=== PATIENT | male | born 1945 | race Caucasian/White ===

== ENCOUNTER 2016-05-24 13:32 | Emergency (ER) | payer OTHER ==
[~2016-05-24] VITALS: Ht 177.8 cm; Wt 114.0 kg
[~2016-05-24 13:32] MED LIST: AMIT50TA3 PO; CHOL100010 PO; DOCU-94 PO; INSU70IN2 SC; LSN20 PO; MULT-506 PO; PANT40TA PO; POTA-331 PO; PREG1CAP28 PO
[2016-05-24 13:38] VITALS: TEMP 36.7; Ht 177.8 cm; Wt 114.0 kg
[2016-05-24] MEDS ORDERED: ALBUT/IPRATROP 3MG/0.5MG NEB 3 ML VIAL INH STA (13:42)
[2016-05-24 13:45] VITALS: O2SAT 99
[2016-05-24 14:30] LABS: BASO % 0.1 %; BASO ABS # 0.01 K/uL (0-0.2); COMPLETE YES; EOS % 1.2 %; HEMATOCRIT 35.9 % (42-52); IG% 0.7 %; LYMPH % 39.1 %; LYMPH ABS # 2.96 K/uL (1.2-3.4); MEAN CELL VOLUME 83.7 fL (80-100); MEAN CORPUSCULAR HEMOGLOBIN 28.7 pg (25-34); MEAN CORPUSCULAR HGB CONC 34.3 g/dl (32-36); MEAN PLATELET VOLUME 11.2 fL (7.4-10.4); MONO % 7.8 %; NEUT % 51.1 %; PLATELET COUNT 224 K/uL (130-400); RED BLOOD COUNT 4.29 M/uL (4.7-6.1); WHITE BLOOD COUNT 7.58 K/uL (4.8-10.8)
[2016-05-24] MEDS ORDERED: AMLO-110 PO (14:34)
[2016-05-24] MEDS ORDERED: LISI40TA PO (14:35)
[2016-05-24 14:46] LABS: INR 1.1 (0.9-1.1); PARTIAL THROMBOPLASTIN RATIO 0.9; PROTHROMBIN TIME (PATIENT) 12.3 SECONDS (9.0-12.0)
[2016-05-24 15:03] LABS: BLOOD UREA NITROGEN 16 mg/dl (7-18); BUN/CREATININE RATIO 14.4 (10-20); CALCIUM 9.5 mg/dl (8.5-10.1); CARBON DIOXIDE 29 mmol/L (21-32); CHLORIDE 101 mmol/L (98-107); GLUCOSE 144 mg/dl (70-99); SODIUM 140 mmol/L (136-145)
[2016-05-24 15:27] LABS: ALKALINE PHOSPHATASE 102 U/L (45-117); ALT/SGPT 49 U/L (12-78)
--- NOTE | 2016-05-24 15:30 | DIAGNOSTIC IMAGING REPORT ---
CHEST 2 VIEWS ROUTINE CLINICAL HISTORY: Respiratory distress. Shortness of breath. COMPARISON STUDY: Chest radiograph December 30, 2015. FINDINGS: Lung volumes are normal. There is no consolidation. Pulmonary vascularity is normal. Cardiac size is normal. Mediastinal contours are normal. The appearance of the chest is unchanged. IMPRESSION: No acute cardiopulmonary findings. Electronically signed by: Xavi Melissa M.D. 05/24/2016 3:29 PM
--- NOTE | 2016-05-24 15:34 | EMERGENCY ROOM VISIT NOTE ---
History Report prepared by Simon: Rohini Connolly Under the Supervision of: Dr. Chris Shahid D.O. First contact with patient: 13:37 Chief Complaint: SHORTNESS OF BREATH Stated Complaint: SHORTNESS OF BREATH History of Present Illness The patient is a 71 year old male who presents to the Emergency Room with complaints of increasing shortness of breath that began one week ago. The patient states that he was recently placed on a new blood pressure medication and since has noticed increasing shortness of breath. He states that he consulted his PCP and states that he was instructed to take an additionally dose of Lasix because he had swelling to his lower extremities. The patient denies his shortness of breath being worsened with exertion. He denies any recent cough, cold, or congestion. The patient denies being on supplemental oxygen at home chronically. He states that he was a previous smoker, but denies smoking for the past thirty years. The patient denies any pain to his lower extremities. Source of History: patient Onset: one week ago Position: other (global) Quality: other (shortness of breath) Timing: other (increasing) Associated Symptoms: No cough Review of Systems See HPI for pertinent positives & negatives. A total of 10 systems reviewed and were otherwise negative. Past Medical & Surgical Medical Problems: (1) Cellulitis of left thigh (2) Cellulitis of left thigh (3) Congestive heart failure (4) Coronary artery disease (5) Diabetic neuropathy (6) Diabetic peripheral neuropathy associated with type 2 diabetes mellitus (7) DM (diabetes mellitus) (8) Dysesthesia (9) Foot deformity (10) Hyperlipidemia (11) Hypertension (12) Loss of sensation (13) Unstable angina (14) Unstable angina (15) Vomiting blood Surgical Problems: (1) S/P angioplasties (2) S/P angioplasty with stent Family History FH: coronary artery disease Social History Smoking Status: Former Smoker Alcohol Use: none Drug Use: none Marital Status: in relationship Housing Status: lives with family Occupation Status: employed Current/Historical Medications Scheduled Amlodipine (Norvasc), 5 MG PO DAILY Aspirin (Aspirin Ec), 81 MG PO QAM Atorvastatin (Lipitor), 80 MG PO HS Budesonide/Formoterol Fumarate (Symbicort 160/4.5 Inhaler ), 2 PUFFS INH BID Carvedilol (Coreg), 25 MG PO BID Cholecalciferol (Vitamin D), 1,000 INTER.UNIT PO DAILY Cinnamon (Cinnamon), 500 MG PO DAILY Cyanocobalamin (Vitamin B-12), 1 TAB SL DAILY Furosemide (Lasix), 40 MG PO QAM Insulin Human Isophan/Regular (Novolin 70/30), 25 UNITS SC Morning Lisinopril (Prinivil), 40 MG PO DAILY Metformin Hcl (Glucophage), 1,000 MG PO BID Multivitamin (Multivitamin), 1 TAB PO QAM Nitroglycerin (Nitrostat), 0.4 MG UT PRN Pantoprazole (Protonix), 40 MG PO BID Potassium Chloride Microencaps (Klor-Con M10), 10 MEQ PO QPM Scheduled PRN Oxycodone/Acetaminophen 5MG/325MG (Percocet 5MG/325MG), 1 TAB PO BID PRN for Pain Ranitidine Hcl (Zantac), 300 MG PO HS PRN for PRN Allergies Coded Allergies: Clindamycin (Verified Allergy, Mild, RASH, 05/24/16) Physical Exam Vital Signs Date Time Temp Pulse Resp B/P Pulse Ox O2 Delivery O2 Flow Rate FiO2 05/24/16 15:24 61 22 117/61 98 Room Air 05/24/16 13:45 99 Room Air 05/24/16 13:41 99 Room Air 05/24/16 13:41 73 05/24/16 13:41 99 Room Air 05/24/16 13:38 36.7 83 16 162/84 98 Room Air Physical Exam CONSTITUTIONAL/VITAL SIGNS: Reviewed / noted above. GENERAL: Non-toxic in appearance. INTEGUMENTARY: Warm, dry, and [place]. HEAD: Normocephalic. EYES: without scleral icterus or trauma. ENT/OROPHARYNX: clear and moist. LYMPHADENOPATHY/NECK: Is supple without lymphadenopathy or meningismus. RESPIRATORY: Lungs clear and equal. CARDIOVASCULAR: Regular rate and rhythm. GI/ABDOMEN: Soft and nontender. No organomegaly or pulsatile mass. No rebound or guarding. Normal bowel sounds. EXTREMITIES: Warm and well perfused. BACK: No CVA tenderness. NEUROLOGICAL: Intact without focal deficits. PSYCHIATRIC: normal affect. MUSCULOSKELETAL: Normally developed with good muscle tone. Medical Decision & Procedures ER Provider Diagnostic Interpretation: X ray results and stated below per my interpretation and radiology interpretation. CHEST 2 VIEWS ROUTINE CLINICAL HISTORY: Respiratory distress. Shortness of breath. COMPARISON STUDY: Chest radiograph December 30, 2015. FINDINGS: Lung volumes are normal. There is no consolidation. Pulmonary vascularity is normal. Cardiac size is normal. Mediastinal contours are normal. The appearance of the chest is unchanged. IMPRESSION: No acute cardiopulmonary findings. Electronically signed by: Xavi Melissa M.D. 05/24/2016 3:29 PM Laboratory Results 05/24/16 14:00 Red Blood Count 4.29, Mean Corpuscular Volume 83.7, Mean Corpuscular Hemoglobin 28.7, Mean Corpuscular Hemoglobin Concent 34.3, Mean Platelet Volume 11.2, Neutrophils (%) (Auto) 51.1, Lymphocytes (%) (Auto) 39.1, Monocytes (%) (Auto) 7.8, Eosinophils (%) (Auto) 1.2, Basophils (%) (Auto) 0.1, Neutrophils # (Auto) 3.88, Lymphocytes # (Auto) 2.96, Monocytes # (Auto) 0.59, Eosinophils # (Auto) 0.09, Basophils # (Auto) 0.01 05/24/16 14:00 Test 05/24/16 14:00 White Blood Count 7.58 K/uL (4.8-10.8) Red Blood Count 4.29 M/uL (4.7-6.1) Hemoglobin 12.3 g/dL (14.0-18.0) Hematocrit 35.9 % (42-52) Mean Corpuscular Volume 83.7 fL (80-100) Mean Corpuscular Hemoglobin 28.7 pg (25-34) Mean Corpuscular Hemoglobin Concent 34.3 g/dl (32-36) Platelet Count 224 K/uL (130-400) Mean Platelet Volume 11.2 fL (7.4-10.4) Neutrophils (%) (Auto) 51.1 % Lymphocytes (%) (Auto) 39.1 % Monocytes (%) (Auto) 7.8 % Eosinophils (%) (Auto) 1.2 % Basophils (%) (Auto) 0.1 % Neutrophils # (Auto) 3.88 K/uL (1.4-6.5) Lymphocytes # (Auto) 2.96 K/uL (1.2-3.4) Monocytes # (Auto) 0.59 K/uL (0.11-0.59) Eosinophils # (Auto) 0.09 K/uL (0-0.5) Basophils # (Auto) 0.01 K/uL (0-0.2) RDW Standard Deviation 41.4 fL (36.4-46.3) RDW Coefficient of Variation 13.7 % (11.5-14.5) Immature Granulocyte % (Auto) 0.7 % Immature Granulocyte # (Auto) 0.05 K/uL (0.00-0.02) Prothrombin Time 12.3 SECONDS (9.0-12.0) Prothromb Time International Ratio 1.1 (0.9-1.1) Activated Partial Thromboplast Time 24.5 SECONDS (21.0-31.0) Partial Thromboplastin Ratio 0.9 D-Dimer 390 ug/L FEU (0-500) Anion Gap 10.0 mmol/L (3-11) Est Creatinine Clear Calc Drug Dose 76.8 ml/min Estimated GFR () 77.3 Estimated GFR (Non- 66.7 BUN/Creatinine Ratio 14.4 (10-20) Calcium Level 9.5 mg/dl (8.5-10.1) Total Bilirubin 1.3 mg/dl (0.2-1) Aspartate Amino Transf (AST/SGOT) U/L (15-37) Alanine Aminotransferase (ALT/SGPT) 49 U/L (12-78) Alkaline Phosphatase 102 U/L (45-117) Total Creatine Kinase U/L (39-308) Creatine Kinase MB 1.4 ng/ml (0.5-3.6) Creatine Kinase MB Ratio (0-3.0) Troponin I < 0.015 ng/ml (0-0.045) Pro-B-Type Natriuretic Peptide 35 pg/ml (0-900) Total Protein 8.2 gm/dl (6.4-8.2) Albumin 4.1 gm/dl (3.4-5.0) Globulin 4.1 gm/dl (2.5-4.0) Albumin/Globulin Ratio 1.0 (0.9-2) Laboratory results as stated above per my review. Medications Administered Medications (Trade) Dose Ordered Sig/Jodi Route Start Time Stop Time Status Last Admin Dose Admin Albuterol/ Ipratropium (Duoneb) 3 ml NOW STAT INH 05/24/16 13:42 05/24/16 13:43 DC 05/24/16 14:08 3 ML ECG Indication: SOB/dyspnea Rate (beats per minute): 65 Rhythm: normal sinus Findings: no acute ischemic change, no ectopy ED Course 1337: Previous medical records were reviewed. The patient was evaluated in room C10. A complete history and physical examination was performed. 1342: Ordered DuoNeb 3 ml INH. 1534: I reevaluated the patient and he is resting comfortably. I discussed the exam findings with him and I discussed the treatment plan. He verbalized complete understanding and agreement. He is ready to go home. Medical Decision the differential was considered includes acute myocardial infarction, acute coronary syndrome, myocarditis, pericarditis, pericardial effusions /tamponad, esophageal perforation, pulmonary embolism, pneumonia, pneumothorax, cardiomyopathy, congestive heart, anemia , COPD/asthma exacerbation. This is a 71-year-old male who presents to the ED with a chief complaint shortness of breath. The patient states that he is felt short of breath for 1- 2 weeks. He states that he saw his PCP for the symptoms. The PCP was concerned that his symptoms could be related to congestive heart failure. He was told to take additional Lasix. The patient's symptoms do not improve with this. He states that his symptoms are with or without exertion. He denies having any chest pains. No fevers. No other complaints. His vital signs are normal. His physical exam was normal. His lungs are clear. He is no distress. His oxygen saturations are 98% on room air. Laboratory studies included normal CBC and PRP. Chemistry panel was unremarkable. D-dimer is negative. Troponin was negative. BNP is normal. EKG showed a normal sinus rhythm without ischemic change. The patient was told the results the test. The exact cause the patient's dyspnea is unclear. He does not appear to be dyspneic. His lungs are clear. His oxygen saturations are normal. His vital signs are normal. His blood work and x-ray were unremarkable. The patient is felt to be stable for discharge and outpatient follow-up. Impression Primary Impression: Dyspnea Scribe Attestation The scribe's documentation has been prepared under my direction and personally reviewed by me in its entirety. I confirm that the note above accurately reflects all work, treatment, procedures, and medical decision making performed by me. Departure Information Dispostion Home / Self-Care Referrals RV. Quiroga MD (PCP) Forms HOME CARE DOCUMENTATION FORM, IMPORTANT VISIT INFORMATION Patient Instructions A Signature Page, My [facility] Additional Instructions Your testing today did not reveal a cause for your difficulty breathing. Follow -up with your doctor this week for recheck. Return for significant worsening or new symptoms.
[2016-05-24 16:53] VITALS: BP 148/67; PULSE 61; O2SAT 97
[2016-07-02] MEDS ORDERED: FURO40TA3 PO (08:31)
[2016-07-02] MEDS ORDERED: ASPI81TA28 PO (08:31)
[2016-07-02] MEDS ORDERED: NITR0.4S UT (08:31)
[2016-07-02] MEDS ORDERED: RANI300T PO (08:31)
[2016-07-02] MEDS ORDERED: METF1000 PO (08:31)
[2016-07-02] MEDS ORDERED: CINN500T PO (08:56)
[2016-07-02] MEDS ORDERED: OXYC-57 PO (10:05)
[2016-07-02] MEDS ORDERED: CARV25TA PO (13:48)
[2016-07-02] MEDS ORDERED: PANT40TA2 PO (15:32)
== END 2016-05-24 17:05 | disposition home or self-care (01) ==
LOC: EDBD 13:32 → C.EDC 13:34
DX: R06.00 Dyspnea, unspecified (principal); E11.9 Type 2 diabetes mellitus without complications; E78.5 Hyperlipidemia, unspecified; I10 Essential (primary) hypertension; Z79.82 Long term (current) use of aspirin; Z79.899 Other long term (current) drug therapy

== ENCOUNTER → 2016-05-26 | Outpatient (CLI) | payer OTHER ==
[~2016-05-26] MED LIST changes: -AMIT50TA3 PO; +AMLO-110 PO; +ANT25 PO; +ASPI81TA28 PO; +ATOR-26 PO; +CARV25TA PO; +CHOL1CAP57 PO; +CINN500T PO; +CYAN100048 SL; +FURO40TA3 PO; +ISOS30TA35 PO; +LISI40TA PO; +METF1000 PO; +MULT-106 PO; +NITR0.4S UT; +OPTIRAY 320 IV PRN; +OXYC-57 PO; +POTA10TA32 PO; -PREG1CAP28 PO; +PRT/40 PO; +RANI300T PO; +SYMIN160 INH
--- NOTE | 2016-05-26 14:01 | DIAGNOSTIC IMAGING REPORT ---
CT ANGIOGRAM OF THE CHEST CLINICAL HISTORY: Dyspnea. COMPARISON STUDY: Chest x-ray dated 05/24/2016. Chest CT scans dated 09/06/2015 and 11/12/2010. TECHNIQUE: Following the IV administration of 119 cc of Optiray 320, CT angiogram of the chest was performed from the upper abdomen to the thoracic inlet utilizing the pulmonary embolus protocol. Images are reviewed in the axial, sagittal, and coronal planes. 3-D MIPS images are created and assessed. IV contrast was administered without complication. CT DOSE: 678.53 mGycm FINDINGS: Thyroid: Imaged portions of the thyroid gland are normal in size and attenuation. Thoracic aorta: There is atherosclerotic calcification of the thoracic aorta, which is normal in caliber and demonstrates standard 4-vessel variant arch anatomy. No aneurysm or dissection is seen. Pulmonary vasculature: The pulmonary trunk is normal in caliber. There are no filling defects identified in main, lobar, or segmental pulmonary branches to suggest pulmonary embolus. Heart: The heart is mildly enlarged an without pericardial effusion. The coronary arteries are densely calcified. Lungs and pleural spaces: There is mild emphysema. No airspace consolidation or pleural effusion is seen. A 7 mm nodule in the lingula is seen on image #175. This was likely present in 2011 but was suboptimally assessed due to motion artifact. A 5 mm right lower lobe nodule is seen image #223 is unchanged from 2011. The trachea and central airways are clear. Mediastinum: There is no mediastinal lymphadenopathy. [place]: Clear. Axillae: There is no axillary lymphadenopathy. Upper abdomen: Calcified gallstones are identified. The liver is cirrhotic in morphology, noting nodularity of the surface contour and hypertrophy of the left lobe. There is evidence of hepatic steatosis with fatty sparing adjacent to gallbladder fossa. The spleen is enlarged measuring 16 cm in length. A small hiatal hernia is noted. Skeletal structures: The skeletal structures are osteopenic. Degenerative change and DISH are noted throughout the thoracic spine. No lytic or blastic bony lesions are seen. Arthritic change is seen in the shoulders. IMPRESSION: 1. There is no evidence of pulmonary embolus in the main, lobar, or segmental pulmonary arteries. 2. Cardiomegaly and mild emphysema. 3. There is no airspace consolidation or pleural effusion. 4. Cholelithiasis. 5. Cirrhotic liver morphology and splenomegaly indicating portal hypertension. There is also evidence of hepatic steatosis. 6. There are pulmonary nodules identified in the right lower lobe and lingula. These are likely unchanged from 2011 and of low suspicion. See above. Electronically signed by: Shon Hawthorne M.D. 05/26/2016 1:59 PM Dictated Date/Time: 05/26/2016 1:50 PM
== END | disposition home or self-care (01) ==
LOC: C.CTS 13:23
PROVIDERS: ATTEND Internal Medicine Pulmonary Disease
DX: R06.02 Shortness of breath (principal); R91.1 Solitary pulmonary nodule; I51.7 Cardiomegaly

== ENCOUNTER → 2016-05-29 | Outpatient (CLI) | payer OTHER ==
[~2016-05-29] MED LIST changes: -OPTIRAY 320 IV PRN
[2016-05-29 10:51] LABS: BLOOD UREA NITROGEN 12 mg/dl (7-18); CREATININE 0.96 mg/dl (0.60-1.40)
[2016-05-29 11:39] LABS: ESTIMATED AVERAGE GLUCOSE 171 mg/dl; HA1C FLAG Normal (Normal)
== END | disposition home or self-care (01) ==
LOC: C.LAB1850 09:51
PROVIDERS: ATTEND Internal Medicine Pulmonary Disease
DX: E11.65 Type 2 diabetes mellitus with hyperglycemia (principal)

== ENCOUNTER → 2016-06-08 | Outpatient (CLI) | payer OTHER ==
[~2016-06-08] MED LIST changes: +REGADENOSON 0.4 MG/5 ML SYR ONE
--- NOTE | 2016-06-09 03:11 | MYOCARDIAL PERFUSION SCAN ---
NUCLEAR STRESS TEST PRIMARY CARE PHYSICIAN: Dr. Hanley. REQUESTING PHYSICIAN: Dr. Bull Castillo. Type of study: One day nuclear medicine technetium-99m Cardiolite myocardial perfusion scan CLINICAL HISTORY: Known coronary artery disease, recent dyspnea on exertion. COMPARISON: None. EKG: At rest shows normal sinus rhythm at a rate of [address] abnormalities. STRESS EKG: Nondiagnostic with no regadenoson induced ST changes or arrhythmias. TECHNIQUE: For the stress portion of the study 33.0 mCi of technetium-99m Cardiolite IV was injected at 9:35 a.m. on 06/08/2016. Thirty minutes following the injection, imaging of the heart was performed in multiple projections. For the rest portion of the study 10.8 mCi of technetium-99m Cardiolite was injected IV at 7:45 a.m. One hour following the injection, imaging of the heart was performed in the same projections. TECHNIQUE: Raw images were reviewed in detail. There was a notable mild vertical motion on both stress and rest. There was moderate liver uptake potentially near the inferior border of the heart. Otherwise, no significant other attenuators noted. The short axis, vertical long axis, and horizontal long axis images were reviewed in detail. There was a small, mild, largely fixed defect involving the inferior wall from the base to apex. No evidence of visual TID. The LV systolic function was normal with an EF of 70%. There were no significant regional wall motion abnormalities noted. LV size was normal with an end-diastolic volume of 82. IMPRESSION: 1. Negative regadenoson Cardiolite for ischemia. There is a small, mild largely fixed inferior perfusion defect with no corresponding wall motion abnormality. This likely represent artifact; however, less likely could represent inferior infarct. 2. Normal left ventricular size and function. Ejection fraction 70%. No regional wall motion abnormalities. 3. Stress EKG was nondiagnostic with no regadenoson induced EKG changes or arrhythmias or symptoms. MTDD
== END | disposition home or self-care (01) ==
LOC: C.NUCL 07:00
PROVIDERS: ATTEND Internal Medicine Interventional Cardiology
DX: I25.10 Atherosclerotic heart disease of native coronary artery without angina pectoris (principal); R06.02 Shortness of breath

== ENCOUNTER → 2016-06-09 | Outpatient (CLI) | payer OTHER ==
[~2016-06-09] MED LIST changes: +GADOXETATE DISODIUM IV PRN; -REGADENOSON 0.4 MG/5 ML SYR ONE
--- NOTE | 2016-06-09 13:01 | DIAGNOSTIC IMAGING REPORT ---
MRI OF THE ABDOMEN COMBO CLINICAL HISTORY: Follow-up possible liver lesion. History of gastric surgery. COMPARISON STUDY: Abdominal CT dated 01/01/2016. TECHNIQUE: MRI of the abdomen is performed transverse T1 and T2-weighted sequences in the axial and coronal planes. Contrast enhanced sequences were acquired following the IV administration of 10 cc of Eovist. Subtraction imaging was utilized. FINDINGS: Lower chest: No pleural effusion is identified. The heart is normal in size. Liver: The liver is normal in enlarged, measuring 22.6 cm in length. There is mild nodularity of the hepatic surface contour with hypertrophy of the left lobe and caudate suggesting early changes of cirrhosis. Signal intensity is heterogeneous. There is diffuse drop in signal throughout the liver consistent with steatosis. Fatty sparing is seen adjacent to gallbladder fossa. No intrahepatic biliary ductal dilatation is seen. The hepatic veins and portal veins are patent. There is no hepatic mass lesion identified. The lesion questioned in segment 5 adjacent to gallbladder fossa by CT likely corresponds to focal lobulation and geographic fatty sparing. Gallbladder: Unremarkable. Spleen: The spleen is enlarged, measuring 16 cm in length. Pancreas: An 11 mm lipoma in the distal pancreatic body is unchanged from previous. The pancreas is otherwise normal as visualized. Adrenal glands: Unremarkable. Kidneys: The kidneys insert cortical atrophy and are without hydronephrosis. The kidneys enhance and excrete symmetrically. A 1.5 cm minimally complex cyst is noted in the left kidney. Abdominal aorta: The abdominal aorta is normal in course and caliber noting atherosclerotic plaque and regularity. Bowel: Postoperative changes identified along the greater curvature of the stomach. Stomach and duodenum are normal in configuration. There is no evidence of bowel obstruction. Fecal retention is noted in the colon. Peritoneum: There is no abdominal ascites. Lymphadenopathy: Prominent lymph nodes in the aleks hepatis and gastrohepatic region are nonspecific and may be related to cirrhosis and steatosis. These are similar to previous. Skeletal structures: Visualized skeletal structures times are normal marrow signal intensity. IMPRESSION: 1. No hepatic mass lesion is identified. The lesion questioned in segment V adjacent to the gallbladder fossa by CT likely represents focal contour lobulation and geographic fatty sparing. 2. The liver is enlarged and demonstrates early changes of cirrhosis as well as hepatic steatosis. 3. Postoperative changes are again seen along the greater curvature of the stomach. 4. Splenomegaly. 5. Prominent lymph nodes in aleks hepatis and gastrohepatic region are nonspecific and similar to previous. 6. Additional findings as above. Electronically signed by: Shon Hawthorne M.D. 06/09/2016 12:59 PM Dictated Date/Time: 06/09/2016 12:42 PM
== END | disposition home or self-care (01) ==
LOC: C.MRI 11:24
PROVIDERS: ATTEND Internal Medicine
DX: K31.9 Disease of stomach and duodenum, unspecified (principal); D21.4 Benign neoplasm of connective and other soft tissue of abdomen; K76.0 Fatty (change of) liver, not elsewhere classified; R16.1 Splenomegaly, not elsewhere classified; R93.2 Abnormal findings on diagnostic imaging of liver and biliary tract

== ENCOUNTER → 2016-06-28 | Outpatient (CLI) | payer OTHER ==
[~2016-06-28] MED LIST changes: -GADOXETATE DISODIUM IV PRN
--- NOTE | 2016-06-29 07:25 | PAP/PSG TECHNICIAN REPORT ---
[facility] Car Pincher Polysomnogram Report Study name: None Report date: 06/29/2016 Study date: 06/28/2016 Referring Physician: DR. WEN Name: CALLIE GARIBAY Interpreting Physician: Wyatt Hawkins M.D. Date of : 1945 Car Pincher: Betsy Smith [facility]. Sex: Male Age: 71 Study Type: PSG PAP Weight: 249 lbs 18 in Height: 71 years, Height 5' 11" Neck Circum: BMI: 34.72 Medications: AMITRIPTYLINE 50 MG, AMLODIPINE 5 MG, ASPIRIN 81 MG, ATORVASTATIN 80 MG, CARVEDILOL 25 MG, CINNAMON, COLACE, FUROSEMIDE 40 MG, LISINOPRIL 20 MG, MECLIZINE 25 MG, METFORMIN 1000 MG, NITROSTAT 0.4 MG, NOVOLIN 70/30 100 UNIT/ML, ONE-A-DAY VIT, OXYCODONE-ACTEAMINOPHEN 5-325 MG, PANTOPRAZOLE 40 MG, POTASSIUM CHOLRIDE 10 MEQ, RANITIDINE 300 MG, SYMBICORT 160-4.5 MCG/ACT, VIT B-12, VIT D3 1000 UNIT Patient History 71 yr-old male here for a CPAP update study. He is currently on a pressure of 12 CMH2O. He is not happy with his mask which is currently broken. Tonight, he is wearing an Eson 2 nasal mask size large from [employer]. His [place] scale is 19. The test was started on room air and 4 CMH2O. ETCO2 testing was not utilized during this study. Room 1 Parameters Monitored NPSG: E1-M2, E2-M1, Fp1-M2, Fp2-M1, F3-M2, F4-M2, F4-M1, C3-M2, C4-M2, C4-M1, O1-M2, O2-M2, O2-M1, T3-M2, T4-M1, P3-M2, P4-M1, CHIN1, CHIN2, HR, EKG, Legs, PFLOW, SNOR, FLOW, CFLOW, Tidal Volume, THOR, ABDO, SpO2, PLTH, CPRESS, ETCO2 Wave, ETCO2, pH Sleep Architecture Sleep Stages Time at Lights Off 10:11:50 PM STAGES Time (min.) TST (%) Time at Lights On 5:28:50 AM Wake 36.5 -- Total Recording Time (TRT) 436.00 min. N1 80.5 20 Total Sleep Period (TSP) 434.5 min. N2 272.5 68 Total Sleep Time (TST) 399.5min. N3 0.0 0 Awake Time 36.5 min. REM 46.5 12 Wake after Sleep Onset 35.0 min. Sleep Efficiency (SE) 92 % Sleep Onset Latency (MERLE) 2.5 min. Number of Stage 1 Shifts None Awakenings 24 Stage Changes 156 Number of REM periods 5 REM 46.5 12 REM Latency 104.0 min. NREM 353.0 88 Body Position Analysis Supine Right Left Side Prone Vertical Total Sleep Time (min.) 190.7 175.6 61.2 236.79 0.0 0.0 Total Sleep Time (%) 41% 44% 15% 59 0% N/A% Total Sleep Time REM (min.) 14.5 24.0 8.0 None 0.0 0.0 Total Sleep Time NREM (min.) 148.2 151.6 53.2 None 0.0 0.0 Intermittent Wake (min.) 28.0 4.9 3.6 None 0.0 0.0 Total Sleep Period (%) 44% None None None None None Arousals Myoclonus (PLM) * Events Count Index Events Count Index Spontaneous 27 4 Events Awake (PLMW) 68 111.8 Respiratory 17 2.7 Events Asleep w/ Arousal (PLMA) 85 12.8 PLM 84 13 Events Asleep w/o Arousal (PLMS) 992 149.0 Snoring 15 2 Total Asleep 1,077 161.8 Total 140 21 Total 1,145 158 Respiratory Analysis * CA OA MA CH H RERA Total Count 3 14 0 0 49 11 66 Index 0.5 2.1 0.0 0 7.4 2 11.6 Mean Duration 10.8 14.7 0.0 0.00 14.8 16.0 14.8 Longest Duration 11.0 20.8 0.0 0.00 0.0 22.6 25.7 Respiratory Event Summary Total Supine ~Supine Right Left Prone REM NREM Apneas Count 17 16 1 1 0 N/A 3 14 Index 2.6 6 0 0.3 0.0 N/A 4 2 Hypopneas (4% Desat) Count 49 28 21 7 14 N/A 3 46 Index 7.4 10.3 5 2.4 13.7 N/A 3.9 7.8 Apneas & All Hypopneas Count 66 44 22 8 14 N/A 6 60 Index 9.9 16 6 3 14 N/A 7.7 10.2 Respiratory Events (Head [employer] Tennis Coach+All Hyp+RERA) Count 66 54 23 9 14 N/A 6 60 Index 11.6 20 6 3.1 13.7 N/A 7.7 12.1 Respiratory Related Arousal Count 17 54 2 1 1 N/A 1 17 Index 2.7 6 1 0 1 N/A 1 3 Snoring Analysis Supine Right Left Prone REM NREM Total Snore duration 14.4 min Snores count 353 60 25 N/A 15 423 438 Snore mean duration 2.0 Sec Snores index 130 20 25 N/A 19.4 71.9 65.8 TST with snoring (%) 3.6% Desaturation Event Summary: Minimum %SpO2 Event Count Mean/Min/Max Duration(sec.) Desaturation Index % Time In Bed > 90 136 22.5 / 6.5 / 57.0 22.9 83.0 86 - 90 13 19.8 / 8.8 / 43.3 10.7 17.0 81 - 85 0 N/A 0.0 0.0 76 - 80 0 N/A 0.0 0.0 71 - 75 0 N/A 0.0 0.0 66 - 70 0 N/A 0.0 0.0 61 - 65 0 N/A 0.0 0.0 56 - 60 0 N/A 0.0 0.0 51 - 55 0 N/A 0.0 0.0 < 50 0 N/A 0.0 0.0 Total REM NREM Awake <50% 0.0 min. 0.0 min. 0.0 min. 0.0 min. 51 - 60% 0.0 min. 0.0 min. 0.0 min. 0.0 min. 61 - 70% 0.0 min. 0.0 min. 0.0 min. 0.0 min. 71 - 80% 0.0 min. 0.0 min. 0.0 min. 0.0 min. 81 - 90% 73.1 min. 9.0 min. 59.2 min. 4.9 min. 91 - 100% 356.7 min. 37.5 min. 288.1 min. 31.1 min. Average 92 91 92 93 Minimum SpO2 87 88 87 88 Desaturation Event Index 18.9 3.9 18.2 44.4 # Desat. Events below 89% 24 N/A 23 1 Time(%) with Saturation below 89% 2.3 0.1 2.1 0.1 Time(min.) with Saturation below 89% 9.9 0.5 9.1 0.3 Time (mins) REM (mins) NREM (mins) % of TST SpO2 Below 90% 88 2 N86 7.1 SpO2 Below 88% 8 0 0 0 Heart Rate Analysis Min (bpm) Max (bpm) Average (bpm) Awake 55 127 61 NREM 52 127 58 REM 54 64 58 Overall 52 127 58 Supplemental O2 Values Minimum O2 level: None Value Start Time End Time Car Pincher Comments Mr. Garibay slept in the right, left, and supine positions. No cardiac arrhythmias were noted. PLMs, many leg movements, and arousals from leg movements were noted throughout the study. No bruxism noted. CPAP was initiated at +4 CMH2O and up-titrated to a level of +12 CMH2O, Cflex 3. An Eson 2 nasal mask size large from [employer] was used during titration He did not wake up to use the restroom during the night. Mr. Garibay stated that he slept fairly well. The final report will be interpreted and signed by a sleep physician. The completed physician report will then be placed in the patient medical record. Therapy Event: Therapy (cm H20) 4 6 7 9 10 12 Total Time at Pressure (min.) 0.1 68.0 199.1 57.0 78.5 33.3 TST at Pressure (min.) 0.0 40.6 193.1 55.0 78.5 32.3 # Periods 1 1 1 1 1 1 Sleep Onset (min.) N/A 2.4 0.0 0.0 0.0 0.0 REM Onset (min.) N/A N/A 38.4 0.0 58.3 N/A Sleep Efficiency % 0 59 97 96 100 97 Wakefulness (%) 100.0 40.3 3.0 3.5 0.0 3.0 Wakefulness (min.) 0.1 27.4 6.0 2.0 0.0 1.0 NREM 1 (%) 0.0 27.2 14.1 21.1 11.7 38.4 NREM 1 (min.) 0.0 18.5 28.0 12.0 9.2 12.8 NREM 2 (%) 0.0 32.5 73.8 51.2 69.8 58.6 NREM 2 (min.) 0.0 22.1 146.9 29.2 54.8 19.5 NREM 3 (%) 0.0 0.0 0.0 0.0 0.0 0.0 NREM 3 (min.) 0.0 0.0 0.0 0.0 0.0 0.0 REM (%) 0.0 0.0 9.1 24.2 18.5 0.0 REM (min.) 0.0 0.0 18.2 13.8 14.5 0.0 # Arousals N/A 29 50 14 28 19 Arousal Index N/A 42.9 15.5 15.3 21.4 35.3 # Snore N/A 13 187 32 163 43 Snore Index N/A 19.2 58.1 34.9 124.5 79.9 AHI N/A 20.7 4.0 16.4 14.5 9.3 AHI Supine N/A 46.7 4.3 25.4 15.7 16.4 AHI Non-Supine N/A 13.3 4.0 6.8 8.9 0.0 NREM AHI N/A 20.7 4.5 21.8 12.2 9.3 REM AHI N/A N/A 0.0 0.0 24.8 N/A RDI N/A 20.7 5.9 16.4 17.6 11.2 # Obstructive N/A 1 2 2 6 3 # Central Ap N/A 1 0 2 0 0 # Mixed N/A 0 0 0 0 0 # Hypopneas N/A 12 11 11 13 2 RERAS N/A 0 6 0 4 1 Total Respiratory Events N/A 14 19 15 23 6 Time Below SpO2 89.00% (min.) 0.0 0.2 7.9 0.5 0.9 0.0 Mean NREM SpO2 (%) N/A 92 92 92 92 92 Mean REM SpO2 (%) N/A N/A 91 92 91 N/A Mean Sleep SpO2 (%) N/A 92 92 92 92 92 Min NREM SpO2 (%) N/A 88 87 88 87 89 Min REM SpO2 (%) N/A N/A 89 91 88 N/A Position Supine (min.) 0.0 9.0 42.0 28.4 65.0 18.3 Position Non-supine (min.) 0.0 31.6 151.1 26.6 13.5 14.0 LM Index Sleep N/A 186.2 199.8 97.1 114.6 128.3 LM Index NREM N/A 186.2 212.3 119.4 125.6 128.3 LM Index REM N/A N/A 79.1 30.5 66.2 N/A Mean Heart Rate (bpm) N/A 59 58 57 57 56 Min Heart Rate (bpm) N/A 55 53 52 52 52 CPAP REPORT Therapy Detail Time / Page # Comment CPAP 4 cm H2O Nasal Mask Flex Pressure Relief Humidifier on 10:09:29 PM / pg. 214 CPAP 6 cm H2O Nasal Mask Flex Pressure Relief Humidifier on 10:11:58 PM / pg. 219 INCREASED PRESSURE AT PT'S REQUEST TO HAVE MORE AIRFLOW CPAP 7 cm H2O Nasal Mask Flex Pressure Relief Humidifier on 11:19:56 PM / pg. 355 INCREASED FOR SOME HYPOPNEAS CPAP 9 cm H2O Nasal Mask Flex Pressure Relief Humidifier on 2:39:03 AM / pg. 753 INCREASED FOR APNEAS, HYPOPNEAS, AND RERAS CPAP 10 cm H2O Nasal Mask Flex Pressure Relief Humidifier on 3:36:02 AM / pg. 867 INCREASED FOR MORE HYPOPNEAS CPAP 12 cm H2O Nasal Mask Flex Pressure Relief Humidifier on 4:55:33 AM / pg. 1026 INCREASED FOR APNEAS AND HYPOPNEAS
--- NOTE | 2016-06-29 14:51 | POLYSOMNOGRAPH REPORT ---
CLINICAL DATA: 71-year-old male with BMI of 34.[address] Vegas for a CPAP titration study. He is currently using 12 cm of water CPAP. His major difficulty is with his mask. On this evening, he used an Eson 2 nasal mask size large from [employer]. His [place] sleepiness score was elevated at 19/24. SLEEP ARCHITECTURE: Total sleep period was 434.5 minutes. Total sleep time was 399.5 minutes divided between 353 minutes of non-REM sleep and 46.5 minutes of REM sleep. Sleep onset latency was 2.5 minutes. REM latency was 104 minutes. Sleep efficiency was 92%. Awake after sleep onset was 35 minutes. Sleep consisted of stage N1 20%, N2 68%, REM 12%. AROUSAL DATA: 140 arousals were recorded for an index of 21 per hour. PLM DATA: Severe PLMD was noted. There were 1,077 limb movements during sleep noted for an index of 162 per hour with arousal index of 12.8 per hour. RESPIRATORY DATA: The AHI was 9.9. The RDI was 11.6. There were 3 central and 14 obstructive apneic episodes. The longest duration of apnea was 20.8 seconds. There were 49 hypopneic episodes. The mean duration of hypopnea was 14.8 seconds. There were 11 RERAs. The longest RERA was 22.6 seconds. OXIMETRY DATA: Very mild nocturnal hypoxemia was seen. Oxygen mally was 87% during non-REM sleep. The mean saturation was 92%. Time below 88% was 8 minutes. EKG: Heart ranged from 52-127 beats per minute. No arrhythmias were noted. [employer] SUPERVISOR'S COMMENTS: The patient slept in the right, left, and supine position. Very frequent leg movements and arousals due to leg movements were noted throughout the night. The patient was started on CPAP and was titrated up to 12 cm of water pressure using an Eson 2 nasal mask, large size from [employer]. At his final pressure setting, the patient slept for 32.3 minutes with an AHI of 9. IMPRESSION: Obstructive sleep apnea/hypopnea and severe PLMD. The patient's sleep apnea was corrected with CPAP at 12 cm of water pressure, C-Flex setting of 3 with an Eson 2 nasal mask size large from [employer]. He continued to have significant PLMD with frequent arousals due to leg movements. RECOMMENDATIONS: The patient should be continued on CPAP at 12 cm of water pressure, C-Flex setting #3 using the above noted interface. He could have an evaluation of possible causes/treatment for PLMD considered if clinically indicated. HOAD
== END | disposition home or self-care (01) ==
LOC: C.NEUR 20:00
PROVIDERS: ATTEND Internal Medicine Pulmonary Disease
DX: G47.33 Obstructive sleep apnea (adult) (pediatric) (principal)

== ENCOUNTER 2016-07-02 14:04 | Emergency (ER) | payer OTHER ==
[~2016-07-02] VITALS: Ht 177.8 cm; Wt 117.1 kg
[2016-07-02 14:04] VITALS: TEMP 36.6; Ht 177.8 cm; Wt 117.1 kg
[~2016-07-02 14:04] MED LIST changes: -ANT25 PO; -ATOR-26 PO; -CHOL1CAP57 PO; -CYAN100048 SL; -DOCU-94 PO; -ISOS30TA35 PO; -LSN20 PO; -MULT-106 PO; -POTA10TA32 PO; -PRT/40 PO; -SYMIN160 INH
[2016-07-02 14:14] VITALS: O2SAT 97
[2016-07-02] MEDS ORDERED: CYAN100048 SL (14:15)
[2016-07-02] MEDS ORDERED: SYMIN160 INH (14:34)
[2016-07-02] MEDS ORDERED: ALBUT/IPRATROP 3MG/0.5MG NEB 3 ML VIAL INH STA (15:19)
[2016-07-02] MEDS ORDERED: SODIUM CHLORIDE 0.9% 1000ML 1,000 ML IV STA (15:19)
[2016-07-02] MEDS ORDERED: PRT/40 PO (15:32)
[2016-07-02] MEDS ORDERED: ANT25 PO (15:32)
[2016-07-02] MEDS ORDERED: LSN20 PO (15:32)
[2016-07-02] MEDS ORDERED: ISOS30TA35 PO (15:32)
[2016-07-02 15:34] LABS: BASO % 0.2 %; BASO ABS # 0.01 K/uL (0-0.2); COMPLETE YES; EOS % 1.4 %; HEMATOCRIT 34.8 % (42-52); IG% 0.4 %; LYMPH % 40.9 %; LYMPH ABS # 2.27 K/uL (1.2-3.4); MEAN CELL VOLUME 85.9 fL (80-100); MEAN CORPUSCULAR HEMOGLOBIN 27.9 pg (25-34); MEAN CORPUSCULAR HGB CONC 32.5 g/dl (32-36); MEAN PLATELET VOLUME 10.7 fL (7.4-10.4); MONO % 8.6 %; NEUT % 48.5 %; PLATELET COUNT 176 K/uL (130-400); RED BLOOD COUNT 4.05 M/uL (4.7-6.1); WHITE BLOOD COUNT 5.55 K/uL (4.8-10.8)
[2016-07-02] MEDS ORDERED: MULT-106 PO (15:40)
[2016-07-02] MEDS ORDERED: INSU70IN2 SC ×2 (15:40)
[2016-07-02] MEDS ORDERED: POTA10TA32 PO (15:40)
[2016-07-02] MEDS ORDERED: DOCU-94 PO (15:40)
[2016-07-02 15:42] LABS: BUN/CREATININE RATIO 9.8 (10-20); CALCIUM 8.9 mg/dl (8.5-10.1); CREATININE 0.99 mg/dl (0.60-1.40); POTASSIUM 4.2 mmol/L (3.5-5.1)
[2016-07-02] MEDS ORDERED: CHOL1CAP57 PO (15:42)
[2016-07-02 15:47] LABS: ALB/GLOB RATIO 0.9 (0.9-2); CKMB/CK RATIO 0.9 (0-3.0)
--- NOTE | 2016-07-02 15:54 | DIAGNOSTIC IMAGING REPORT ---
CHEST 2 VIEWS ROUTINE CLINICAL HISTORY: Respiratory distress. Dyspnea. COMPARISON STUDY: Chest CT May 26, 2016. FINDINGS: Lung volumes are normal. There is no consolidation. There is no pneumothorax or pleural effusion. Pulmonary vascularity is normal. Cardiac size is within normal limits. The appearance of the chest is unchanged. IMPRESSION: No acute cardiopulmonary findings. Electronically signed by: Xavi Melissa M.D. 07/02/2016 3:53 PM Dictated Date/Time: 07/02/2016 3:52 PM
--- NOTE | 2016-07-02 16:13 | EMERGENCY ROOM VISIT NOTE ---
ED Visit Note First contact with patient: 15:02 I have seen and examined this patient with Wyatt King and generally agree with the treatment plan as discussed. Problem List Medical Problems: (1) Cellulitis of left thigh Status: Resolved (2) Cellulitis of left thigh Status: Resolved (3) Congestive heart failure Status: Chronic (4) Coronary artery disease Status: Chronic (5) Diabetic neuropathy Status: Chronic (6) DM (diabetes mellitus) Status: Chronic (7) Hyperlipidemia Status: Chronic (8) Hypertension Status: Chronic (9) Unstable angina Status: Resolved (10) Unstable angina Status: Resolved Surgical Problems: (1) S/P angioplasties Status: Resolved (2) S/P angioplasty with stent Status: Resolved Current/Historical Medications Scheduled Aspirin (Aspirin Ec), 81 MG PO QAM Atorvastatin (Lipitor), 80 MG PO HS Budesonide/Formoterol Fumarate (Symbicort 160/4.5 Inhaler ), 2 PUFFS INH BID Carvedilol (Coreg), 25 MG PO BID Cholecalciferol (Vitamin D3), 1,000 INTER.UNIT PO DAILY Cinnamon (Cinnamon), 500 MG PO DAILY Cyanocobalamin (Vitamin B-12), 1,000 MCG SL DAILY Furosemide (Lasix), 80 MG PO QAM Insulin Isophan/Regular (Novolin 70/30), 25 UNITS SC QAM Insulin Isophan/Regular (Novolin 70/30), 45 UNITS SC QPM Isosorbide Mononitrate Ext Rel (Imdur Ext Rel), 30 MG PO DAILY Lisinopril (Lisinopril), 20 MG PO BID Metformin Hcl (Glucophage), 1,000 MG PO BID Multiple Vitamins W/ Minerals (One Daily Mens), 1 TAB PO DAILY Pantoprazole (Pantoprazole Sodium), 40 MG PO BID Potassium Chloride Microencaps (Potassium Chloride Er), 10 MEQ PO DAILY Ranitidine Hcl (Zantac), 300 MG PO HS Scheduled PRN Docusate Sodium (Colace), 100 MG PO DAILY PRN for Constipation Meclizine HCl (Meclizine HCl), 25 MG PO DAILY PRN for Dizziness Nitroglycerin (Nitrostat), 0.4 MG UT UD PRN for Chest Pain Oxycodone/Acetaminophen 5MG/325MG (Percocet 5MG/325MG), 1 TAB PO Q8 PRN for Pain Allergies Coded Allergies: Clindamycin (Verified Allergy, Mild, RASH, 05/24/16) Vital Signs Date Time Temp Pulse Resp B/P Pulse Ox O2 Delivery O2 Flow Rate FiO2 07/02/16 15:51 59 18 128/45 100 Room Air 07/02/16 15:13 61 18 117/51 95 Room Air 07/02/16 14:30 61 18 122/54 98 Room Air 07/02/16 14:14 97 Room Air 07/02/16 14:12 68 07/02/16 14:04 36.6 66 16 131/65 97 Room Air Laboratory Results 07/02/16 13:45 Red Blood Count 4.05, Mean Corpuscular Volume 85.9, Mean Corpuscular Hemoglobin 27.9, Mean Corpuscular Hemoglobin Concent 32.5, Mean Platelet Volume 10.7, Neutrophils (%) (Auto) 48.5, Lymphocytes (%) (Auto) 40.9, Monocytes (%) (Auto) 8.6, Eosinophils (%) (Auto) 1.4, Basophils (%) (Auto) 0.2, Neutrophils # (Auto) 2.69, Lymphocytes # (Auto) 2.27, Monocytes # (Auto) 0.48, Eosinophils # (Auto) 0.08, Basophils # (Auto) 0.01 07/02/16 13:45 Test 07/02/16 13:45 White Blood Count 5.55 K/uL (4.8-10.8) Red Blood Count 4.05 M/uL (4.7-6.1) Hemoglobin 11.3 g/dL (14.0-18.0) Hematocrit 34.8 % (42-52) Mean Corpuscular Volume 85.9 fL (80-100) Mean Corpuscular Hemoglobin 27.9 pg (25-34) Mean Corpuscular Hemoglobin Concent 32.5 g/dl (32-36) Platelet Count 176 K/uL (130-400) Mean Platelet Volume 10.7 fL (7.4-10.4) Neutrophils (%) (Auto) 48.5 % Lymphocytes (%) (Auto) 40.9 % Monocytes (%) (Auto) 8.6 % Eosinophils (%) (Auto) 1.4 % Basophils (%) (Auto) 0.2 % Neutrophils # (Auto) 2.69 K/uL (1.4-6.5) Lymphocytes # (Auto) 2.27 K/uL (1.2-3.4) Monocytes # (Auto) 0.48 K/uL (0.11-0.59) Eosinophils # (Auto) 0.08 K/uL (0-0.5) Basophils # (Auto) 0.01 K/uL (0-0.2) RDW Standard Deviation 42.6 fL (36.4-46.3) RDW Coefficient of Variation 13.5 % (11.5-14.5) Immature Granulocyte % (Auto) 0.4 % Immature Granulocyte # (Auto) 0.02 K/uL (0.00-0.02) Anion Gap 10.0 mmol/L (3-11) Est Creatinine Clear Calc Drug Dose 86.5 ml/min Estimated GFR () 87.8 Estimated GFR (Non- 75.8 BUN/Creatinine Ratio 9.8 (10-20) Calcium Level 8.9 mg/dl (8.5-10.1) Total Bilirubin 1.2 mg/dl (0.2-1) Aspartate Amino Transf (AST/SGOT) 35 U/L (15-37) Alanine Aminotransferase (ALT/SGPT) 40 U/L (12-78) Alkaline Phosphatase 86 U/L (45-117) Total Creatine Kinase 148 U/L (39-308) Creatine Kinase MB 1.4 ng/ml (0.5-3.6) Creatine Kinase MB Ratio 0.9 (0-3.0) Total Protein 7.6 gm/dl (6.4-8.2) Albumin 3.7 gm/dl (3.4-5.0) Globulin 3.9 gm/dl (2.5-4.0) Albumin/Globulin Ratio 0.9 (0.9-2) Medications Administered Medications (Trade) Dose Ordered Sig/Jodi Route Start Time Stop Time Status Last Admin Dose Admin Albuterol/ Ipratropium 3 ml 3 ml NOW STAT INH 07/02/16 15:19 07/02/16 15:22 DC 07/02/16 15:33 3 ML Sodium Chloride (Nss 1000ml) 1,000 ml @ 150 mls/hr Q6H40M STAT IV 07/02/16 15:19 07/02/16 21:58 07/02/16 15:19 150 MLS/HR Departure Information Referrals RV. Quiroga MD (PCP) Patient Instructions [facility]
[2016-07-02] MEDS ORDERED: ATOR-26 PO (16:19)
[2016-07-02 16:31] VITALS: BP 114/52; PULSE 61; O2SAT 95
--- NOTE | 2016-07-03 00:48 | EMERGENCY ROOM VISIT NOTE ---
ED Visit Note First contact with patient: 15:02 Chief Complaint: Shortness of breath. History of Present Illness: Mr. Garibay is a 71-year-old white male who is brought into the ED via ambulance complaining of shortness of breath. Historically patient reports she has a history of coronary artery disease and is status post angioplasties and stent placement, congestive heart failure, diabetes, dyslipidemia. Patient reports he has been having sensations of shortness of breath for over a month and has had a continuous nonproductive cough. He has been seen by a convention services manager, record changer tester and his family physician and no cause has been found for his shortness of breath. On his last visit with his family physician on June 23 he was prescribed Isosorbide Mononitrate 30 mg. he reports he took his first dose on June 24 and he "felt goofy"; I did ask him what goofy felt like and he reported that he was more short of breath. So he stopped this medication, but he reports today he felt like his shortness of breath was worsening so he restarted the Isosorbide and then approximately half an hour after he took the medication, 4 hours ago, he developed left sternal border chest pain and worsening shortness of breath. After his symptoms would not resolve 911 was activated and he was brought into the ED for further evaluation and care. During transport patient received nitroglycerin for his chest discomfort and was placed on oxygen. EMS reports patient was stable and had no acute changes en route. On patient's initial nursing encounter he was complaining of chest pain but on my first encounter his only complaint was shortness of breath and he reported resolution of chest pain. He placed the chest discomfort over the left sternal border. He describes it as an achy sensation. He rated his discomfort 3/10. The pain was nonradiating. He has not identified any aggravating or alleviating factors related to the pain. He denied any associated symptoms except for the constant shortness of breath that he had. He reports 5 minutes after receiving the nitroglycerin and started on oxygen he was pain and symptom-free. Currently he is not having any symptoms and denies any fevers, chills, sweats, skin eruptions, skin color changes, headache, dizziness, lightheadedness, nasal congestion, sinus congestion, chest congestion, hemoptysis, wheezing, palpitations, orthopnea, dependent edema, previous clots, claudication, cramping , recent surgery/inactivity/extended travel, abdominal pain, nausea, vomiting, bloody stools, bloody urine. Review of Systems: As noted above in history of present illness. All body systems were reviewed and found to be negative as noted above. Past Medical History: As previously noted, diabetic neuropathy, cellulitis, hypertension, mild COPD, sleep apnea, lung nodule, anemia, depression, GERD, obesity, osteoarthritis. Current Medications: Medications Dose Route/Sig Max Daily Dose Days Date Category Dose Instructions Vitamin D3 (Cholecalciferol) 1,000 Unit Cap 1,000 Inter.unit PO DAILY 07/02/16 Reported TAKE THIS MEDICATION ONCE DAILY WITH THE BIGGEST MEAL OF THE DAY Novolin 70/30 (Insulin Human Isoph/Insulin Regular) Susp 45 Units SC QPM 07/02/16 Reported Novolin 70/30 (Insulin Human Isoph/Insulin Regular) Susp 25 Units SC QAM 07/02/16 Reported Colace (Docusate Sodium) 100 Mg Cap 100 Mg PO DAILY PRN 07/02/16 Reported One Daily Mens (Multiple Vitamins W/ Minerals) 1 Tab Tab 1 Tab PO DAILY 07/02/16 Reported Potassium Chloride Er (Potassium Chloride Microencaps) 10 Meq Tab 10 Meq PO DAILY 07/02/16 Reported Meclizine HCl 25 Mg Tab 25 Mg PO DAILY PRN 07/02/16 Reported Lisinopril 20 Mg Tab 20 Mg PO BID 07/02/16 Reported Pantoprazole Sodium (Pantoprazole) 40 Mg Tab 40 Mg PO BID 07/02/16 Reported TAKE 1 TABLET TWICE DAILY 30 MINUTES BEFORE BREAKFAST AND EVENING MEAL Imdur Ext Rel (Isosorbide Mononitrate) 30 Mg Tabcr 30 Mg PO DAILY 07/02/16 Reported Symbicort 160/4.5 Inhaler (Budesonide/Formoterol Fumarate) Aero 2 Puffs INH BID 05/24/16 Reported RINSE MOUTH AFTER USE Vitamin B-12 (Cyanocobalamin) 1,000 Mcg Sub 1,000 Mcg SL DAILY 12/30/15 Reported Percocet 5MG/325MG (Oxycodone/Acetaminophen) Tab 1 Tab PO Q8 PRN 10/06/15 Reported PAIN Coreg (Carvedilol) 25 Mg Tab 25 Mg PO BID 09/16/15 Reported Cinnamon 500 Mg Tab 500 Mg PO DAILY 05/22/15 Reported Lipitor (Atorvastatin Calcium) 80 Mg Tab 80 Mg PO HS 11/06/13 Reported Zantac (Ranitidine Hcl) 300 Mg Tab 300 Mg PO HS 10/19/13 Reported Glucophage (Metformin Hcl) 1,000 Mg Tab 1,000 Mg PO BID 10/19/13 Reported Nitrostat (Nitroglycerin) 0.4 Mg Sub 0.4 Mg UT UD PRN 10/19/[address] ONE TABLET UNDER THE TONGUE EVERY 5 MINUTES FOR UP TO 3 DOSES IF NEEDED FOR CHEST PAIN Lasix (Furosemide) 40 Mg Tab 80 Mg PO QAM 10/19/13 Reported Aspirin Ec (Aspirin) 81 Mg Tab 81 Mg PO QAM 10/19/13 Reported Allergies to Medications: Clindamycin. Social History: Patient is currently retired; he feels safe in his home environment; former smoker. Physical Examination: Vital Signs: Date Time Temp Pulse Resp B/P Pulse Ox O2 Delivery O2 Flow Rate FiO2 07/02/16 16:31 61 18 114/52 95 Room Air 07/02/16 15:51 59 18 128/45 100 Room Air 07/02/16 15:13 61 18 117/51 95 Room Air 07/02/16 14:30 61 18 122/54 98 Room Air 07/02/16 14:14 97 Room Air 07/02/16 14:12 68 07/02/16 14:04 36.6 66 16 131/65 97 Room Air GENERAL: 71-year-old male in no acute distress, nontoxic-appearing, afebrile and hemodynamically stable. NEUROLOGICAL: Awake, alert and oriented to person, place and time. Answering questions appropriately and following commands. Normal gait. Good hand eye coordination. No focal motor sensory deficits. SKIN: Warm, dry and pink. No soft tissue eruptions or trauma noted. HEENT: Atraumatic and normocephalic. PERRL. Sclera white and conjunctiva pink. No drainage from naris. Oral cavity moist and pink. Pharynx is nonerythematous or edematous. Speech normal. No lymphadenopathy. Trachea midline. No jugular venous distention. BACK: No tenderness over the bony spine. No CVA tenderness. THORAX: Lungs sounds are clear to auscultation and equal bilaterally with symmetrical chest wall. Air movement is decreased in the bases bilaterally. No wheezing, rales or rhonchi. No crepitus, tenderness, subcutaneous air or deformities noted. No increased respiratory effort or rate. HEART: Regular rate and rhythm. No gallops, rubs or murmurs are appreciated. PMI is not displaced. No lifts, heaves or thrills. ABDOMEN: Flat, soft and nontender. Positive bowel sounds in all quadrants. No guarding, rigidity or organomegaly. EXTREMITIES: Moves all extremities well on command and with purpose. All distal neurovascular statuses are intact and equal bilaterally. No calf tenderness or cords. No dependent edema. ED Course: Patient is assessed as noted above. Laboratory Testing: Test 07/02/16 13:45 Range/Units White Blood Count 5.55 4.8-10.8 K/uL Red Blood Count 4.05 4.7-6.1 M/uL Hemoglobin 11.3 14.0-18.0 g/dL Hematocrit 34.8 42-52 % Mean Corpuscular Volume 85.9 80-100 fL Mean Corpuscular Hemoglobin 27.9 25-34 pg Mean Corpuscular Hemoglobin Concent 32.5 32-36 g/dl Platelet Count 176 130-400 K/uL Mean Platelet Volume 10.7 7.4-10.4 fL Neutrophils (%) (Auto) 48.5 % Lymphocytes (%) (Auto) 40.9 % Monocytes (%) (Auto) 8.6 % Eosinophils (%) (Auto) 1.4 % Basophils (%) (Auto) 0.2 % Neutrophils # (Auto) 2.69 1.4-6.5 K/uL Lymphocytes # (Auto) 2.27 1.2-3.4 K/uL Monocytes # (Auto) 0.48 0.11-0.59 K/uL Eosinophils # (Auto) 0.08 0-0.5 K/uL Basophils # (Auto) 0.01 0-0.2 K/uL RDW Standard Deviation 42.6 36.4-46.3 fL RDW Coefficient of Variation 13.5 11.5-14.5 % Immature Granulocyte % (Auto) 0.4 % Immature Granulocyte # (Auto) 0.02 0.00-0.02 K/uL Sodium Level 141 136-145 mmol/L Potassium Level 4.2 3.5-5.1 mmol/L Chloride Level 103 98-107 mmol/L Carbon Dioxide Level 28 21-32 mmol/L Anion Gap 10.0 3-11 mmol/L Blood Urea Nitrogen 10 7-18 mg/dl Creatinine 0.99 0.60-1.40 mg/dl Est Creatinine Clear Calc Drug Dose 86.5 ml/min Estimated GFR () 87.8 Estimated GFR (Non- 75.8 BUN/Creatinine Ratio 9.8 10-20 Random Glucose 204 70-99 mg/dl Calcium Level 8.9 8.5-10.1 mg/dl Total Bilirubin 1.2 0.2-1 mg/dl Aspartate Amino Transf (AST/SGOT) 35 15-37 U/L Alanine Aminotransferase (ALT/SGPT) 40 12-78 U/L Alkaline Phosphatase 86 45-117 U/L Total Creatine Kinase 148 39-308 U/L Creatine Kinase MB 1.4 0.5-3.6 ng/ml Creatine Kinase MB Ratio 0.9 0-3.0 Total Protein 7.6 6.4-8.2 gm/dl Albumin 3.7 3.4-5.0 gm/dl Globulin 3.9 2.5-4.0 gm/dl Albumin/Globulin Ratio 0.9 0.9-2 Chest X-Rays: Were read by myself and radiologist showing no acute infiltrates, effusions or pneumothorax. Normal heart silhouette and bony abnormalities. This was compared to previous and no acute changes were noted. EKG: Was read by myself and reviewed with Dr. Lozano; shows normal sinus rhythm with ventricular rate of 63 bpm. Normal axis, intervals and complexes. No acute ST changes indicating ischemia, injury or infarction. Previous were compared and no acute changes were noted. Patient was hydrated with normal saline, he received an albuterol/Atrovent nebulizer breathing treatment. Reassessment after breathing treatment patient reports he was feeling no different; reevaluation the lungs remained clear to auscultation and equal bilaterally with improved air movement in the bases. Patient's case was reviewed with Dr. Lozano; he independently assessed the patient and we agreed on diagnostic approach, treatment, disposition and plan. Patient was educated about tonight's findings and instructed on his treatment plan; he verbalizes understanding and agreement with this plan. Clinical Impression: Shortness of breath. Chest pain. Decision-Making: Initially my differential diagnosis I considered pulmonary embolism, acute coronary syndrome, thoracic aneurysm, pneumothorax, COPD exacerbation and other causes. Disposition: Patient discharged home in stable condition; prior to departure he was reassessed and subjectively reported he was pain-free and had no shortness of breath. Plan: Patient was encouraged to hold his Isosorbide until he was able to top in his PCP is concerning symptoms. Patient was encouraged to continue his other medications. Patient was encouraged to follow-up with his PCP on Sunday with at least a phone call if not an office visit. Patient was encouraged return the ED for worsening shortness of breath, reports a worsening chest discomfort, fevers, cough, coughing up blood or any new/ concerning symptoms.
== END 2016-07-02 16:52 | disposition home or self-care (01) ==
LOC: EDBD 14:04 → C.EDA 14:04
DX: R06.02 Shortness of breath (principal); R07.9 Chest pain, unspecified; I10 Essential (primary) hypertension; G47.30 Sleep apnea, unspecified; F32.9 Major depressive disorder, single episode, unspecified; K21.9 Gastro-esophageal reflux disease without esophagitis; E78.5 Hyperlipidemia, unspecified; I25.10 Atherosclerotic heart disease of native coronary artery without angina pectoris; E11.9 Type 2 diabetes mellitus without complications; Z79.4 Long term (current) use of insulin

== ENCOUNTER → 2016-07-19 | Outpatient (CLI) | payer OTHER ==
[~2016-07-19] MED LIST changes: -AMLO-110 PO; +ANT25 PO; +ATOR-26 PO; -CHOL100010 PO; +CHOL1CAP57 PO; +CYAN100048 SL; +DOCU-94 PO; +ISOS30TA35 PO; -LISI40TA PO; +LSN20 PO; +MULT-106 PO; -MULT-506 PO; -PANT40TA PO; -POTA-331 PO; +POTA10TA32 PO; +PRT/40 PO; +SYMIN160 INH
--- NOTE | 2016-07-19 12:10 | DIAGNOSTIC IMAGING REPORT ---
EXAMINATION: RENAL ULTRASOUND CLINICAL HISTORY: Renal mass COMPARISON STUDY: MRI the liver dated 06/09/2016 FINDINGS: The right kidney measures 11.7 cm. The left kidney measures 12.7 cm. There is no evidence of hydronephrosis. There is a 15 mm hypoechoic lesion within the left kidney likely representing a complex cyst. No bladder abnormalities are visualized. Bilateral ureteral jets were visualized. There is increased hepatic echogenicity. IMPRESSION : 15 mm hypoechoic lesion within the left kidney, likely representing a complex renal cyst. Electronically signed by: Rodney Bower M.D. 07/19/2016 12:09 PM Dictated Date/Time: 07/19/2016 12:07 PM
== END | disposition home or self-care (01) ==
LOC: C.ULTR 11:33
PROVIDERS: ATTEND Internal Medicine
DX: N28.9 Disorder of kidney and ureter, unspecified (principal)

== ENCOUNTER → 2016-07-27 | Outpatient (CLI) | payer OTHER ==
[~2016-07-27] MED LIST changes: +PERFLUTREN LIPID MICROSPHERE (DEFINITY) IV ONE
--- NOTE | 2016-07-27 15:00 | ECHOCARDIOGRAM REPORT ---
*NOTICE TO RECEIVING LIBERTARIAN AGENCY This information is strictly Confidential and protected under [place] law. [place] law prohibits you from making any further disclosure of this information unless further disclosure is expressly permitted by the written consent of the person to whom it pertains or is authorized by law. A general authorization for the release of medical or other information is not sufficient for this purpose. Hospital accepts no responsibility if the information is made available to any other person, INCLUDING THE PATIENT. Interpretation Summary * Name: CALLIE HDZ Study Date: 07/27/2016 01:45 PM BP: 176/63 mmHg * Patient Location: [facility] HR: 67 * : 1945 (M/d/yyy) Gender: Male Height: 70 in * Age: 71 yrs Ethnicity: [place] Weight: 250 lb * Ordering Physician: Rikki Vegas * Referring Physician: Rikki Vegas D.O. Pulmonary * Performed By: Rohini Floyd RDCS * * Reason For Study: SOB, BUBBLE STUDY FOR HEPATOPULMONARY SHUNT * BSA: 2.3 m2 * History: SHORTNESS OF BREATH * -- Conclusions -- * Left ventricular systolic function is normal. * No regional wall motion abnormalities noted. * Ejection Fraction = 60-65%. * There is moderate asymmetric left ventricular hypertrophy. * Grade I diastolic dysfunction, (abnormal relaxation pattern). * Bubble study inadequate to assess for a patent foramen ovale or hepatopulmonary shunting. Procedure Details * A saline contrast injection was performed to assess for cardiac shunting. * The injection was performed through an intravenous line in the left arm. * The attending nurse who injected the saline contrast was LAUREEN ÁLVAREZ RN. * A total of 20 cc of agitated saline was given. * A contrast injection of Definity was performed to improve assessment of LV function. * Contrast was injected into an intravenous site in the left arm. * One vial of Definity ultrasound contrast was diluted in normal saline to a total volume of 10 ml. A total of '2' ml of solution was administered during imaging. * Lot # [id number] of Definity utilized for procedure. * Expiration date 1 JUL 08. * The attending nurse who injected the contrast agent was LAUREEN ÁLVAREZ RN. Left Ventricle * The left ventricle is normal in size. * There is moderate asymmetric left ventricular hypertrophy. * Ejection Fraction = 60-65%. * Left ventricular systolic function is normal. * No regional wall motion abnormalities noted. Right Ventricle * The right ventricle is not well visualized. * The right ventricular systolic function is normal as assessed by tricuspid annular plane systolic excursion (TAPSE) (normal >1.5 cm). Atria * The left atrium is mildly dilated. * The right atrium is mildly dilated. * There is no evidence of atrial septal defect, but resolution does not allow assessment for a patent foramen ovale. * Bubble study inadequate to assess for a patent foramen ovale or hepatopulmonary shunting. Mitral Valve * The mitral valve is grossly normal. * Significant mitral regurgitation is absent. Tricuspid Valve * The tricuspid valve is not well visualized. Aortic Valve * The aortic valve is not well visualized. * The aortic valve opens well. * Aortic stenosis is absent. * There is no significant aortic regurgitation. Pulmonic Valve * The pulmonary valve is not well seen, but the Doppler examination is normal without significant regurgitation or stenosis. Great Vessels * Borderline aortic root dilatation. * The pulmonary is not well visualized. Pericardium/Pleural * There is no pericardial effusion. Great Vessels * IVC not well seen. Left Ventricular Diastolic Function * Grade I diastolic dysfunction, (abnormal relaxation pattern). MMode 2D Measurements and Calculations IVSd 1.3 cm IVSs 2.0 cm LVIDd 4.2 cm LVIDs 2.8 cm LVPWd 1.3 cm LVPWs 1.9 cm IVS/LVPW 1.0 FS 32.7 % EDV(Teich) 77.2 ml ESV(Teich) 29.7 ml EF(Teich) 61.6 % EDV(cubed) 72.4 ml ESV(cubed) 22.1 ml EF(cubed) 69.5 % % IVS thick 52.0 % % LVPW thick 49.4 % LV mass(C)d 202.8 grams LV mass(C)dI 88.4 grams/m\S\2 LV mass(C)s 241.8 grams LV mass(C)sI 105.4 grams/m\S\2 SV(Teich) 47.5 ml SI(Teich) 20.7 ml/m\S\2 SV(cubed) 50.4 ml SI(cubed) 22.0 ml/m\S\2 Ao root diam 3.6 cm Ao root area 10.2 cm\S\2 LA dimension 3.6 cm LA/Ao 10 LVAd ap4 34.4 cm\S\2 LVLd ap4 9.2 cm EDV(MOD-sp4) 103.3 ml EDV(sp4-el) 109.0 ml LVAs ap4 17.7 cm\S\2 LVLs ap4 7.8 cm ESV(MOD-sp4) 33.4 ml ESV(sp4-el) 34.1 ml EF(MOD-sp4) 67.6 % EF(sp4-el) 68.7 % SV(MOD-sp4) 69.9 ml SI(MOD-sp4) 30.4 ml/m\S\2 SV(sp4-el) 74.8 ml SI(sp4-el) 32.6 ml/m\S\2 Doppler Measurements and Calculations MV E max dorie 72.3 cm/sec MV A max dorie 84.9 cm/sec MV E/A 0.85 MV dec time 0.28 sec Ao V2 max 224.8 cm/sec Ao max PG 20.2 mmHg Ao max PG (full) 14.9 mmHg Ao V2 mean 154.0 cm/sec Ao mean PG 10.8 mmHg Ao mean PG (full) 7.6 mmHg Ao V2 VTI 52.6 cm LV V1 max PG 5.3 mmHg LV V1 mean PG 3.2 mmHg LV V1 max 115.4 cm/sec LV V1 mean 85.1 cm/sec LV V1 VTI 27.6 cm SV(Ao) 535.6 ml SI(Ao) 233.4 ml/m\S\2
== END | disposition home or self-care (01) ==
LOC: C.CPL 13:37
PROVIDERS: ATTEND Internal Medicine Pulmonary Disease
DX: R06.02 Shortness of breath (principal)

== ENCOUNTER → 2016-08-18 | Outpatient (CLI) | payer OTHER ==
[~2016-08-18] MED LIST changes: +PANT40TA2 PO; -PERFLUTREN LIPID MICROSPHERE (DEFINITY) IV ONE; -PRT/40 PO
--- NOTE | 2016-08-18 15:52 | DIAGNOSTIC IMAGING REPORT ---
RIGHT SHOULDER MIN 2 VIEWS ROUTINE CLINICAL HISTORY: Right shoulder pain. COMPARISON: None FINDINGS: Alignment of the right shoulder is anatomic. There is no acute fracture or suspicious lesion. There is mild glenohumeral joint arthritis and moderate acromioclavicular joint arthritis. There is mild irregularity greater tuberosity. There may be minimal calcific tendinitis of the rotator cuff. IMPRESSION: 1. No acute fracture or dislocation of the right shoulder. 2. Mild right glenohumeral joint osteophytosis and moderate to severe acromioclavicular joint arthritis. 3. Possible minimal calcific tendinitis of the right rotator cuff. Electronically signed by: Xavi Melissa M.D. 08/18/2016 3:50 PM Dictated Date/Time: 08/18/2016 3:49 PM
== END | disposition home or self-care (01) ==
LOC: C.RAD1850 15:18
PROVIDERS: ATTEND Internal Medicine
DX: M25.511 Pain in right shoulder (principal)

== ENCOUNTER → 2016-09-01 | Outpatient (CLI) | payer OTHER ==
--- NOTE | 2016-09-01 09:47 | DIAGNOSTIC IMAGING REPORT ---
ABDOMINAL ULTRASOUND CLINICAL HISTORY: Left abdominal lump. COMPARISON STUDY: CT of the abdomen and pelvis January 01, 2016. FINDINGS: Sonography of the left anterior abdominal wall revealed a subtle 2.7 x 1.9 x 1.7 cm mixed echogenicity subcutaneous focus. This contains no color flow. This is nonspecific. No hernia was identified by sonography. IMPRESSION: Subtle 2.7 x 1.9 x 1.7 cm hypoechoic focus within the subcutaneous tissues of the left anterior abdominal wall, at site of recent surgery. This is nonspecific and could reflect scar. No definite mass identified although clinical follow-up to ensure stability is recommended. No hernia identified. Electronically signed by: Xavi Melissa M.D. 09/01/2016 9:45 AM Dictated Date/Time: 09/01/2016 9:42 AM
== END | disposition home or self-care (01) ==
LOC: C.ULTRBC 09:09
PROVIDERS: ATTEND Internal Medicine
DX: R06.09 Other forms of dyspnea (principal); R22.2 Localized swelling, mass and lump, trunk

== ENCOUNTER → 2016-11-16 | Outpatient (CLI) | payer OTHER ==
[~2016-11-16] MED LIST changes: -PANT40TA2 PO; +PRT/40 PO
[2016-11-16 12:48] LABS: ESTIMATED AVERAGE GLUCOSE 154 mg/dl; HA1C FLAG Normal (Normal)
== END | disposition home or self-care (01) ==
LOC: C.LAB1850 10:51
PROVIDERS: ATTEND Nurse Practitioner Family
DX: E11.65 Type 2 diabetes mellitus with hyperglycemia (principal)

== ENCOUNTER → 2016-11-23 | Outpatient (CLI) | payer OTHER ==
--- NOTE | 2016-11-23 11:42 | DIAGNOSTIC IMAGING REPORT ---
RIGHT FOOT 2 VIEWS HISTORY:71 [id number] Diabetic peripheral [id number] Injury of great to Right COMPARISON: None available. TECHNIQUE: Frontal and lateral views of the right foot. FINDINGS: Moderate degenerative changes are present about the first metatarsal-phalangeal joint. Midfoot alignment is anatomic on this nonweightbearing exam. There is a moderate amount of soft tissue swelling within the great toe with a comminuted fracture involving the first proximal phalanx extending into the articular surface. There is no significant displacement. Areas of subcortical lucency are present within this distribution with periarticular densities. There is background mild bony demineralization. No additional acute fracture or dislocation is identified. There is prominent spurring throughout the midfoot and hindfoot with pes planus deformity. Large enthesophytes are present involving both the Achilles and plantar insertion sites about the calcaneus. IMPRESSION: 1. Comminuted intra-articular fracture of the first proximal phalanx with moderate degree of surrounding soft tissue swelling. Areas of cortical lucency also seen adjacent to the fracture site. Follow-up imaging to exclude pathologic fracture recommended. 2. Large osteophytes involve the Achilles and plantar insertion sites about the calcaneus. The above report was generated using voice recognition software. It may contain grammatical, syntax or spelling errors. Electronically signed by: Doug Castillo 11/23/2016 11:40 AM Dictated Date/Time: 11/23/2016 11:32 AM
== END | disposition home or self-care (01) ==
LOC: C.RAD1850 11:20
PROVIDERS: ATTEND Nurse Practitioner Family
DX: S92.424A Nondisplaced fracture of distal phalanx of right great toe, initial encounter for closed fracture (principal); X58.XXXA Exposure to other specified factors, initial encounter; E11.42 Type 2 diabetes mellitus with diabetic polyneuropathy

== ENCOUNTER → 2016-12-26 | Outpatient (CLI) | payer OTHER ==
[2016-12-26 18:23] LABS: BLOOD UREA NITROGEN 12 mg/dl (7-18); BUN/CREATININE RATIO 10.6 (10-20); CALCIUM 9.4 mg/dl (8.5-10.1); CARBON DIOXIDE 33 mmol/L (21-32); CHLORIDE 102 mmol/L (98-107); GLUCOSE 106 mg/dl (70-99); POTASSIUM 4.6 mmol/L (3.5-5.1); SODIUM 140 mmol/L (136-145)
== END | disposition home or self-care (01) ==
LOC: C.LABPBG 14:09
PROVIDERS: ATTEND Internal Medicine Interventional Cardiology
DX: I10 Essential (primary) hypertension (principal)

== ENCOUNTER → 2017-01-01 | Outpatient (CLI) | payer OTHER ==
--- NOTE | 2017-01-01 12:05 | DIAGNOSTIC IMAGING REPORT ---
FOOT 2 VIEWS CLINICAL HISTORY: NEUROPATHY; AP/LAT WEIGHT BEARING COMPARISON: 11/23/2016 DISCUSSION: Fracture of the proximal phalanx of the great toe unchanged in overall configuration. Fracture line is improved in visibility. There is been no significant interval healing. Reactive osteophytic change at the base of the proximal phalanx is somewhat progressive. This may also indicate reactive callus formation. There is no evidence of dislocation. Heel spur is present. Findings suggest an early neuropathic joint is again noted. IMPRESSION: 1. No significant healing and or early nonunion of a fracture proximal phalanx great toe. 2. Probably early neuropathic type joint 3. Heel spur 4. No evidence for bony destructive process at the current time The above report was generated using voice recognition software. It may contain grammatical, syntax or spelling errors. Electronically signed by: Kerwin Arriaga M.D. 01/01/2017 12:03 PM Dictated Date/Time: 01/01/2017 12:00 PM
== END | disposition home or self-care (01) ==
LOC: C.RAD 11:33
PROVIDERS: ATTEND Internal Medicine Endocrinology, Diabetes & Metabolism
DX: G62.9 Polyneuropathy, unspecified (principal); M77.31 Calcaneal spur, right foot

== ENCOUNTER → 2017-01-11 | Outpatient (CLI) | payer OTHER ==
--- NOTE | 2017-01-11 15:48 | DIAGNOSTIC IMAGING REPORT ---
RIGHT FIRST TOE MRI HISTORY: Right toe fracture. TECHNIQUE: Multiplanar multisequence MRI of the right toe was performed without the use of intravenous contrast. COMPARISON STUDY: Right toe radiograph 01/01/2017. FINDINGS: There is again noted a comminuted fracture at the head of the proximal phalanx of the first toe. This is slightly impacted and demonstrates mild dorsal angulation/displacement. The dorsal displacement measures up to 2 mm. There is marrow edema throughout the majority of the fractured proximal phalanx. There is also mild soft tissue edema surrounding the proximal phalanx of the first toe. The distal phalanx is intact. Flexor and extensor tendons are maintained. Evaluation for osteomyelitis is severely compromised due to the fracture. Mild to moderate osteoarthritis at the first MTP joint. IMPRESSION: 1. No significant change in the slightly displaced/impacted fracture at the head of the proximal pharynx of the first toe. Evaluation for healing would be better appreciated on a follow-up radiograph or CT. 2. Marrow edema within the fractured proximal phalanx of the first toe as well surrounding soft tissue edema. Electronically signed by: Tristin Martell M.D. 01/11/2017 3:46 PM Dictated Date/Time: 01/11/2017 3:40 PM
== END | disposition home or self-care (01) ==
LOC: C.MRI 13:34
PROVIDERS: ATTEND Internal Medicine Endocrinology, Diabetes & Metabolism
DX: S92.411A Displaced fracture of proximal phalanx of right great toe, initial encounter for closed fracture (principal); X58.XXXA Exposure to other specified factors, initial encounter

== ENCOUNTER → 2017-01-16 | Outpatient (CLI) | payer OTHER ==
--- NOTE | 2017-01-16 19:33 | DIAGNOSTIC IMAGING REPORT ---
MRI OF THE RIGHT FOOT WITHOUT CONTRAST CLINICAL HISTORY: Diabetic peripheral neuropathy. Fracture of right great toe. Evaluate for Charcot fracture. COMPARISON STUDY: Right foot radiographs January 01, 2017 and MRI of the right foot January 11, 2017. TECHNIQUE: Utilizing a 1.5 Liz magnet, multiplanar, multi echo imaging of the entire right foot was performed without intravenous contrast. FINDINGS: Marked marrow edema is noted within the head of the proximal phalanx of the right first toe with associated fragmentation. This reflects a healing fracture. Adjacent edema is noted. The appearance is similar to MRI of January 11, 2017. Sensitivity for detection of osteomyelitis at this site is diminished given the fracture. No additional sites of marrow edema are identified within the right ankle or foot. Talar dome is intact. Alignment of the tarsometatarsal joints is anatomic. There is no MRI evidence for a Charcot arthropathy. Flexor, extensor and peroneal tendons are intact. No suspicious marrow replacement is present. No fluid collection is identified to suggest an abscess. Note is made of moderate osteoarthritis of the right first metatarsophalangeal joint. IMPRESSION: 1. No change in the displaced impacted fracture of the head of the proximal phalanx of the right first toe. Fracture healing difficult to assess by MRI but likely less than expected when correlating with prior radiographs. Radiographic follow-up could be obtained to assess healing. 2. No additional sites of marrow edema within the right ankle or foot. No evidence for a Charcot arthropathy within the remainder of the right foot and ankle. Electronically signed by: Xavi Melissa M.D. 01/16/2017 7:32 PM Dictated Date/Time: 01/16/2017 6:54 PM
== END | disposition home or self-care (01) ==
LOC: C.MRI 17:20
PROVIDERS: ATTEND Internal Medicine Endocrinology, Diabetes & Metabolism
DX: E11.42 Type 2 diabetes mellitus with diabetic polyneuropathy (principal); S99.929A Unspecified injury of unspecified foot, initial encounter; S92.401A Displaced unspecified fracture of right great toe, initial encounter for closed fracture; X58.XXXA Exposure to other specified factors, initial encounter

== ENCOUNTER → 2017-04-11 | Outpatient (CLI) | payer OTHER ==
[~2017-04-11] MED LIST changes: +PANT40TA2 PO; -PRT/40 PO
[2017-04-11 12:59] LABS: BLOOD UREA NITROGEN 11 mg/dl (7-18); CREATININE 1.09 mg/dl (0.60-1.40)
== END | disposition home or self-care (01) ==
LOC: C.LABPBG 10:37
PROVIDERS: ATTEND Internal Medicine Hematology & Oncology
DX: R18.0 Malignant ascites (principal); R16.0 Hepatomegaly, not elsewhere classified

== ENCOUNTER → 2017-04-20 | Outpatient (CLI) | payer OTHER ==
[2017-04-20 16:11] LABS: BENZODIAZEPINE, URINE NEG (NEG); COCAINE,URINE NEG (NEG); PHENCYCLIDINE, URINE NEG (NEG)
== END | disposition home or self-care (01) ==
LOC: C.LAB 15:11
PROVIDERS: ATTEND Internal Medicine
DX: G89.29 Other chronic pain (principal)

== ENCOUNTER → 2017-05-01 | Outpatient (CLI) | payer OTHER ==
[2017-05-01 11:55] LABS: BASO % 0.5 %; BASO ABS # 0.03 K/uL (0-0.2); COMPLETE YES; EOS % 1.8 %; HEMATOCRIT 34.9 % (42-52); IG% 0.5 %; LYMPH ABS # 2.52 K/uL (1.2-3.4); MEAN CELL VOLUME 85.5 fL (80-100); MEAN CORPUSCULAR HEMOGLOBIN 28.4 pg (25-34); MEAN CORPUSCULAR HGB CONC 33.2 g/dl (32-36); MEAN PLATELET VOLUME 10.3 fL (7.4-10.4); MONO % 8.3 %; NEUT % 46.9 %; PLATELET COUNT 184 K/uL (130-400); RED BLOOD COUNT 4.08 M/uL (4.7-6.1)
[2017-05-01 12:14] LABS: CHOLESTEROL/HDL RATIO 3.4; ESTIMATED AVERAGE GLUCOSE 160 mg/dl; HA1C FLAG Normal (Normal); THYROID STIMULATING HORMONE 3.48 uIu/ml (0.300-4.500)
== END | disposition home or self-care (01) ==
LOC: C.LABPBG 10:13
PROVIDERS: ATTEND Internal Medicine
DX: E11.9 Type 2 diabetes mellitus without complications (principal); I10 Essential (primary) hypertension; E03.9 Hypothyroidism, unspecified; E53.8 Deficiency of other specified B group vitamins; E55.9 Vitamin D deficiency, unspecified

== ENCOUNTER → 2017-05-28 | Outpatient (CLI) | payer OTHER ==
[2017-05-28 17:58] LABS: BASO % 0.2 %; BASO ABS # 0.03 K/uL (0-0.2); EOS % 0.3 %; EOS ABS # 0.04 K/uL (0-0.5); HEMATOCRIT 32.1 % (42-52); HEMOGLOBIN 10.5 g/dL (14.0-18.0); IG# 0.07 K/uL (0.00-0.02); LYMPH % 20.7 %; LYMPH ABS # 3.18 K/uL (1.2-3.4); MEAN CELL VOLUME 85.1 fL (80-100); MEAN CORPUSCULAR HEMOGLOBIN 27.9 pg (25-34); MEAN CORPUSCULAR HGB CONC 32.7 g/dl (32-36); MEAN PLATELET VOLUME 9.9 fL (7.4-10.4); MONO % 10.3 %; MONO ABS # 1.58 K/uL (0.11-0.59); NEUT ABS # 10.44 K/uL (1.4-6.5); PLATELET COUNT 264 K/uL (130-400); RED CELL DISTRIBUTION WIDTH CV 13.6 % (11.5-14.5); RED CELL DISTRIBUTION WIDTH SD 42.2 fL (36.4-46.3); WHITE BLOOD COUNT 15.34 K/uL (4.8-10.8)
== END | disposition home or self-care (01) ==
LOC: C.LAB 17:25
PROVIDERS: ATTEND Internal Medicine
DX: N41.0 Acute prostatitis (principal); R50.9 Fever, unspecified

== ENCOUNTER → 2017-08-15 | Outpatient (CLI) | payer OTHER ==
[2017-08-15 15:36] LABS: HEMOGLOBIN A1C 7.1 % (4.5-5.6)
[2017-08-15 17:30] LABS: CREATININE RANDOM URINE 37.7 mg/dl
== END | disposition home or self-care (01) ==
LOC: C.LABPBG 09:44
PROVIDERS: ATTEND Nurse Practitioner Family
DX: E11.9 Type 2 diabetes mellitus without complications (principal)

== ENCOUNTER → 2017-12-20 | Outpatient (CLI) | payer OTHER ==
[~2017-12-20] MED LIST changes: +CEPH500C2 PO; +HYDR-5688 PO; +LISI-726 PO; -LSN20 PO
[2017-12-20 12:44] LABS: BLOOD UREA NITROGEN 13 mg/dl (7-18); CALCIUM 9.2 mg/dl (8.5-10.1); CARBON DIOXIDE 28 mmol/L (21-32); CREATININE 1.22 mg/dl (0.60-1.40); GLUCOSE 213 mg/dl (70-99); SODIUM 135 mmol/L (136-145)
== END | disposition home or self-care (01) ==
LOC: C.LAB1850 11:23
PROVIDERS: ATTEND Internal Medicine Interventional Cardiology
DX: I50.30 Unspecified diastolic (congestive) heart failure (principal)

== ENCOUNTER 2017-12-25 14:31 | Emergency (ER) | payer OTHER ==
[~2017-12-25] VITALS: Ht 177.8 cm; Wt 117.0 kg
[~2017-12-25 14:31] MED LIST changes: -CEPH500C2 PO; -HYDR-5688 PO
[2017-12-25 14:39] VITALS: TEMP 36.7; Ht 177.8 cm; Wt 117.0 kg
--- NOTE | 2017-12-25 15:54 | EMERGENCY ROOM VISIT NOTE ---
ED Visit Note First contact with patient: 14:44 This Patient was discussed with the physician evaluation assistant, Lakisha Arriaga PA-C. The pertinent historical and physical exam findings were confirmed. I agree with the studies ordered and with the interpretations of these studies. I agree with the disposition and care plan.
[2017-12-25 16:08] LABS: BASO % 0.2 %; BASO ABS # 0.01 K/uL (0-0.2); EOS % 1.3 %; EOS ABS # 0.07 K/uL (0-0.5); IG# 0.04 K/uL (0.00-0.02); LYMPH ABS # 0.95 K/uL (1.2-3.4); MEAN CELL VOLUME 85.9 fL (80-100); MEAN CORPUSCULAR HEMOGLOBIN 27.8 pg (25-34); MEAN CORPUSCULAR HGB CONC 32.4 g/dl (32-36); MEAN PLATELET VOLUME 9.9 fL (7.4-10.4); MONO % 10.8 %; MONO ABS # 0.57 K/uL (0.11-0.59); NEUT % 68.9 %; NEUT ABS # 3.63 K/uL (1.4-6.5); PLATELET COUNT 149 K/uL (130-400); RED CELL DISTRIBUTION WIDTH CV 13.7 % (11.5-14.5); RED CELL DISTRIBUTION WIDTH SD 42.9 fL (36.4-46.3); WHITE BLOOD COUNT 5.27 K/uL (4.8-10.8)
[2017-12-25 16:33] LABS: CALCIUM 8.3 mg/dl (8.5-10.1); CREATININE 1.26 mg/dl (0.60-1.40); POTASSIUM 3.7 mmol/L (3.5-5.1)
--- NOTE | 2017-12-25 17:01 | DIAGNOSTIC IMAGING REPORT ---
CHEST 2 VIEWS ROUTINE CLINICAL HISTORY: 72 years-old Male presenting with Shortness of breath. TECHNIQUE: PA and lateral views of the chest were obtained. COMPARISON: 07/02/2016. FINDINGS: Cardiomediastinal silhouette normal. Lungs and pleural spaces clear. Degenerative changes of the thoracic spine. Upper abdomen normal. IMPRESSION: 1. No acute cardiopulmonary disease. Electronically signed by: Kunal Bailey M.D. 12/25/2017 5:00 PM Dictated Date/Time: 12/25/2017 4:59 PM
[2017-12-25] MEDS ORDERED: MoRPHine SULFATE 4 MG/ML 1 ML CARP\\VIAL IV STA (17:18)
--- NOTE | 2017-12-25 17:18 | DIAGNOSTIC IMAGING REPORT ---
RIGHT KNEE 2 VIEWS HISTORY: Right Knee pain and swelling COMPARISON: None. FINDINGS: There is no fracture or dislocation. Soft tissues are unremarkable. Moderate joint effusion. Moderate osteoarthritis at the medial lateral compartments of the knees with marginal osteophytes. Hypertrophy tibial spines consistent with degenerative change. Severe osteoarthritis at the patellofemoral joint with large marginal osteophytes. IMPRESSION: 1. No fracture or dislocation within the right knee. 2. Moderate joint effusion. 3. Moderate to severe tricompartmental osteoarthritis. Electronically signed by: Tristin Martell M.D. 12/25/2017 5:16 PM Dictated Date/Time: 12/25/2017 4:59 PM
[2017-12-25] MEDS ORDERED: CEPH500C2 PO (17:26)
[2017-12-25] MEDS ORDERED: HYDR-5688 PO (17:26)
--- NOTE | 2017-12-25 17:30 | EMERGENCY ROOM VISIT NOTE ---
History First contact with patient: 14:44 Chief Complaint: LEG PAIN,LEG INJURY Stated Complaint: HURT TOE AND LEG History of Present Illness The patient is a 72 year old male who presents to the Emergency Room with complaints of avulsing the right toenail and right knee pain. The patient states that he has severe diabetic neuropathy in his feet and just noticed today that his toenail was sticking up from the toe. He denies any pain. The patient denies any injury to the toe or trauma to the toe. The patient also states that he has chronic knee pain but has increased knee pain and some swelling over the last several days. It is worse when he is walking. It aches all the time. The patient wears a knee brace on the right knee. The patient denies any erythema. The patient had surgery on his knee many years ago. He is unsure who did the surgery. The patient also states that he has had increased swelling in both his lower legs. He states last week his head of art , Dr. Castillo decreased his Lasix from 2 tablets to 1 tablet. The patient states that he is always short of breath. He denies any chest pain. Review of Systems 10 system review was performed and was negative unless stated otherwise history of present illness. Past Medical/Surgical History Medical Problems: (1) Cellulitis of left thigh (2) Cellulitis of left thigh (3) Congestive heart failure (4) Coronary artery disease (5) Diabetic neuropathy (6) Diabetic peripheral neuropathy associated with type 2 diabetes mellitus (7) DM (diabetes mellitus) (8) Dysesthesia (9) Foot deformity (10) Foot fracture (11) Hyperlipidemia (12) Hypertension (13) Loss of sensation (14) Unstable angina (15) Unstable angina (16) Vomiting blood Surgical Problems: (1) S/P angioplasties (2) S/P angioplasty with stent Family History FH: coronary artery disease Social History Smoking Status: Never Smoker Alcohol Use: none Drug Use: none Marital Status: in relationship Housing Status: lives with family Occupation Status: employed Current/Historical Medications Scheduled Aspirin (Aspirin Ec), 81 MG PO QAM Atorvastatin (Lipitor), 80 MG PO HS Budesonide/Formoterol Fumarate (Symbicort 160/4.5 Inhaler ), 2 PUFFS INH BID Carvedilol (Coreg), 25 MG PO BID Cholecalciferol (Vitamin D3), 1,000 INTER.UNIT PO DAILY Cinnamon (Cinnamon), 500 MG PO DAILY Cyanocobalamin (Vitamin B-12), 1,000 MCG SL DAILY Furosemide (Lasix), 40 MG PO BID Insulin Isophan/Regular (Novolin 70/30), 25 UNITS SC QAM Insulin Isophan/Regular (Novolin 70/30), 60 UNITS SC QPM Isosorbide Mononitrate Ext Rel (Imdur Ext Rel), 30 MG PO DAILY Lisinopril (Lisinopril), 20 MG PO BID Metformin Hcl (Glucophage), 1,000 MG PO BID Multiple Vitamins W/ Minerals (One Daily Mens), 1 TAB PO DAILY Pantoprazole (Pantoprazole Sodium), 40 MG PO BID Potassium Chloride Microencaps (Potassium Chloride Er), 10 MEQ PO DAILY Ranitidine Hcl (Zantac), 300 MG PO HS Scheduled PRN Docusate Sodium (Colace), 100 MG PO DAILY PRN for Constipation Meclizine HCl (Meclizine HCl), 25 MG PO DAILY PRN for Dizziness Nitroglycerin (Nitrostat), 0.4 MG UT UD PRN for Chest Pain Physical Exam Vital Signs Date Time Temp Pulse Resp B/P (MAP) Pulse Ox O2 Delivery O2 Flow Rate FiO2 12/25/17 16:34 71 16 141/64 95 Room Air 12/25/17 14:39 36.7 77 20 206/70 98 Room Air Physical Exam GENERAL: Obese 72-year-old white male appears in no acute distress. MENTAL Status: Alert and oriented 3 NECK: Supple, no lymphadenopathy noted. LUNGS: Clear auscultation without wheezes rales or rhonchi. CARDIAC: Regular rate and rhythm with murmurs noted both at the left and right sternal border which radiates to the carotids.. Pulses is full and equal throughout. RIGHT KNEE: No gross bony deformity noted. Effusion is noted. Patient is tenderness palpation over the medial aspect. Limited range of motion secondary to pain. No ligament instability noted. No erythema noted. Mild generalized edema noted. BILATERAL LOWER EXTREMITIES: 2+ pitting edema noted bilaterally. No cyanosis noted. RIGHT GREAT TOE: The right great toenail is avulsed from the nail bed and is at a 90 from the base of the nail. No active bleeding is noted. Medical Decision & Procedures ER Provider Diagnostic Interpretation: RIGHT KNEE 2 VIEWS HISTORY: Right Knee pain and swelling COMPARISON: None. FINDINGS: There is no fracture or dislocation. Soft tissues are unremarkable. Moderate joint effusion. Moderate osteoarthritis at the medial lateral compartments of the knees with marginal osteophytes. Hypertrophy tibial spines consistent with degenerative change. Severe osteoarthritis at the patellofemoral joint with large marginal osteophytes. IMPRESSION: 1. No fracture or dislocation within the right knee. 2. Moderate joint effusion. 3. Moderate to severe tricompartmental osteoarthritis. Electronically signed by: Tristin Martell M.D. 12/25/2017 5:16 PM Dictated Date/Time: 12/25/2017 4:59 PM CHEST 2 VIEWS ROUTINE CLINICAL HISTORY: 72 years-old Male presenting with Shortness of breath. TECHNIQUE: PA and lateral views of the chest were obtained. COMPARISON: 07/02/2016. FINDINGS: Cardiomediastinal silhouette normal. Lungs and pleural spaces clear. Degenerative changes of the thoracic spine. Upper abdomen normal. IMPRESSION: 1. No acute cardiopulmonary disease. Electronically signed by: Kunal Bailey M.D. 12/25/2017 5:00 PM Laboratory Results 12/25/17 15:55 Red Blood Count 3.96, Mean Corpuscular Volume 85.9, Mean Corpuscular Hemoglobin 27.8, Mean Corpuscular Hemoglobin Concent 32.4, Mean Platelet Volume 9.9, Neutrophils (%) (Auto) 68.9, Lymphocytes (%) (Auto) 18.0, Monocytes (%) (Auto) 10.8, Eosinophils (%) (Auto) 1.3, Basophils (%) (Auto) 0.2, Neutrophils # (Auto ) 3.63, Lymphocytes # (Auto) 0.95, Monocytes # (Auto) 0.57, Eosinophils # (Auto ) 0.07, Basophils # (Auto) 0.01 12/25/17 15:55 Test 12/25/17 15:55 White Blood Count 5.27 K/uL (4.8-10.8) Red Blood Count 3.96 M/uL (4.7-6.1) Hemoglobin 11.0 g/dL (14.0-18.0) Hematocrit 34.0 % (42-52) Mean Corpuscular Volume 85.9 fL (80-100) Mean Corpuscular Hemoglobin 27.8 pg (25-34) Mean Corpuscular Hemoglobin Concent 32.4 g/dl (32-36) Platelet Count 149 K/uL (130-400) Mean Platelet Volume 9.9 fL (7.4-10.4) Neutrophils (%) (Auto) 68.9 % Lymphocytes (%) (Auto) 18.0 % Monocytes (%) (Auto) 10.8 % Eosinophils (%) (Auto) 1.3 % Basophils (%) (Auto) 0.2 % Neutrophils # (Auto) 3.63 K/uL (1.4-6.5) Lymphocytes # (Auto) 0.95 K/uL (1.2-3.4) Monocytes # (Auto) 0.57 K/uL (0.11-0.59) Eosinophils # (Auto) 0.07 K/uL (0-0.5) Basophils # (Auto) 0.01 K/uL (0-0.2) RDW Standard Deviation 42.9 fL (36.4-46.3) RDW Coefficient of Variation 13.7 % (11.5-14.5) Immature Granulocyte % (Auto) 0.8 % Immature Granulocyte # (Auto) 0.04 K/uL (0.00-0.02) Anion Gap 7.0 mmol/L (3-11) Est Creatinine Clear Calc Drug Dose 66.9 ml/min Estimated GFR () 65.2 Estimated GFR (Non- 56.2 BUN/Creatinine Ratio 9.1 (10-20) Calcium Level 8.3 mg/dl (8.5-10.1) Pro-B-Type Natriuretic Peptide 197 pg/ml (0-900) Procedure Removal of right great toenail: Area was prepped with Betadine 3. Anesthesia was not performed since the patient has severe diabetic neuropathy. The remainder of the nail was loosened from the nailbed and cuticle and nail was lifted and removed. Patient tolerated procedure well. Antibiotic ointment and a bandage was applied. ED Course The patient was evaluated. Patient's EMR medication list were reviewed. IV access was obtained. CBC and differential, renal profile, BMP was ordered. Chest x-ray was ordered and interpreted by the radiologist as above without any acute findings or signs of congestive heart failure. Right knee x-ray was ordered interpreted by the radiologist and myself as above with tricompartment arthritis and large joint effusion. Right great toenail was removed as above. The patient was independently evaluated by Dr. Ward who agrees with treatment plan. Labs are reviewed and were unremarkable. Renal function was normal. BNP was 197. The patient was informed of all findings and discharged home in stable condition. Medical Decision Differential diagnosis include congestive heart failure, peripheral edema, toenail avulsion, knee fracture, ligament strain, osteoarthritis Since the patient is diabetic he will be placed prophylactically on Keflex due to the toenail avulsion. [place] Drug Monitoring Program Search Results: patient reviewed within database Medication Reconcilliation Current Medication List: was personally reviewed by [facility] Blood Pressure Screening Patient's blood pressure: Elevated blood pressure Blood pressure disposition: Elevated BP felt to be situational Impression Primary Impression: Toenail avulsion Additional Impressions: Peripheral edema Knee pain, right Departure Information Dispostion Home / Self-Care Condition GOOD Prescriptions Hydrocodone/Acetaminophen 5MG/325MG ([place] 5MG/325MG) Tab 1 TABLET PO q4-6hrs Y for Pain, #18 TAB For Initial Treatment Prov: Radha Arriaga PA-C 12/25/17 Cephalexin Monohydrate (KEFLEX) 500 Mg Cap 500 MG PO QID for 10 Days, #40 CAP Prov: Radha Arriaga PA-C 12/25/17 Referrals Joaquín Luna M.D. (PCP) Forms HOME CARE DOCUMENTATION FORM, IMPORTANT VISIT INFORMATION Patient Instructions [facility] Additional Instructions Antibiotic ointment and a bandage to the toe for the next 3 days. Wear postop shoe until it is tolerable to wear a shoe. Take Keflex as prescribed. Wear the knee brace until you follow-up with your PCP next week for referral to orthopedics. Take [place] as needed for pain. Do not drive while taking the [place]. Call Dr. Castillo, cardiology stating that you have increased swelling in both your legs to possibly resume increasing your Lasix to 2 tabs daily. If symptoms worsen in the interim, return to the ER. Problem Qualifiers Primary Impression: Toenail avulsion Encounter type: initial encounter Qualified Codes: S91.209A - Unspecified open wound of unspecified toe(s) with damage to nail, initial encounter Additional Impressions: Knee pain, right Chronicity: chronic Qualified Codes: M25.561 - Pain in right knee; G89.29 - Other chronic pain
[2017-12-25 17:35] VITALS: BP 154/72; PULSE 80; O2SAT 96
== END 2017-12-25 17:40 | disposition home or self-care (01) ==
LOC: C.EDD 15:01
DX: S91.211A Laceration without foreign body of right great toe with damage to nail, initial encounter (principal); X58.XXXA Exposure to other specified factors, initial encounter; M25.561 Pain in right knee; G89.29 Other chronic pain; E11.40 Type 2 diabetes mellitus with diabetic neuropathy, unspecified; I25.10 Atherosclerotic heart disease of native coronary artery without angina pectoris; E78.5 Hyperlipidemia, unspecified; I10 Essential (primary) hypertension; Z95.5 Presence of coronary angioplasty implant and graft; Z82.49 Family history of ischemic heart disease and other diseases of the circulatory system; Z79.82 Long term (current) use of aspirin; Z79.899 Other long term (current) drug therapy; Z79.4 Long term (current) use of insulin; Z79.84 Long term (current) use of oral hypoglycemic drugs

== ENCOUNTER 2018-07-30 05:12 | Inpatient (IN) ==
--- NOTE | 2018-07-12 08:51 | History & Physical Report ---
Date of Service July 12, 2018 Date of Surgery: 07-30-18 Assessment & Plan (1) Tricompartment osteoarthritis of right knee: Risks and benefits of procedure discussed in detail today, patient would like to proceed with a Right total knee replacement @ [facility] as scheduled. will obtain cardiac clearance by Dr Castillo prior to surgery as well as obtain PATs at [facility]. Will place on ASA 81mg po bid x 1 month post op, f/u 2 weeks post op for routine post-operative care and xray, sooner if having any problems. will make arrangements for HHPT at the time of discharge. History of Present Illness Chief Complaint: Right knee pain Primary Care Provider: Joaquín Luna MD Mr Garibay is a 73 year old male who complains of right knee pain, presents for pre-op evaluation prior to right total knee replacement on 07-30-18. He presents with chronic pain, crepitus and instability on the right side. Patient is here today for pre-op visit for right TKA for 07/30/18. He states that the symptoms have been chronic non-traumatic. The symptoms occur constantly with intermittent worsening. Currently the patient states that the symptoms are severe. The pain is described as aching, throbbing and sometimes sharp. The symptoms occur continuously. He rates his current pain as 10/10, least is a 3/10. The symptoms are aggravated by daily activities and walking. Gumaro states that the symptoms are relieved by no specific activity. In addition to right knee pain the patient is also experiencing limping. Patient is using cane for ambulation. he states that he did have a cortisone injection into that knee several years ago. Allergies Allergy/AdvReac Type Severity Reaction Status Date / Time clindamycin Allergy Mild RASH Verified 07/08/18 09:45 Home Medications Home Medications Medication Instructions Recorded Confirmed Type aspirin [Aspirin Low Dose] 81 mg PO QAM 07/08/18 07/08/18 History atorvastatin 80 mg PO QAM 07/08/18 07/08/18 History budesonide-formoterol [Symbicort] 2 puff INHALATION BID 07/08/18 07/08/18 His tory carvedilol 25 mg PO BID 07/08/18 07/08/18 History cholecalciferol (vitamin D3) 1,000 unit PO QAM 07/08/18 07/08/18 History [Vitamin D3] cinnamon bark [Cinnamon] 500 mg PO QAM 07/08/18 07/08/18 History cyanocobalamin (vitamin B-12) 1,000 mcg PO QAM 07/08/18 07/08/18 History [Vitamin B-12] doxazosin 2 mg PO HS 07/08/18 07/08/18 History furosemide 40 mg PO BID 07/08/18 07/08/18 History hydrocodone-acetaminophen 1 tab PO Q6H PRN 07/08/18 07/08/18 History insulin NPH and regular human 40 unit SUBCUT QAM 07/08/18 07/08/18 History [Novolin 70-30 FlexPen U-100] insulin NPH and regular human 70 unit SUBCUT HS PRN 07/08/18 07/08/18 History [Novolin 70-30 FlexPen U-100] lisinopril 20 mg PO BID 07/08/18 07/08/18 History meclizine 25 mg PO HS 07/08/18 07/08/18 History metformin 1,000 mg PO BID 07/08/18 07/08/18 History nitroglycerin 1 tab SUBLINGUAL DIRECTED PRN 07/08/18 07/08/18 History pantoprazole 40 mg PO HS 07/08/18 07/08/18 History potassium chloride 10 meq PO HS 07/08/18 07/08/18 History pramipexole 0.5 mg PO HS 07/08/18 07/08/18 History ranitidine HCl 300 mg PO QAM 07/08/18 07/08/18 History verapamil 360 mg PO HS 07/08/18 07/08/18 History Past Med/Surg History Medical History Carpal tunnel syndrome on both sides DJD (degenerative joint disease) of knee Exertional dyspnea GERD (gastroesophageal reflux disease) High cholesterol History of cancer abdominal - had surgery at [facility] - 2017 Hx of diabetic neuropathy Both feet - cannot walk in bear foot - has burning and pain in both feet Hx of myocardial infarction Hx of vertigo Hypertension Sleep apnea Surgical History History of cardiac cath x2 - [facility] - Ist cath had stent - Patient not aware of any stents - just from history information obtained -last cath 06/2018 History of meniscectomy of left knee History of meniscectomy of right knee Hx of elbow surgery right and left Hx of hand surgery both Family History Brother Family history of diabetes mellitus Sister Family history of diabetes mellitus Mother Family history of diabetes mellitus Social History Current Living Situation: Significant Other Other Information That Helps Us Care for You: No Feels Safe at Home: Yes Safety Concerns: Feels Safe At This Time Smoking Status: Former smoker Smoking End Date: 40 yr ago Hx Alcohol Use: No Hx Substance Use: No Beliefs That Will Affect Care: None Preferred Language: Nigerien Communication Ability: Effective Review of Systems All systems reviewed & are unremarkable except as noted in HPI & below Constitutional: no fever, no chills and no sweats Respiratory: no cough and no dyspnea Cardiovascular: no chest pain, no dyspnea and no orthopnea Gastrointestinal: no nausea and no vomiting Integumentary: no rash and no lesions Physical Exam Vital Signs (Past 24 Hours): Ht: [id number] Wt: 117.9kg BP: 142/62 Pulse: 96 Resp: 18 Constitutional: WD/WN, vitals as above no acute distress Respiratory: normal respiratory effort, lungs clear to auscultation no labored breathing and does not use accessory muscles Cardiovascular: Rate/Rhythm: regular rate and regular rhythm Extremities: normal capillary refill; no calf tenderness Gastrointestinal (Abdomen): normal bowel sounds, soft, nontender, no hepatosplenomegaly Musculoskeletal: Right Knee Exam Ambulates with a limp with assistance of a cane, overall varus alignment, no Atrophy or Ecchymosis, mild Effusion, Maximum tenderness Medial joint line and diffuse, negative patellar Apprehension , mild Crepitation with motion, Patella position Neutral, Bobbi's Negative, Jake's - lateral positive, Jake's - medial positive, Posterior drawer- Negative, Anterior drawer Negative, Valgus stress Negative, Varus stress Negative, no Extensor lag, Pain with Active range of motion, also passive painful ROM, Range of motion 0/3/110. No pain with active/passive ROM of ankle. Lower Extremity Strength normal. Lower Extremity Neuro-vascular is normal Skin: no rashes and no lesions Results & Data Diagnostic Findings Right knee X-ray from 07/12/18: advanced tricompartmental degenerative changes with bone on bone changes, osteophyte formation, subchondral sclerosis. complete loss of joint space medial compartment and patellofemoral joints. no acute bony pathology, no loose bodies. findings consistent with advanced tricompartmental degenerative changes.
--- NOTE | 2018-07-12 10:10 | Anesthesiology Consultation ---
Date of Service July 12, 2018 Assessment & Plan (1) Encounter for pre-operative examination: Plan: Patient seen for preoperative cardiovascular clearance 06/25/18. "We recommend left and right cardiac catheterization for further evaluation of his symptoms and risk stratification prior to undergoing knee surgery. He has known RCA [employer] on cardiac cath in 2013 which is potentially amenable to intervention if felt necessary. Also concerned about the possibly of new lesions involving his other coronary arteries." Patient subsequently had cardiac cath 07/01/2018. Per cath recommendations: Chronic total occlusion of RCA known for more than 8 years. No inferior ischemia on prior stress test. No identifiable cardiac cause for patient's progressive shortness of breath. Continued evaluation for noncardiac causes of patient's shortness of breath. Continued ASCVD risk factor modification. Patient is okay to undergo planned orthopedic surgery without additional cardiac testing. Chart Review Chart Review: Acceptable Risk for Surgery and Patient seen in Pre Admission Testing Teaching & Discussion Instructed NPO after midnight before surgery, except medications with 15 cc of water. Medication instructions provided according to the PAT guidelines. History Surgery Operation Date: 07/30/18 08:35 Proposed Procedures p Right Total Knee Arthroplasty - Robert Villarreal DO Height/Weight Height: 5 ft 10 in Weight: 122.5 kg Allergies Allergy/AdvReac Type Severity Reaction Status Date / Time clindamycin Allergy Mild RASH Verified 07/08/18 09:45 Medications Home Medications Medication Instructions Recorded Confirmed Last Taken aspirin [Aspirin Low Dose] 81 mg PO QAM 07/08/18 07/08/18 Unknown atorvastatin 80 mg PO QAM 07/08/18 07/08/18 Unknown budesonide-formoterol [Symbicort] 2 puff INHALATION BID 07/08/18 07/08/18 Unknown carvedilol 25 mg PO BID 07/08/18 07/08/18 Unknown cholecalciferol (vitamin D3) 1,000 unit PO QAM 07/08/18 07/08/18 Unknown [Vitamin D3] cinnamon bark [Cinnamon] 500 mg PO QAM 07/08/18 07/08/18 Unknown cyanocobalamin (vitamin B-12) 1,000 mcg PO QAM 07/08/18 07/08/18 Unknown [Vitamin B-12] doxazosin 2 mg PO HS 07/08/18 07/08/18 Unknown furosemide 40 mg PO BID 07/08/18 07/08/18 Unknown hydrocodone-acetaminophen 1 tab PO Q6H PRN 07/08/18 07/08/18 Unknown insulin NPH and regular human 40 unit SUBCUT QAM 07/08/18 07/08/18 Unknown [Novolin 70-30 FlexPen U-100] insulin NPH and regular human 70 unit SUBCUT HS PRN 07/08/18 07/08/18 Unknown [Novolin 70-30 FlexPen U-100] lisinopril 20 mg PO BID 07/08/18 07/08/18 Unknown meclizine 25 mg PO HS 07/08/18 07/08/18 Unknown metformin 1,000 mg PO BID 07/08/18 07/08/18 Unknown nitroglycerin 1 tab SUBLINGUAL DIRECTED PRN 07/08/18 07/08/18 Unknown pantoprazole 40 mg PO HS 07/08/18 07/08/18 Unknown potassium chloride 10 meq PO HS 07/08/18 07/08/18 Unknown pramipexole 0.5 mg PO HS 07/08/18 07/08/18 Unknown ranitidine HCl 300 mg PO QAM 07/08/18 07/08/18 Unknown verapamil 360 mg PO HS 07/08/18 07/08/18 Unknown Past Medical History Medical History Coronary artery disease (Chronic) Chronic total occlusion of RCA. 40-50% stenosis at mid LAD at takeoff of small second Dx. Second Dx with 80% ostial stenosis. (Per cardiac cath 06/2018) DM (diabetes mellitus) (Chronic) IDDM, A1C 7.3% 07/12 COPD (chronic obstructive pulmonary disease) PFTs 05/2018 c/w air trapping. Carpal tunnel syndrome on both sides DJD (degenerative joint disease) of knee Exertional dyspnea Worsening exertional dyspnea. Had cardiac cath last week to evaluate for cardiac cause. Ruled non-cardiac, likely 2/2 obesity and/or COPD. GERD (gastroesophageal reflux disease) High cholesterol History of cancer abdominal - had surgery at [facility] - 2017 Hx of diabetic neuropathy B/L feet numb Hx of vertigo Hypertension Sleep apnea uses CPAP HS Past Family History Family History Brother Family history of diabetes mellitus Sister Family history of diabetes mellitus Mother Family history of diabetes mellitus Past Surgical History Surgical History H/O colonoscopy H/O esophagogastroduodenoscopy History of cardiac cath 2010, no stents 07/01/18, no stents -- chronic total occlusion of RCA. History of meniscectomy of left knee History of meniscectomy of right knee Hx of elbow surgery right and left Past Anesthesia History No Hx of Anesthesia Complications ("trouble waking up" no h/o reintubation or unanticipated admission) and No Family Hx of Anesthesia Complications *NOTE ON 2014 LUMBAR LAMINECTOMY: " NOT AN EASY MASK WITH 10MM ORAL AIRWAY IN PLACE. OPTED TO PLACE ETT 20 SEC AFTER NIMBEX PUSHED, CORDS OPEN. EASY PLACEMENT. ATRAUMATIC. SAT DECREASED TO 91%, INCREASED TO 100% IMMEDIATELY AFTER INTUBATION. MAC 4, ETT 8.0, GRADE VIEW I. History of PONV Yes Motion Sickness Screening History of Motion Sickness: No Social History Smoking Status: Former smoker Do You Dip or Chew Tobacco: No Smoking End Date: 40 yr ago Hx Alcohol Use: No Hx Substance Use: No substance use type: does not use Exercise / Class Metabolic Activity III < 4 Walking/Shop/Light housework (Using cane for ambulation, + SOB with ambulation, no chest pain) Review of Systems Pt denies any recent chest pain, palpitations, cough, fever or URI. +worsening BENDER, ruled 2/2 obesity, heart cath 06/2018 showed chronic total occlusion but no lesions causing ischemia. Physical Exam Vital Signs BP: 163/71 (pt's daughter checks his BP at home and pt says it's WNL. He is in some pain today). P: 64 bpm SPO2: 95% RA T: 97.8 R: 16 ENMT Mouth: + dentures (upper denture) Thyromental Distance: < 3.5 Finger Breadths (3) Mallampati Class: III Only 4 teeth remain on bottom. Neck + short neck, + thick neck and + limited neck extension Respiratory normal respiratory effort Auscultation: lungs clear to auscultation bilaterally and + bronchial breath sounds (B/L) Cardiovascular Rate/Rhythm: regular rate and regular rhythm Heart Sounds: no murmur Vessels: no carotid bruit Extremities: no edema Testing Electrocardiogram Date: 07/12/18 Findings: + NSR @ (62) Chest X-Ray Date: 12/25/17 Findings: + NAD Echocardiogram Date: 07/27/16 EF: 60-65% Left ventricular systolic function is normal. No regional wall motion abnormalities noted. There is moderate asymmetric LVH. Grade 1 diastolic dysfunction. Bubble study inadequate to assess for patent foramen ovale or pedal pulmonary shunting. Stress Test Date: 06/08/16 Type: nuclear Negative regadenoson Cardiolite for ischemia. There is a small mild largely fixed inferior perfusion defect with no corresponding wall motion abnormality. This is likely representing artifact, however, less likely could represent inferior infarct. Normal left ventricular size and function. No regional wall motion normalities. Ejection fraction 70%. Stress EKG was nondiagnostic with no regadenoson induced EKG changes or arrhythmias or symptoms. Cardiac Catheterization Date: 07/01/18 Severe single-vessel chronic coronary artery disease. 100% early mid RCA chronic total occlusion filling distally via right to right and left to right collaterals. 40-50% mid LAD at the takeoff of small second diagonal. Second diagonal with 80% ostial stenosis. Normal left and right-sided filling pressures. Normal pulmonary artery pressures. Preserved cardiac output. Pulmonary Function Test Date: 05/27/18 Findings: + FEV1 pre (81%), + FEV1 post (83%) and + DLCO (59% predicted) Spirometry shows a decreased forced vital capacity and low normal FEV1. Flows were normal. Pattern is that of mild restriction. Repeat study done following bronchodilator showed no significant change in function. Comparison with prior study done 05/26/2016 shows there is been a mild decline in forced vital capacity and FEV1. Lung volumes show increased residual volume and RV/TLC ratio. This is compatible with air trapping. Diffusion is moderately reduced to 59% of predicted. Laboratory Results 07/12/18 10:24 07/12/18 10:59 Blood Type O Positive 07/12/18 10:24 Antibody Screen NEGATIVE 07/12/18 10:24 PT 11.9 Seconds (9.0-12.0) 07/12/18 10:29 INR 1.2 (0.9-1.1) H 07/12/18 10:29 APTT 24.5 Seconds (21.0-31.0) 07/12/18 10:29 Hemoglobin A1c 7.3 % (4.5-5.6) H 07/12/18 10:24 Urine Color Yellow 07/12/18 10:24 Urine Appearance Cloudy (Clear) H 07/12/18 10:24 Urine pH 5.5 (4.5-7.5) 07/12/18 10:24 Ur Specific [place] 1.010 (1.000-1.030) 07/12/18 10:24 Urine Protein Negative (Negative) 07/12/18 10:24 Urine Glucose (UA) Negative (Negative) 07/12/18 10:24 Urine Ketones Negative (Negative) 07/12/18 10:24 Urine Nitrite Negative (Negative) 07/12/18 10:24 Ur Leukocyte Esterase Negative (Negative) 07/12/18 10:24 Urine WBC (Auto) 0 /hpf (0-5) 07/12/18 10:24 Urine RBC (Auto) 0-4 /hpf (0-4) 07/12/18 10:24 U Hyaline Cast (Auto) 0 /lpf (0-5) 07/12/18 10:24 U Epithel Cells (Auto) 10-20 /lpf (0-5) H 07/12/18 10:24 Urine Bacteria (Auto) Negative (Negative) 07/12/18 10:24 07/12/18 10:24 Urine Culture - Final Urine,Clean Catch Alpha strep. not enterococcus H+H is at baseline.
--- NOTE | 2018-07-12 10:25 | PAT Medication Instructions ---
Medication Instructions Date of Service July 12, 2018 Home Medications aspirin [Aspirin Low Dose] 81 mg PO QAM atorvastatin 80 mg PO QAM budesonide-formoterol [Symbicort] 2 puff INHALATION BID carvedilol 25 mg PO BID cholecalciferol (vitamin D3) 1,000 unit PO QAM cinnamon bark [Cinnamon] 500 mg PO QAM cyanocobalamin (vitamin B-12) 1,000 mcg PO QAM doxazosin 2 mg PO HS furosemide 40 mg PO BID hydrocodone-acetaminophen 1 tab PO Q6H PRN [Novolin 70-30 FlexPen U-100] 40 unit SUBCUT QAM [Novolin 70-30 FlexPen U-100] 70 unit SUBCUT HS PRN lisinopril 20 mg PO BID meclizine 25 mg PO HS metformin 1,000 mg PO BID nitroglycerin 1 tab SUBLINGUAL DIRECTED PRN pantoprazole 40 mg PO HS potassium chloride 10 meq PO HS pramipexole 0.5 mg PO HS ranitidine HCl 300 mg PO QAM verapamil 360 mg PO HS STOP taking 2 weeks before surgery cinnamon bark [Cinnamon] 500 mg PO QAM STOP taking 24 hours before surgery pramipexole 0.5 mg PO HS DO NOT take the morning of surgery cholecalciferol (vitamin D3) 1,000 unit PO QAM cyanocobalamin (vitamin B-12) 1,000 mcg PO QAM furosemide 40 mg PO BID lisinopril 20 mg PO BID metformin 1,000 mg PO BID Take morning of surgery With a small sip of water, OTHERWISE NOTHING TO EAT OR DRINK AFTER MIDNIGHT: aspirin [Aspirin Low Dose] 81 mg PO QAM atorvastatin 80 mg PO QAM budesonide-formoterol [Symbicort] 2 puff INHALATION BID carvedilol 25 mg PO BID hydrocodone-acetaminophen 1 tab PO Q6H PRN (if needed, may be taken up to four hours before surgery) nitroglycerin 1 tab SUBLINGUAL DIRECTED PRN (if needed) ranitidine HCl 300 mg PO QAM Take evening before surgery doxazosin 2 mg PO HS budesonide-formoterol [Symbicort] 2 puff INHALATION BID carvedilol 25 mg PO BID furosemide 40 mg PO BID hydrocodone-acetaminophen 1 tab PO Q6H PRN (if needed) [Novolin 70-30 FlexPen U-100] 70 unit SUBCUT HS PRN (if needed) lisinopril 20 mg PO BID meclizine 25 mg PO HS metformin 1,000 mg PO BID nitroglycerin 1 tab SUBLINGUAL DIRECTED PRN (if needed) pantoprazole 40 mg PO HS potassium chloride 10 meq PO HS verapamil 360 mg PO HS Insulin Dependent Diabetic Patients * Test your blood sugar the morning of surgery * If Blood Sugar is GREATER THAN 150, take HALF of your regular dose of: [ Novolin 70-30 FlexPen U-100] 40 unit SUBCUT QAM -- TAKE 20 UNITS * If Blood Sugar is LESS THAN 150, DO NOT TAKE ANY: [Novolin 70-30 FlexPen U-100 ] Other Notes If you have any questions please call us at [phone] or [phone] or [phone] or [phone]
[2018-07-12 11:38] LABS: Basophils # (auto) 0.03 K/uL (0-0.2); Basophils % (auto) 0.4 %; Eosinophils % (auto) 1.3 %; Immature Granulocytes # (auto) 0.05 K/uL (0.00-0.02); Immature Granulocytes % (auto) 0.7 %; Lymphocytes # (auto) 2.94 K/uL (1.2-3.4); Lymphocytes % (auto) 39.6 %; Mean Corpuscular Hgb Conc 32.4 g/dL (32-36); Mean Corpuscular Volume 84.4 fL (80-100); Mean Platelet Volume 10.4 fL (7.4-10.4); Monocytes # (auto) 0.61 K/uL (0.11-0.59); Monocytes % (auto) 8.2 %; Neutrophils # (auto) 3.69 K/uL (1.4-6.5); Neutrophils % (auto) 49.8 %; Platelet Count 257 K/uL (130-400); RDW Coefficient of Variation 14.4 % (11.5-14.5); RDW Standard Deviation 44.5 fL (36.4-46.3); Red Blood Count 4.03 M/uL (4.7-6.1); White Blood Count 7.42 K/uL (4.8-10.8)
[2018-07-12 11:50] LABS: Albumin Level 3.7 gm/dl (3.4-5.0); BUN Creatinine Ratio 15.7 (10-20); Calcium 8.9 mg/dl (8.5-10.1); Creatinine Clr Calc Pharmacy 63.5 ml/min; Est GFR (African American) 60.1; Est GFR (Non-African American) 51.8; Potassium 4.1 mmol/L (3.5-5.1)
[2018-07-12 11:57] LABS: Appearance Urine Cloudy (Clear); Bacteria Urine Automated Negative (Negative); Bilirubin Urine Negative (Negative); Blood Urine Negative (Negative); Cast Urine Automated 0 /lpf (0-5); Color Urine Yellow; Glucose Urine UA Negative (Negative); Ketones Urine Negative (Negative); Leukocyte Esterase Urine Negative (Negative); Nitrite Urine Negative (Negative); Protein Urine Negative (Negative); RBC Urine Automated 0-4 /hpf (0-4); Urobilinogen Urine Negative (Negative); WBC Urine Automated 0 /hpf (0-5); pH Urine 5.5 (4.5-7.5)
[2018-07-12 11:57] LABS: INR 1.2 (0.9-1.1); Partial Thromboplastin Ratio 0.9; Partial Thromboplastin Time 24.5 Seconds (21.0-31.0); Prothrombin Time 11.9 Seconds (9.0-12.0)
[2018-07-12 12:19] LABS: Estimated Average Glucose 163 mg/dl; Hemoglobin A1C 7.3 % (4.5-5.6)
[2018-07-30] MEDS ORDERED: TRANEXAMIC ACID 1,000 MG **IV Pre-op IV SCH (06:00)
[2018-07-30] MEDS ORDERED: dexAMETHasone 4 MG TAB PO SCH (06:00)
[2018-07-30] MEDS ORDERED: GABAPENTIN 300 MG PO SCH (06:00)
[2018-07-30] MEDS ORDERED: LR 500ML BOLUS, THEN 15ML/HR IV SCH (06:00)
[2018-07-30] MEDS ORDERED: METOCLOPRAMIDE HCL 10 MG TABLET PO SCH (06:00)
[2018-07-30] MEDS ORDERED: CeleBREX 200 MG CAP PO SCH (06:00)
[2018-07-30] MEDS ORDERED: ACETAMINOPHEN 500 MG TAB PO SCH (06:00)
[2018-07-30] MEDS ORDERED: ROPIVACAINE 0.5% HCL/PF 150 MG, BUPIVACAINE 0.5% MPF 30 ML, EPINEPHrine 30MG/30ML (OR U... INFIL SCH (06:00)
[2018-07-30] MEDS ORDERED: CEFAZOLIN 3000MG 65 ML IV SCH (06:00)
[2018-07-30] MEDS ORDERED: FAMOTIDINE 20 MG TAB PO SCH (06:00)
[2018-07-30] MEDS ORDERED: TRANEXAMIC ACID 1,000 MG **IV Intra-op IV SCH (06:30)
[2018-07-30] MEDS ORDERED: BUPIVACAINE 0.5 % 5 MG/1 ML PF 10ML VIAL ONE (06:33)
[2018-07-30] MEDS ORDERED: ROPIVACAINE 0.5% 5 MG/ML 30 ML VIAL ONE (06:33)
[2018-07-30] MEDS ORDERED: MIDAZOLAM HCL 1 MG/ML 2ML VIAL ONE ×2 (06:37)
[2018-07-30] MEDS ORDERED: LIDOCAINE HCL 2% 2 ML VIAL/AMP(20MG/ML) INFIL ONE (06:37)
[2018-07-30] MEDS ORDERED: PROPOFOL IV EMULSION 10 MG/ML 20 ML VIAL IV ONE (06:37)
--- NOTE | 2018-07-30 07:00 | History & Physical Bridge Note ---
Date of Service July 30, 2018 History & Physical Bridge Note I have examined the patient, reviewed the History & Physical and in the interval since the performance of the History & Physical I have noted the following changes of clinical significance: no changes noted
[2018-07-30] MEDS ORDERED: ORTHO JOINT ANESTHETIC ONE (07:10)
[2018-07-30] MEDS ORDERED: BACITRACIN INJ 50,000 UNIT VIAL ONE (07:10)
[2018-07-30] MEDS ORDERED: POVIDONE-IODINE OP SOLN 30 ML BTL ONE (07:10)
[2018-07-30] MEDS ORDERED: fentaNYL citrate 100 MCG/2 ML VIAL ONE ×2 (07:31→08:07)
[2018-07-30] MEDS ORDERED: HYDROmorphone INJ 1 MG/ML SYRINGE IV PRN (07:41)
[2018-07-30] MEDS ORDERED: ATROPINE SULFATE 0.1 MG/ML 10ML SYR IV PRN (07:41)
[2018-07-30] MEDS ORDERED: ePHEDrine sulfate 50 MG/ML AMP IV PRN (07:41)
[2018-07-30] MEDS ORDERED: KETOROLAC TROMETHAMINE 15 MG/ML VIAL IV PRN (07:41)
[2018-07-30] MEDS ORDERED: ALBUTEROL 0.083% NEBU SOLN 3 ML VIAL INH PRN (07:41)
[2018-07-30] MEDS ORDERED: ONDANSETRON INJ 2 MG/ML 2 ML VIAL IV PRN (07:41)
[2018-07-30] MEDS ORDERED: SUCCINYLCHOLINE 100MG/5ML SYR ONE (07:50)
[2018-07-30] MEDS ORDERED: ePHEDrine sulfate 50 MG/ML SYR ONE (07:50)
[2018-07-30] MEDS ORDERED: ONDANSETRON INJ 2 MG/ML 2 ML VIAL ONE ×2 (08:07→08:08)
[2018-07-30] MEDS ORDERED: GLYCOPYRROLATE 0.2 MG/ML VIAL ONE (08:07)
[2018-07-30] MEDS ORDERED: PHENYLEPHRINE HCL 10 MG/ML VIAL ONE (08:09)
--- NOTE | 2018-07-30 08:35 | Operative Report ---
Post Operative Report Pre & Post Diagnosis Operation Date: 07/30/18 07:15 Pre-Op Diagnosis: Right Knee Osteoarthritis Post-Op Diagnosis: Right Knee Osteoarthritis Procedure Operation Date: 07/30/18 07:15 Actual Procedures p Right Total Knee Arthroplasty(Right) utilizing [employer] non-bloc journey to total knee arthroplasty size 7 femur 6 tibia 9 polyethylene 35 oval patella- Robert Villarreal DO Surgeon Robert Villarreal DO Automatic [employer] Former Kerwin VELEZ Estimated Blood Loss 5 Findings Consistent with Post-Op Diagnosis Patient presents with severe end-stage tricompartmental degenerative joint disease time of surgery patient had evidence of subchondral sclerotic changes medial lateral marginal osteophytes moderate to large effusion varus alignment with eburnated bone on bone changes tricompartmentally large inferior osteo phytes patella intra-articular loose bodies Specimens Bone and cartilage Drains Medium bore Hemovac Complications none Disposition Accompanied Patient To Recovery: No Disposition: Recovery Room Indications Patient presents with severe end-stage tricompartmental degenerative joint disease no response to conservative management patient presents for right total knee arthroplasty after failing attempts at conservative management and physical therapy anti-inflammatories relative rest activity medication corticosteroid injections Visco supplementation bracing Description of Procedure After proper prepping and draping of the Right lower extremity anterior midline incision was made over the region of the extensor extensor mechanism after meticulous hemostasis was obtained and maintained in subcutaneous tissues a medial parapatellar incision was made The patella was subluxed lateralward the medial lateral gutter were cleaned from any hypertrophic synovitis and scar tissue of the distal femoral block was placed and the distal femoral osteotomy cut was made subsequently the chamfers anterior and posterior osteotomy cuts were made utilizing the 4-in-1 block the tibia was subsequently subluxed anteriorward medial and ateral meniscal remnants were excised in their entirety remnants of the anterior and posterior cruciate ligaments were excised in their entirety excellent exposure of the proximal tibia was obtained the tibial osteotomy guide was placed on the proximal tibial osteotomy cut was made once again the knee was irrigated with copious amounts of sterile saline solution the patella was subsequently everted lateralward thickened scar tissue around the patella was removed the patella was subsequently cut utilizing a freehand technique and was drilled prepared for final preparation and placement of patella socially flexion-extension gaps were checked and the equal and symmetric trials were placed to the appropriate femoral and tibial trials with poly-spacer being placed for equal flexion and extension gaps and full range of motion including extension to 0 and flexion to 140 the trial components after having been taken to recovery range of motion was subsequently removed meticulous hemostasis was obtained and maintained subsequently a knee block injection of joint cocktail including ropivacaine 0.5% 150 mg. Bupivacaine 0.5% epinephrine 1-200,030 mL's toradol 30 mg dexamethasone 4 mg ketamine 10 mg clonidine 100 micrograms normal saline solution 30 mg was infiltrated into the soft tissues of the posterior knee medial lateral gutters and periosteal synovium special attention was paid to protect neurovascular structures at all times subsequently trial components having been removed the knee was irrigated with sterile saline solution. debris was removed the proximal tibia was subsequently prepared and was made ready for the placement of the tibial component tibial component was also cemented and tamped into position the femoral component was subsequently placed and cemented in the position the patellar component was subsequently cemented in position because hemostasis once again obtained and maintained wound having been thoroughly irrigated with debridement and debridement lavage was performed as well as a medial parapatellar incision closed with #1 Vicryl in interrupted fashion subcutaneous was closed with #2 Vicryl skin was closed with skin clips. PA-C was necessary for prepping and drapping as well as wound closure of deep fascia Sub cutaneous tissue and skin and was necessary for the case. A sterile compressive dressing was placed patient was taken to recovery in stable condition of report dictated by Phil I attest to the content of the Intraoperative Record and any orders documented therein. Any exceptions are noted below. I attest to the content of the Intraoperative Record and any orders documented therein. Any exceptions are noted below.
--- NOTE | 2018-07-30 10:11 | Anesthesiology Progress Note ---
Date of Service July 30, 2018 Anesthesia Post Procedure Vital Signs Vital Signs: Temp Pulse Pulse Resp BP Pulse Ox 07/30/18 10:00 36.9 C 66 18 129/65 97 07/30/18 09:50 36.9 C 65 18 131/61 97 07/30/18 09:40 66 18 125/58 L 98 07/30/18 09:30 66 18 129/63 97 07/30/18 09:20 66 18 125/61 98 07/30/18 09:14 37.1 C 65 18 111/55 L 96 07/30/18 05:54 36.7 C 71 20 174/72 H 93 Pain Intensity Right Knee: Pain Intensity: 3 Notes Mental Status: alert / awake / arousable Patient Amnestic to Procedure: Yes Nausea / Vomiting: adequately controlled Pain: adequately controlled Airway Patency, RR, SpO2: stable & adequate BP & HR: stable & adequate Hydration State: stable & adequate Neuraxial Anesthesia: was administered and sensory block is resolving Anesthetic Complications: no major complications apparent
[2018-07-30] MEDS ORDERED: METOCLOPRAMIDE HCL INJ 5 MG/ML 2 ML VIAL IV PRN (10:35)
[2018-07-30] MEDS ORDERED: NALOXONE HCL 0.4 MG/1 ML VIAL/CARP IV PRN (10:35)
[2018-07-30] MEDS ORDERED: NITROGLYCERIN SL 0.4 MG/TAB TAB SL PRN (10:35)
[2018-07-30] MEDS ORDERED: MAGNESIUM HYDROXIDE SUSP 30 ML UDC PO PRN (10:35)
[2018-07-30] MEDS ORDERED: BISACODYL 10 MG SUPP PR PRN (10:35)
[2018-07-30] MEDS ORDERED: SODIUM CHLORIDE 0.9% 1000ML 1,000 ML IV SCH (10:35)
--- NOTE | 2018-07-30 10:52 | XRay Report ---
XR knee RT 2V routine CLINICAL HISTORY: Surgical Post Op postoperative evaluation COMPARISON: None. DISCUSSION: Anatomic alignment post total right knee arthroplasty. Good contact between prosthetic an d underlying bone. Expected soft tissue postoperative change. IMPRESSION: Anatomic alignment post total right knee arthroplasty. The above report was generated using voice recognition software. It may contain grammatical, syntax or spelling errors. Electronically signed by: Kerwin Arriaga M.D. 07/30/2018 10:51 AM
[2018-07-30] MEDS ORDERED: HYDROmorphone INJ 1 MG/ML SYRINGE ONE (11:09)
[2018-07-30] MEDS: KETOROLAC TROMETHAMINE 15 MG/ML VIAL IV SCH ×3 (11:28→23:22)
--- NOTE | 2018-07-30 11:45 | Consultation ---
Date of Consultation July 30, 2018 Assessment & Plan (1) Tricompartment osteoarthritis of right knee: - (2) Congestive heart failure: - Monitor strict I/Os s/p surgery as to not volume overload - Continue carvedilol 25 mg BID, asa 81 mg daily, lisinopril 20 mg BID, and verapamil 360 mg HS - resume lasix 40 mg BID tomorrow morning (3) Unstable angina: - Well controlled with cardiac medications as above. (4) Coronary artery disease: - Continue medications as above. - Underwent recent cardiac cath by Dr. Castillo on 07/01/18 1. Severe single-vessel chronic coronary artery disease -100% earlymid RCA chronic total occlusion filling distally via right to right and left to right collaterals 40-50% mid LAD at takeoff of small second diagonal. Second diagonal with 80% ostial stenosis (5) Hypertension: - Continue medications as above. (6) Hyperlipidemia: - Continue atorvastatin 80 mg daily (7) DM (diabetes mellitus): - Home medications include insulin NPH 70/30- 70 U HS prn and 40 U QAM katerine - for now continue ISS with accuchecks. Resume NPH upon discharge. - Likely can resume metformin 100 mg BID tomorrow (8) Diabetic neuropathy: - Stable (9) DVT prophylaxis: History of Present Illness Reason for Consultation: Medical management Requesting Physician: Dr. Villarreal Attending Physician: Robert Villarreal DO History of Present Illness This is a 73 yo M with PMHx of Dm II, HTN, HLD, CHF, CAD, neuropathy, and osteoarthritis who underwent an elective R TKA by Dr. Villarreal on 07/30/18. Allergies Allergy/AdvReac Type Severity Reaction Status Date / Time clindamycin Allergy Mild RASH Verified 07/30/18 05:49 Home Medications Home Medications Medication Instructions Recorded Confirmed Type aspirin [Aspirin Low Dose] 81 mg PO QAM 07/08/18 07/30/18 History atorvastatin 80 mg PO QAM 07/08/18 07/30/18 History budesonide-formoterol [Symbicort] 2 puff INHALATION BID 07/08/18 07/30/18 History carvedilol 25 mg PO BID 07/08/18 07/30/18 History cholecalciferol (vitamin D3) 1,000 unit PO QAM 07/08/18 07/30/18 History [Vitamin D3] cinnamon bark [Cinnamon] 500 mg PO QAM 07/08/18 07/30/18 History cyanocobalamin (vitamin B-12) 1,000 mcg PO QAM 07/08/18 07/30/18 History [Vitamin B-12] doxazosin 2 mg PO HS 07/08/18 07/30/18 History furosemide 40 mg PO BID 07/08/18 07/30/18 History insulin NPH and regular human 40 unit SUBCUT QAM 07/08/18 07/30/18 History [Novolin 70-30 FlexPen U-100] insulin NPH and regular human 70 unit SUBCUT HS PRN 07/08/18 07/08/18 History [Novolin 70-30 FlexPen U-100] lisinopril 20 mg PO BID 07/08/18 07/30/18 History meclizine 25 mg PO HS 07/08/18 07/30/18 History metformin 1,000 mg PO BID 07/08/18 07/30/18 History nitroglycerin 1 tab SUBLINGUAL DIRECTED PRN 07/08/18 07/08/18 History pantoprazole 40 mg PO HS 07/08/18 07/30/18 History potassium chloride 10 meq PO HS 07/08/18 07/30/18 History pramipexole 0.5 mg PO HS 07/08/18 07/30/18 History ranitidine HCl 300 mg PO QAM 07/08/18 07/30/18 History verapamil 360 mg PO HS 07/08/18 07/30/18 History Patient History Family History Brother Family history of diabetes mellitus Sister Family history of diabetes mellitus Mother Family history of diabetes mellitus Social History Preferred Language: Burkin[place] Communication Ability: Effective Beliefs That Will Affect Care: None Current Living Situation: Significant Other Other Information That Helps Us Care for You: No Feels Safe at Home: Yes Safety Concerns: Feels Safe At This Time Smoking Status: Former smoker Hx Alcohol Use: No Hx Substance Use: No Physical Exam Vital Signs (Past 24 Hours): Last Vital Signs Temp 36.4 C L 07/30/18 11:16 Pulse 61 07/30/18 11:16 Resp 15 07/30/18 11:16 BP 130/65 07/30/18 11:16 Pulse Ox 96 07/30/18 11:16
[2018-07-30] MEDS ORDERED: CARBOHYDRATES FOR HYPOGLYCEMIA PO PRN (12:01)
[2018-07-30] MEDS ORDERED: GLUCAGON FOR INJ 1 MG VIAL SQ PRN (12:01)
[2018-07-30] MEDS ORDERED: DEXTROSE 50% 50 ML SYRINGE IV PRN (12:01)
[2018-07-30] MEDS ORDERED: GLUCOSE 10 TABS/TUBE PO PRN (12:01)
[2018-07-30] MEDS ORDERED: GLUCOSE 40% GEL 15 GM TUBE PO PRN (12:01)
[2018-07-30] MEDS ORDERED: PHARMACY GLYCEMIC MGMT CONSULT PRN ×2 (12:26→17:08)
[2018-07-30] MEDS: OXYCODONE HCL IR 5 MG TAB (IMMEDIATE RELEASE) PO PRN (12:46)
[2018-07-30] MEDS: ACETAMINOPHEN 500 MG TAB PO SCH ×2 (13:10→21:20)
[2018-07-30] MEDS: INSULIN ASPART 100 UNITS/ML 3 ML PEN SC SCH ×4 (13:11→23:29)
[2018-07-30] MEDS ORDERED: INSULIN GLARGINE SOLOSTAR 100 UNITS/ML 3 ML PEN SC ONE ×3 (13:15→21:00)
--- NOTE | 2018-07-30 13:25 | Pharmacy Report ---
Glycemic Control Consultation - Date of Service July 30, 2018 - Scope Scope: Glycemic Pharmacist consulted by Daria Valle on for glycemic control and to write orders per [facility] inpatient glycemic control protocol - Objective Weight: 123.831 kg Accuchecks BSG (last 24hrs): 07/30/18 07/30/18 07/30/18 05:53 09:19 11:51 POC Glucose 93 146 H 168 H HbA1c: Hemoglobin A1c 7.3 % (4.5-5.6) H 07/12/18 10:24 - Recent Pertinent Medications Outpatient Anti-diabetic Regimen: * 70/30 40units AM & 70units HS, metformin * A1c = 7.3 % 07/12/18 - Assessment & Plan Assessment & Plan: ASSESSMENT: * I met with Mr. Garibay and bedside. I corroborated his home regimen of 70/30 40u AM and 70u HS. He did not take any insulin this AM. He is unbeknownst to the pharmacy glycemic service. PMHx consistent with CHF, Unstable angina, HTN, CAD, DM-II. His outpt glycemic management is optimal as evidenced by his A1C of 7.3%. * He is POD:0 R TKA and did receive 8mg PO DXM pre-operatively. Minimal other RF to confer insulin resistance at this juncture. PLAN FOR INPATIENT GLYCEMIC CONTROL: * Holding outpatient oral diabetes medications * Basal insulin * Lantus 30 units x1 as soon as he gets to the floor, then lantus scale X1 tonight * give 20 units <140mg/dL * give 30 units 140-180mg/dL * give 40 units >180mg/dL * Bolus insulin * NovoLog per scale ACHS or Q6hrs while NPO * Goal Range: Low 110 mg/dL - High 140 mg/dL * Correction Factor: 15 mg/dL/unit * Nutritional / Prandial insulin per carb ratio of 1 unit per 4 grams CHO consumed * will add 00,04 checks to aid in achieving euglycemia * * Please note that the plan above was derived based on current level of insulin resistance and hospital stress. These recommendations are appropriate for inpatient admission only. Plan of care upon discharge will need to be reassessed to avoid potential outpatient hypo/hyperglycemia. Thank you.
--- NOTE | 2018-07-30 14:03 | Consultation ---
Date of Consultation July 30, 2018 Assessment & Plan (1) S/P total knee arthroplasty: Post op day# 0 S/P R TKA by Dr Phil PACHECO#5ml Doing well post op with pain controlled -pain management per ortho -wound management per ortho -PT/OT as appropriate -DVT prophylaxis per ortho - SCDs, ASA BID -incentive spirometry -monitor H&H for acute blood loss anemia (2) Restrictive lung disease: Follows with Dr Gregg -continue symbicort (3) Diabetes mellitus, type II: A1c: 7.3 on 07/12/18 Glucose: 168 post op -hold metformin -hold home novolin 70/30 -Novolog Lantus sliding scale per protocol (4) Congestive heart failure: Hx chronic diastolic dysfunction Hx Echo 2017: EF: 60-65%, grade I diastolic dysfunction -hold lasix and re-evaluate tomorrow -limit post op IVF to 1L, pt is eating and drinking well (5) Coronary artery disease: Hx cardiac cath 06/2018: Chronic total occlusion of RCA. 40-50% stenosis at mid LAD at takeoff of small second Dx. Second Dx with 80% ostial stenosis. -continue ASA, statin, coreg (6) Hypertension: Stable -continue verapamil, coreg -hold lisinopril and re-evaluate tomorrow (7) Hyperlipidemia: -continue atorvastatin (8) AGUSTIN (obstructive sleep apnea): -CPAP HS (9) GERD (gastroesophageal reflux disease): -continue PPI, H2 lisseth as needed (10) RLS (restless legs syndrome): -continue mirapex DVT Prophylaxis -SCDs and ASA BID per ortho Disposition per primary Follows with Dr Luna for routine care Pt was seen with Dr Hadley. See addendum Supervising Physician Co-Signing Physician Notes I have seen and examined the patient and have discussed the case with the provider above. I agree with the assessment and plan as stated. DO Jomar History of Present Illness Reason for Consultation: Post op medical management Attending Physician: Robert Villarreal DO History of Present Illness Pt is 73 y/o F with PMH insulin dependent DM II, HTN, dyslipidemia, CAD, diastolic congestive heart failure, AGUSTIN, RLS, restrictive lung disease seen in medical consultation s/p R TKA today. Post op pt is doing well. Denies pain currently states still has leg numbness. Has not urinated yet since surgery. Eating and drinking well since surgery. Denies DAMON, dizziness, CP, SOB, abdominal pain, N/V, neck pain, palpitations, cough, sore throat, choking, rhinorrhea, rashes. Allergies Allergy/AdvReac Type Severity Reaction Status Date / Time clindamycin Allergy Mild RASH Verified 07/30/18 05:49 Home Medications Home Medications Medication Instructions Recorded Confirmed Type aspirin [Aspirin Low Dose] 81 mg PO QAM 07/08/18 07/30/18 History atorvastatin 80 mg PO PM 07/08/18 07/30/18 History budesonide-formoterol [Symbicort] 2 puff INHALATION BID 07/08/18 07/30/18 History carvedilol 25 mg PO BID 07/08/18 07/30/18 History cholecalciferol (vitamin D3) 1,000 unit PO QAM 07/08/18 07/30/18 History [Vitamin D3] cinnamon bark [Cinnamon] 500 mg PO QAM 07/08/18 07/30/18 History cyanocobalamin (vitamin B-12) 1,000 mcg PO QAM 07/08/18 07/30/18 History [Vitamin B-12] doxazosin 2 mg PO HS 07/08/18 07/30/18 History furosemide 40 mg PO BID 07/08/18 07/30/18 History insulin NPH and regular human 40 unit SUBCUT QAM 07/08/18 07/30/18 History [Novolin 70-30 FlexPen U-100] insulin NPH and regular human 70 unit SUBCUT HS PRN 07/08/18 07/08/18 History [Novolin 70-30 FlexPen U-100] lisinopril 20 mg PO BID 07/08/18 07/30/18 History metformin 1,000 mg PO BID 07/08/18 07/30/18 History nitroglycerin 1 tab SUBLINGUAL DIRECTED PRN 07/08/18 07/08/18 History pantoprazole 40 mg PO HS 07/08/18 07/30/18 History potassium chloride 10 meq PO HS 07/08/18 07/30/18 History pramipexole 0.5 mg PO HS 07/08/18 07/30/18 History ranitidine HCl 300 mg PO HS PRN 07/08/18 07/30/18 History verapamil 360 mg PO DAILY 07/08/18 07/30/18 History Patient History Medical History Exertional dyspnea (Chronic) Worsening exertional dyspnea. Had cardiac cath last week to evaluate for cardiac cause. Ruled non-cardiac, likely 2/2 obesity and/or COPD. DJD (degenerative joint disease) of knee (Chronic) Carpal tunnel syndrome on both sides (Chronic) COPD (chronic obstructive pulmonary disease) (Chronic) PFTs 05/2018 c/w air trapping. Restrictive lung disease (Chronic) RLS (restless legs syndrome) (Chronic) AGUSTIN (obstructive sleep apnea) (Chronic) GERD (gastroesophageal reflux disease) (Chronic) Diabetes mellitus, type II (Chronic) Hypertension (Chronic) Coronary artery disease (Chronic) Chronic total occlusion of RCA. 40-50% stenosis at mid LAD at takeoff of small second Dx. Second Dx with 80% ostial stenosis. (Per cardiac cath 06/2018) Hyperlipidemia (Chronic) Congestive heart failure (Chronic) DM (diabetes mellitus) (Chronic) IDDM, A1C 7.3% 07/12 Diabetic neuropathy (Chronic) Diabetic peripheral neuropathy associated with type 2 diabetes mellitus (Chronic) History of cancer abdominal - had surgery at [facility] - 2017 Surgical History History of cardiac cath (Chronic) 2010, no stents 07/01/18, no stents -- chronic total occlusion of RCA. History of meniscectomy of left knee (Chronic) History of meniscectomy of right knee (Chronic) Hx of elbow surgery (Chronic) right and left H/O colonoscopy (Chronic) H/O esophagogastroduodenoscopy (Chronic) S/P angioplasty with stent (Chronic) Family History Brother Family history of diabetes mellitus Sister Family history of diabetes mellitus Mother Family history of diabetes mellitus Social History Communication Ability: Effective Beliefs That Will Affect Care: None Current Living Situation: Significant Other Other Information That Helps Us Care for You: No Feels Safe at Home: Yes Safety Concerns: Feels Safe At This Time Smoking Status: Former smoker Hx Alcohol Use: No Hx Substance Use: No Review of Systems As per HPI, other systems negative Physical Exam Vital Signs (Past 24 Hours): Last Vital Signs Temp 36.6 C 07/30/18 13:14 Pulse 74 07/30/18 13:14 Resp 18 07/30/18 13:14 BP 162/75 H 07/30/18 13:14 Pulse Ox 96 07/30/18 13:14 Physical Exam: General: no distress, obese Head: normocephalic, atraumatic Eyes: conjunctiva non-injected, anicteric ENT: normal inspection external ears, nose, mucous membranes moist Neck: supple, trachea midline Lungs: clear, no respiratory distress, no wheezing/rhonchi/rales CV: RRR, no murmur Abd: normal BS, soft, non-tender Ext: R Knee: surgical dressing in place is dry, drain intact with serosangenous drainage, no calf tenderness Neuro: A&O x 3, no focal deficits noted, normal affect Skin: warm, dry
[2018-07-30] MEDS: CEFAZOLIN 2000MG 2,000 MG/15 ML SYR IV SCH ×2 (14:44→22:37)
[2018-07-30] MEDS ORDERED: FUROSEMIDE 40 MG TAB PO SCH (17:00)
[2018-07-30] MEDS ORDERED: VERAPAMIL HCL 180 MG TABCR PO SCH (21:00)
[2018-07-30] MEDS ORDERED: MECLIZINE HCL 25 MG TAB PO SCH (21:00)
[2018-07-30] MEDS ORDERED: POTASSIUM CHLORIDE 10 MEQ TABCR PO SCH (21:00)
[2018-07-30] MEDS: CARVEDILOL 25 MG TAB PO SCH (21:18)
[2018-07-30] MEDS: DOCUSATE SODIUM 100 MG CAP PO SCH (21:18)
[2018-07-30] MEDS: DOXAZosin MESYLATE TAB 2 MG TAB PO SCH (21:18)
[2018-07-30] MEDS: ASPIRIN 81 MG ECTAB PO SCH (21:18)
[2018-07-30] MEDS: PANTOprazole 40 MG TAB PO SCH (21:19)
[2018-07-30] MEDS: PRAMIPEXOLE DIHYDROCHLO 0.5 MG TAB PO SCH (21:19)
[2018-07-30] MEDS: SENNA 8.6 MG TAB PO SCH (21:19)
[2018-07-30] MEDS: BUDESONIDE/FORMOTEROL FUMARATE 160/4.5 60 PUFFS/INHALER INH SCH (21:20)
[2018-07-31] MEDS: INSULIN ASPART 100 UNITS/ML 3 ML PEN SC SCH ×5 (04:15→22:14)
[2018-07-31] MEDS: ACETAMINOPHEN 500 MG TAB PO SCH ×3 (05:27→22:08)
[2018-07-31] MEDS: KETOROLAC TROMETHAMINE 15 MG/ML VIAL IV SCH (05:28)
[2018-07-31 06:59] LABS: Hematocrit (blood only) 24.8 % (42-52); Hemoglobin 8.1 g/dL (14.0-18.0); Mean Corpuscular Hgb Conc 32.7 g/dL (32-36); Mean Corpuscular Volume 83.2 fL (80-100); Mean Platelet Volume 9.8 fL (7.4-10.4); Platelet Count 181 K/uL (130-400); RDW Coefficient of Variation 14.1 % (11.5-14.5); RDW Standard Deviation 43.4 fL (36.4-46.3); Red Blood Count 2.98 M/uL (4.7-6.1)
--- NOTE | 2018-07-31 07:01 | Orthopedic Progress Note ---
Date of Service July 31, 2018 Assessment & Plan (1) Status post total right knee replacement: POD #1 s/p Right TKA pt/ot dvt proph with [facility]AN/SCD/ASA plan for d/c to [facility] when stable Subjective POD #1 s/p right tka denies CP/SOB denies Fever/Chills Denies N/V pain currently 08/28 Physical Exam Vital Signs (Past 24 Hours): Last Vital Signs Temp 36.4 C L 07/31/18 04:00 Pulse 71 07/31/18 04:00 Resp 16 07/31/18 04:00 BP 146/64 H 07/31/18 04:00 Pulse Ox 97 07/31/18 04:00 Constitutional: WD/WN, vitals as above no acute distress Musculoskeletal: Right Knee: NVDI, calf SNT, negative candy sign. DP palpable, able to wiggle toes/ankle movement without difficulty. dressing clean dry and intact. Vital Signs Temp 36.4 C L 07/31/18 04:00 Pulse 71 07/31/18 04:00 Resp 16 07/31/18 04:00 BP 146/64 H 07/31/18 04:00 Pulse Ox 97 07/31/18 04:00 Intake & Output 07/30/18 07/30/18 07/31/18 06:59 18:59 06:59 Intake Total 709.4 / 709.4 1089 / 2089 1000 / 2089 Output Total 470 / 1970 1500 / 1970 Balance 709.4 / 709.4 619 / 119 -500 / 119 Weight 123.831 kg 123.831 kg Intake: IV 709.4 / 709.4 189 / 1189 1000 / 1189 Ancef 3000MG 6 5 ml @ 130 mls/hr 65 / 65 IV PREOP GELA R x#:[id number] Lr 1,000 ml @ 15 mls/hr IV . 599.4 / 599.4 14 / 14 Q24H GELA Rx#:[id number] Nss 1000ML 1,0 00 ml @ 100 mls/ 1000 / 1000 hr IV .Q10H SC H Rx#:[id number] Cyklokapron 1, 000 mg In Sodium 110 / 110 110 / 110 Chloride 100 m l @ 660 mls/hr IV 0630 GELA Rx#:[id number] IV Perioperative 900 / 900 Output: Urine 1150 / 1150 Estimated Blood Loss 5 / 5 Drain Output 465 / 815 350 / 815 Right Knee 465 / 815 350 / 815 Other: # Unmeasured Voi ds 1 Results & Data Laboratory Results labs pending Diagnostic Findings XR knee RT 2V routine CLINICAL HISTORY: Surgical Post Op postoperative evaluation COMPARISON: None. DISCUSSION: Anatomic alignment post total right knee arthroplasty. Good contact between prosthetic and underlying bone. Expected soft tissue postoperative change. IMPRESSION: Anatomic alignment post total right knee arthroplasty.
[2018-07-31 07:39] LABS: BUN Creatinine Ratio 13.6 (10-20); Calcium 7.8 mg/dl (8.5-10.1); Creatinine Clr Calc Pharmacy 54.5 ml/min; Est GFR (African American) 49.2; Est GFR (Non-African American) 42.5; Potassium 4.3 mmol/L (3.5-5.1)
--- NOTE | 2018-07-31 07:57 | Anesthesiology Progress Note ---
Date of Service July 31, 2018 Anesthesia Post Procedure Vital Signs Vital Signs: Temp Pulse Pulse Pulse Resp BP Pulse Ox 07/31/18 07:33 61 16 136/66 97 07/31/18 04:00 36.4 C L 71 16 146/64 H 97 07/30/18 22:53 36.6 C 60 16 123/56 L 94 07/30/18 21:13 57 L 148/66 H 07/30/18 20:00 36.5 C 56 L 18 159/68 H 94 07/30/18 15:30 36.5 C 75 18 153/76 H 96 07/30/18 13:14 36.6 C 74 18 162/75 H 96 07/30/18 12:20 36.7 C 63 17 137/69 98 07/30/18 11:16 36.4 C L 61 15 130/65 96 07/30/18 10:49 36.8 C 64 14 134/70 95 07/30/18 10:20 36.9 C 65 18 126/71 98 07/30/18 10:10 36.9 C 64 18 129/65 97 07/30/18 10:00 36.9 C 66 18 129/65 97 07/30/18 09:50 36.9 C 65 18 131/61 97 07/30/18 09:40 66 18 125/58 L 98 07/30/18 09:30 66 18 129/63 97 07/30/18 09:20 66 18 125/61 98 07/30/18 09:14 37.1 C 65 18 111/55 L 96 Pain Intensity Right Knee: Pain Intensity: 2 Notes Mental Status: alert / awake / arousable and participated in evaluation Patient Amnestic to Procedure: Yes Nausea / Vomiting: adequately controlled Pain: adequately controlled Airway Patency, RR, SpO2: stable & adequate BP & HR: stable & adequate Hydration State: stable & adequate Anesthetic Complications: no major complications apparent
[2018-07-31] MEDS: CEFAZOLIN 2000MG 2,000 MG/15 ML SYR IV SCH ×3 (08:38→23:53)
[2018-07-31] MEDS: VERAPAMIL HCL 180 MG TABCR PO SCH (08:39)
[2018-07-31] MEDS: MULTIVITAMIN TAB PO SCH (08:39)
[2018-07-31] MEDS: ASPIRIN 81 MG ECTAB PO SCH ×2 (08:39→22:07)
[2018-07-31] MEDS: CHOLECALCIFEROL 1,000 UNITS TAB PO SCH (08:39)
[2018-07-31] MEDS: CARVEDILOL 25 MG TAB PO SCH ×2 (08:39→22:10)
[2018-07-31] MEDS: DOCUSATE SODIUM 100 MG CAP PO SCH ×2 (08:40→22:06)
[2018-07-31] MEDS: ATORVASTATIN 40 MG TAB PO SCH (08:40)
[2018-07-31] MEDS: OXYCODONE HCL IR 5 MG TAB (IMMEDIATE RELEASE) PO PRN ×3 (08:43→19:05)
[2018-07-31] MEDS: INSULIN GLARGINE SOLOSTAR 100 UNITS/ML 3 ML PEN SC SCH ×2 (08:45→22:13)
[2018-07-31] MEDS: BUDESONIDE/FORMOTEROL FUMARATE 160/4.5 60 PUFFS/INHALER INH SCH ×2 (08:48→22:07)
[2018-07-31] MEDS ORDERED: LISINOPRIL 20 MG TAB PO SCH ×2 (09:00→10:00)
--- NOTE | 2018-07-31 09:33 | Hospitalist Progress Note ---
Date of Service July 31, 2018 Assessment & Plan (1) S/P total knee arthroplasty: Post op day# 1 S/P R TKA by Dr Villarreal Procedure: EBL#5ml Pain moderately controlled with oxycodone. No BM yet -bowel regimen -pain management per ortho -wound management per ortho -PT/OT as appropriate -DVT prophylaxis per ortho - SCDs, ASA BID -incentive spirometry -Pt had 815ml output from hemovac over past 24 hours. Hemovac has been discontinued today. Today Hgb: 8.1 from 11 pre-op. Monitor H&H, transfuse as needed. (2) Restrictive lung disease: Follows with Dr Gregg No SOB, pulse ox 97% on RA -continue symbicort (3) Diabetes mellitus, type II: A1c: 7.3 on 07/12/18 Glucose: 138-190 -hold metformin -hold home novolin 70/30 -Novolog Lantus sliding scale per protocol (4) Congestive heart failure: Hx chronic diastolic dysfunction Hx Echo 2017: EF: 60-65%, grade I diastolic dysfunction -lasix was on hold POD #0. Will restart half of home dose at lasix 40mg once daily and re-evaluate tomorrow (on twice daily dosing at home) -Cr: 1.58 from 1.34 pre-op, monitor renal functions (5) Coronary artery disease: Hx cardiac cath 06/2018: Chronic total occlusion of RCA. 40-50% stenosis at mid LAD at takeoff of small second Dx. Second Dx with 80% ostial stenosis. -continue ASA, statin, coreg (6) Hypertension: Stable -continue verapamil, coreg -lisinopril was held day of surgery on 07/30/18. Today 07/31/18 Cr: 1.58 from 1.34 pre-op. Will resume once daily lisinopril (pt on lisinopril 20mg BID at home) and re-evaluate renal functions tomorrow (7) Hyperlipidemia: -continue atorvastatin (8) AGUSTIN (obstructive sleep apnea): -CPAP HS (9) GERD (gastroesophageal reflux disease): -continue PPI, H2 lisseth as needed (10) RLS (restless legs syndrome): -continue mirapex DVT Prophylaxis -SCDs and ASA BID per ortho Disposition per primary Follows with Dr Luna for routine care Pt was seen with Dr Hadley. See addendum Supervising Physician Co-Signing Physician Notes I have seen and examined the patient and have discussed the case with the provider above. I agree with the assessment and plan as stated. DO Jomar Subjective Pt seen and examined. Sitting in bedside chair Reports had some moderate R knee pain this morning, had oxycodone this morning and reports pain is improving. States is eating and drinking well. Denies nausea or vomiting. +Flatulence, no BM yet. Urinating without difficulty. Denies fever/chills, DAMON, dizziness, syncope, CP, SOB, cough, sore throat, choking, abdominal pain, paresthesias, increased extremity edema, rashes, urinary symptoms. Physical Exam Vital Signs (Past 24 Hours): Last Vital Signs Temp 36.4 C L 07/31/18 04:00 Pulse 61 07/31/18 07:33 Resp 16 07/31/18 07:33 BP 136/66 07/31/18 07:33 Pulse Ox 97 07/31/18 07:33 Physical Exam: General: no distress, obese Head: normocephalic, atraumatic Eyes: conjunctiva non-injected, anicteric ENT: normal inspection external ears, nose, mucous membranes moist Neck: supple, trachea midline Lungs: clear, no respiratory distress, no wheezing/rhonchi/rales CV: RRR, 1+ pretibial edema Abd: normal BS, soft, distended secondary to adipose tissue, non-tender Ext: no cyanosis, no calf tenderness, Right knee with dressing intact, some flexion and extension of knee, distal pulses intact, sensation to light touch intact. Neuro: A&O x 3, no focal deficits noted, normal affect Skin: warm, dry Results & Data Laboratory Results Short CBC 07/12/18 07/30/18 07/30/18 Range/Units 10:59 05:53 09:19 WBC (4.8-10.8) K/uL Hgb (14.0-18.0) g/dL Hct (42-52) % Plt Count (130-400) K/uL Creatinine 1.34 (0.6-1.4) mg/dl Est GFR (Non-Af Amer) 51.8 Glucose 88 (70-99) mg/dl POC Glucose 93 146 H (70-99) 07/30/18 07/30/18 07/30/18 Range/Units 11:51 17:17 20:59 WBC (4.8-10.8) K/uL Hgb (14.0-18.0) g/dL Hct (42-52) % Plt Count (130-400) K/uL Creatinine (0.6-1.4) mg/dl Est GFR (Non-Af Amer) Glucose (70-99) mg/dl POC Glucose 168 H 185 H 190 H (70-99) 07/30/18 07/31/18 07/31/18 Range/Units 23:28 04:02 06:39 WBC 9.50 (4.8-10.8) K/uL Hgb 8.1 L (14.0-18.0) g/dL Hct 24.8 L (42-52) % Plt Count 181 (130-400) K/uL Creatinine (0.6-1.4) mg/dl Est GFR (Non-Af Amer) Glucose (70-99) mg/dl POC Glucose 160 H 153 H (70-99) 07/31/18 07/31/18 Range/Units 06:39 08:17 WBC (4.8-10.8) K/uL Hgb (14.0-18.0) g/dL Hct (42-52) % Plt Count (130-400) K/uL Creatinine 1.58 H (0.6-1.4) mg/dl Est GFR (Non-Af Amer) 42.5 Glucose 138 H (70-99) mg/dl POC Glucose 145 H (70-99) BMP 07/31/18 06:39 Sodium 136 Potassium 4.3 Chloride 106 Carbon Dioxide 24 BUN 22 H Creatinine 1.58 H Glucose 138 H Calcium 7.8 L
[2018-07-31] MEDS: FUROSEMIDE 40 MG TAB PO SCH (10:07)
[2018-07-31] MEDS ORDERED: SODIUM CHLORIDE 0.9% 1000ML 1,000 ML IV SCH (12:00)
[2018-07-31] MEDS: MoRPHine SULFATE CR 15 MG TABCR PO SCH ×2 (12:43→23:53)
--- NOTE | 2018-07-31 13:40 | Pharmacy Report ---
Pharmacy Glycemic Short Note 2 - Date of Service July 31, 2018 - Glycemic Short BSG Results (Last 24 hours): 07/30/18 07/30/18 07/30/18 17:17 20:59 23:28 Glucose POC Glucose 185 H 190 H 160 H 07/31/18 07/31/18 07/31/18 04:02 06:39 08:17 Glucose 138 H POC Glucose 153 H 145 H 07/31/18 11:51 Glucose POC Glucose 192 H OUTPATIENT ANTIDIABETIC REGIMEN: * 70/30 40 units AM & 70 units HS, metformin * A1c = 7.1 % 08/15/18 ASSESSMENT: * Mr. Garibay is POD #1 s/p R TKA. * He received 102 units of insulin yesterday, which is similar to his home requirements of 110 units per day. * Fasting BSG is near goal. Will continue to dose Lantus per BSG scale. * Post prandial BSGs remain above goal. I am uncertain if this is due to lingering effect of dexamethasone (in this case, hyperglycemia should resolve by this evening) or if Novolog parameters need tightened. If improvement is not noted with dinner BSG, then Novolog carb ratio will be changed to 3. PLAN FOR INPATIENT GLYCEMIC CONTROL: * Holding outpatient oral diabetes medications * Basal insulin * Lantus per scale SQ BID * give 20 units < 110 mg/dL * give 30 units 110-140 mg/dL * give 36 units > 140 mg/dL * Bolus insulin * NovoLog per scale ACHS or Q6hrs while NPO * Goal Range: Low 110 mg/dL - High 140 mg/dL * Correction Factor: 15 mg/dL/unit * Nutritional / Prandial insulin per carb ratio of 1 unit per 4 grams CHO consumed PLAN FOR DISCHARGE: * A1c of 7.1% is near goal for patient based on age and co morbidities * Continue home regimen on discharge with dose titration as needed per outpatient provider
[2018-07-31] MEDS ORDERED: POLYETHYLENE (MIRALAX) 17 GM PACK PO PRN (14:42)
[2018-07-31] MEDS ORDERED: POLYETHYLENE (MIRALAX) 17 GM PACK PO ONE (14:42)
[2018-07-31] MEDS ORDERED: BISACODYL 10 MG SUPP PR PRN (14:42)
[2018-07-31] MEDS ORDERED: CeleBREX 200 MG CAP PO SCH (21:00)
[2018-07-31] MEDS: DOXAZosin MESYLATE TAB 2 MG TAB PO SCH (22:06)
[2018-07-31] MEDS: PRAMIPEXOLE DIHYDROCHLO 0.5 MG TAB PO SCH (22:07)
[2018-07-31] MEDS: SENNA 8.6 MG TAB PO SCH (22:07)
[2018-07-31] MEDS: PANTOprazole 40 MG TAB PO SCH (22:07)
[2018-08-01] MEDS: OXYCODONE HCL IR 5 MG TAB (IMMEDIATE RELEASE) PO PRN ×2 (05:57→10:02)
[2018-08-01] MEDS: ACETAMINOPHEN 500 MG TAB PO SCH ×2 (05:57→13:19)
[2018-08-01 06:40] LABS: Basophils # (auto) 0.01 K/uL (0-0.2); Basophils % (auto) 0.1 %; Eosinophils % (auto) 1.3 %; Hematocrit (blood only) 26.2 % (42-52); Hemoglobin 8.4 g/dL (14.0-18.0); Immature Granulocytes # (auto) 0.02 K/uL (0.00-0.02); Immature Granulocytes % (auto) 0.3 %; Lymphocytes # (auto) 2.76 K/uL (1.2-3.4); Lymphocytes % (auto) 34.7 %; Mean Corpuscular Hgb Conc 32.1 g/dL (32-36); Mean Corpuscular Volume 85.3 fL (80-100); Mean Platelet Volume 10.2 fL (7.4-10.4); Monocytes # (auto) 0.92 K/uL (0.11-0.59); Monocytes % (auto) 11.6 %; Neutrophils # (auto) 4.15 K/uL (1.4-6.5); Platelet Count 195 K/uL (130-400); RDW Coefficient of Variation 14.5 % (11.5-14.5); RDW Standard Deviation 45.4 fL (36.4-46.3); Red Blood Count 3.07 M/uL (4.7-6.1); White Blood Count 7.96 K/uL (4.8-10.8)
[2018-08-01 07:05] LABS: BUN Creatinine Ratio 17.3 (10-20); Calcium 8.1 mg/dl (8.5-10.1); Creatinine Clr Calc Pharmacy 61.6 ml/min; Est GFR (Non-African American) 49.1; Potassium 3.9 mmol/L (3.5-5.1)
[2018-08-01 07:08] LABS: Acanthocytes 1+
[2018-08-01] MEDS: HYDROmorphone INJ 1 MG/ML SYRINGE IV PRN (07:21)
[2018-08-01] MEDS: DOCUSATE SODIUM 100 MG CAP PO SCH ×2 (08:38→20:10)
[2018-08-01] MEDS: MULTIVITAMIN TAB PO SCH (08:38)
[2018-08-01] MEDS: CHOLECALCIFEROL 1,000 UNITS TAB PO SCH (08:38)
[2018-08-01] MEDS: CARVEDILOL 25 MG TAB PO SCH ×2 (08:38→21:19)
[2018-08-01] MEDS: ATORVASTATIN 40 MG TAB PO SCH (08:38)
[2018-08-01] MEDS: POTASSIUM CHLORIDE 10 MEQ TABCR PO SCH (08:39)
[2018-08-01] MEDS: BUDESONIDE/FORMOTEROL FUMARATE 160/4.5 60 PUFFS/INHALER INH SCH ×2 (08:39→21:20)
[2018-08-01] MEDS: FUROSEMIDE 40 MG TAB PO SCH (08:39)
[2018-08-01] MEDS: ASPIRIN 81 MG ECTAB PO SCH ×2 (08:39→21:20)
[2018-08-01] MEDS: LISINOPRIL 20 MG TAB PO SCH (08:40)
[2018-08-01] MEDS: VERAPAMIL HCL 180 MG TABCR PO SCH (08:41)
[2018-08-01] MEDS: INSULIN ASPART 100 UNITS/ML 3 ML PEN SC SCH ×4 (08:42→21:17)
--- NOTE | 2018-08-01 09:27 | Orthopedic Progress Note ---
Date of Service August 01, 2018 Assessment & Plan (1) Status post total right knee replacement: 73 yo male stable POD #2 s/p right TKA 1. Med management 2. DVT prophylaxis- ASA, SCDs 3. PT/OT 4. D/C planning- home w/ HH vs [facility] Subjective Pt resting in bed, states does not feel as well as yesterday, reassured pain frequently worse the 2nd day, per NS pt appeared to have a panic attack Physical Exam Vital Signs (Past 24 Hours): Last Vital Signs Temp 36.6 C 08/01/18 07:16 Pulse 69 08/01/18 07:16 Resp 20 08/01/18 07:16 BP 161/70 H 08/01/18 07:16 Pulse Ox 95 08/01/18 07:16 Physical Exam: Toes mobile, N/V/I, Prineo dressing in place Results & Data Laboratory Results 08/01/18 08/01/18 08/01/18 Range/Units 07:59 06:03 06:03 WBC 7.96 (4.8-10.8) K/uL RBC 3.07 L (4.7-6.1) M/uL Hgb 8.4 L (14.0-18.0) g/dL Hct 26.2 L (42-52) % MCV 85.3 (80-100) fL MCH 27.4 (25-34) pg MCHC 32.1 (32-36) g/dL RDW Std Deviation 45.4 (36.4-46.3) fL RDW Coeff of Shawn 14.5 (11.5-14.5) % Plt Count 195 (130-400) K/uL MPV 10.2 (7.4-10.4) fL Immature Gran % (Auto) 0.3 % Neut % (Auto) 52.0 % Lymph % (Auto) 34.7 % Schleicher % (Auto) 11.6 % Eos % (Auto) 1.3 % Baso % (Auto) 0.1 % Immature Gran # (Auto) 0.02 (0.00-0.02) K/uL Neut # (Auto) 4.15 (1.4-6.5) K/uL Lymph # (Auto) 2.76 (1.2-3.4) K/uL Schleicher # (Auto) 0.92 H (0.11-0.59) K/uL Eos # (Auto) 0.10 (0-0.5) K/uL Baso # (Auto) 0.01 (0-0.2) K/uL Acanthocytes (Spur) 1+ Sodium 140 (136-145) mmol/L Potassium 3.9 (3.5-5.1) mmol/L Chloride 107 (98-107) mmol/L Carbon Dioxide 27 (21-32) mmol/L Anion Gap 6.0 (3-11) BUN 24 H (7-18) mg/dl Creatinine 1.40 (0.6-1.4) mg/dl Est Cr Clr Drug Dosing 61.6 ml/min Est GFR ( Amer) 57.0 Est GFR (Non-Af Amer) 49.1 BUN/Creatinine Ratio 17.3 (10-20) Glucose 101 H (70-99) mg/dl POC Glucose 117 H (70-99) Calcium 8.1 L (8.5-10.1) mg/dl 07/31/18 07/31/18 07/31/18 Range/Units 21:00 16:50 11:51 WBC (4.8-10.8) K/uL RBC (4.7-6.1) M/uL Hgb (14.0-18.0) g/dL Hct (42-52) % MCV (80-100) fL MCH (25-34) pg MCHC (32-36) g/dL RDW Std Deviation (36.4-46.3) fL RDW Coeff of Shawn (11.5-14.5) % Plt Count (130-400) K/uL MPV (7.4-10.4) fL Immature Gran % (Auto) % Neut % (Auto) % Lymph % (Auto) % Schleicher % (Auto) % Eos % (Auto) % Baso % (Auto) % Immature Gran # (Auto) (0.00-0.02) K/uL Neut # (Auto) (1.4-6.5) K/uL Lymph # (Auto) (1.2-3.4) K/uL Schleicher # (Auto) (0.11-0.59) K/uL Eos # (Auto) (0-0.5) K/uL Baso # (Auto) (0-0.2) K/uL Acanthocytes (Spur) Sodium (136-145) mmol/L Potassium (3.5-5.1) mmol/L Chloride (98-107) mmol/L Carbon Dioxide (21-32) mmol/L Anion Gap (3-11) BUN (7-18) mg/dl Creatinine (0.6-1.4) mg/dl Est Cr Clr Drug Dosing ml/min Est GFR ( Amer) Est GFR (Non-Af Amer) BUN/Creatinine Ratio (10-20) Glucose (70-99) mg/dl POC Glucose 92 164 H 192 H (70-99) Calcium (8.5-10.1) mg/dl
--- NOTE | 2018-08-01 09:48 | Pharmacy Report ---
Pharmacy Glycemic Short Note 2 - Date of Service August 01, 2018 - Glycemic Short BSG Results (Last 24 hours): 07/31/18 07/31/18 07/31/18 11:51 16:50 21:00 Glucose POC Glucose 192 H 164 H 92 08/01/18 08/01/18 06:03 07:59 Glucose 101 H POC Glucose 117 H OUTPATIENT ANTIDIABETIC REGIMEN: * 70/30 40 units AM & 70 units HS, metformin * A1c = 7.1 % 08/15/18 ASSESSMENT: 08/01 * Type 2 diabetic, reasonably well controlled with out-pt regimen per A1c * POD #2 s/p R TKA * Glycemic control improved over last 24 hrs with current insulin orders * Will reduce insulin doses today as I believe he will likely be more insulin sensitive now that he is POD #2 and no steroids were given in last 48 hrs. * Fasting BSG 117 this AM w/ 40 units Lantus on board * Post-prandial BSGs well controlled w/ current CF and CR yesterday however BSG did drop to less than 100 by the end of the day - a reduction in prandial insulin dose may be necessary PLAN FOR INPATIENT GLYCEMIC CONTROL: * Holding outpatient oral diabetes medications * Basal insulin (dose reduction) * Lantus per scale SQ BID * give 14 units < 110 mg/dL * give 18 units 110-180 mg/dL * give 22 units > 180 mg/dL * Bolus insulin (dose reduction) * NovoLog per scale ACHS or Q6hrs while NPO * Goal Range: Low 110 mg/dL - High 140 mg/dL * Correction Factor: 15 mg/dL/unit * Nutritional / Prandial insulin per carb ratio of 1 unit per 5 grams CHO consumed PLAN FOR DISCHARGE: * A1c of 7.1% is near goal for patient based on age and co morbidities * Continue home regimen on discharge with dose titration as needed per outpatient provider
[2018-08-01] MEDS: ONDANSETRON INJ 2 MG/ML 2 ML VIAL IV PRN ×2 (10:33→14:53)
[2018-08-01] MEDS ORDERED: INSULIN GLARGINE SOLOSTAR 100 UNITS/ML 3 ML PEN SC SCH (11:30)
[2018-08-01] MEDS: MoRPHine SULFATE CR 15 MG TABCR PO SCH (12:27)
[2018-08-01] MEDS ORDERED: TRAMADOL HCL 50 MG TABLET PO PRN (13:17)
[2018-08-01] MEDS ORDERED: ONDANSETRON INJ 2 MG/ML 2 ML VIAL IV STA (14:51)
--- NOTE | 2018-08-01 15:04 | Hospitalist Progress Note ---
Date of Service August 01, 2018 Assessment & Plan (1) Emesis: Nausea and emesis-normal in appearance. Likely related to mutliple rounds of high dose narcotics including long-acting MS Contin. Not on chronic narcotics at home. Discussed plan for pain control with Ortho and will proceed with one dose of Toradol IV now. Will hold lisinopril and Lasix in setting of NSAID administration and now vomiting. NSS x 2 bags slowly to avoid dehydration. Will continue with Tylenol, converting to IV scheduled. Cont with oxy PRN and Dilaudid PRN. Will need to give some time to allow MS contin and other narcotics to metabolize. Cont Zofran PRN for nausea support. (2) CKD (chronic kidney disease), stage III: At baseline renal function. (3) S/P total knee arthroplasty: Post op day# 2 S/P R TKA by Dr Villarreal Procedure: EBL#5ml Adjusting pain meds as above. Cont bowel regimen but hold for loose stool. PT/OT Cont incentive spirometry Wound management all per Ortho H/H reduced post-op but improved today (4) Diabetes mellitus, type II: Controlled, ISS/Lantus. Hold Novolog if not eating. (5) Congestive heart failure: compensated, holding lasix in setting of vomiting. (6) Coronary artery disease: Hx cardiac cath 06/2018: Chronic total occlusion of RCA. 40-50% stenosis at mid LAD at takeoff of small second Dx. Second Dx with 80% ostial stenosis. -continue ASA, statin, coreg (7) Hypertension: Lisinopril held as above. Cont pain control efforts as above. (8) Hyperlipidemia: -continue atorvastatin (9) AGUSTIN (obstructive sleep apnea): -CPAP HS. Recommend re-evaluation by Sleep medicine as outpatient nonurgently. (10) GERD (gastroesophageal reflux disease): -continue PPI, H2 lisseth as needed (11) RLS (restless legs syndrome): -continue mirapex DVT Prophylaxis -SCDs and ASA BID per ortho Disposition per primary Follows with Dr Luna for routine care Pt was seen with Dr Hadley. See addendum (12) Restrictive lung disease: Follows with Dr Gregg No SOB, pulse ox 97% on RA -continue symbicort (13) DVT prophylaxis: ASA 81mg PO BID per Ortho Full Dispo-uncertain Hue Hadley DO [facility] Hospitalist Subjective +nausea +pain in knee uncontrolled MS Ansley started yesterday around noon had some pursed lip breathing upon awakening, which is normal for him he was notably breathing without issues while asleep maintaining normal oxygen saturations readings on room air. evaluated later and had profuse vomiting after 3rd dose of MSContin, 5 doses of oxycodone 10mg and Dilaudid 1mg IV this morning. He is not on narcotics at home. Physical Exam Vital Signs (Past 24 Hours): Last Vital Signs Temp 36.7 C 08/01/18 13:35 Pulse 67 08/01/18 13:35 Resp 18 08/01/18 13:35 BP 148/72 H 08/01/18 13:35 Pulse Ox 95 08/01/18 13:35 CONSTITUTIONAL: WNWD, vitals as above, generally ill-appearing, generalized malaise then later active vomiting. EYES: normal conjuctivae, no scleral icterus ENT: MMM RESPIRATORY: clear to auscultation bilaterally, no crackles, rales or wheezes, normal respiratory effort CARDIOVASCULAR: regular rate and rhythm, S1 and 2 heard without murmurs, gallops or rubs, no JVD, no peripheral edema GASTROINTESTINAL: normal bowel sounds, soft, nontender, nondistended MUSCULOSKELETAL: strength 5/5 throughout, head is normocephalic and atraumatic SKIN: warm and dry, wound on R knee covered with dressing that is c/d/i NEUROLOGIC: CN 2-12 grossly intact, no gross neuro deficit. RLE warm and well- perfused, 2+pulses, sensation intact. PSYCHIATRIC: alert cooperative and oriented to person, place and time. Results & Data Laboratory Results Short CBC 08/01/18 Range/Units 06:03 WBC 7.96 (4.8-10.8) K/uL Hgb 8.4 L (14.0-18.0) g/dL Hct 26.2 L (42-52) % Plt Count 195 (130-400) K/uL BMP 08/01/18 06:03 Sodium 140 Potassium 3.9 Chloride 107 Carbon Dioxide 27 BUN 24 H Creatinine 1.40 Glucose 101 H Calcium 8.1 L Medications Administered Current Inpatient Medications Aspirin (Ecotrin Ectab) 81 mg PO BID GELA Stop: 08/29/18 20:59 Last Admin: 08/01/18 08:39 Dose: 81 mg Documented by: Atorvastatin Calcium (Lipitor) 80 mg PO QAM [facility] Stop: 08/30/18 08:59 Last Admin: 08/01/18 08:38 Dose: 80 mg Documented by: Bisacodyl (Dulcolax) 10 mg IA Q6H PRN PRN Reason: Constipation Stop: 08/29/18 10:34 Budesonide/Formoterol Fumarate (Symbicort 160mcg/4.5mcg) 2 puffs INH BID GELA Stop: 08/29/18 20:59 Last Admin: 08/01/18 08:39 Dose: 2 puffs Documented by: Carvedilol (Coreg) 25 mg PO BID [facility] Stop: 08/29/18 20:59 Last Admin: 08/01/18 08:38 Dose: 25 mg Documented by: Dextrose (Dextrose 50%) 25 - 50 ml IV UD PRN; Protocol PRN Reason: Hypoglycemia Protocol Stop: 08/29/18 12:00 Diphenhydramine HCl (Benadryl Capsule) 25 mg PO Q8H PRN PRN Reason: Itching Stop: 08/29/18 10:34 Docusate Sodium (Colace) 100 mg PO BID GELA Stop: 08/29/18 20:59 Last Admin: 08/01/18 08:38 Dose: 100 mg Documented by: Doxazosin Mesylate (Cardura) 2 mg PO HS [facility] Stop: 08/29/18 20:59 Last Admin: 07/31/18 22:06 Dose: 2 mg Documented by: Furosemide (Lasix) 40 mg PO QAM [facility] Stop: 08/30/18 09:59 Last Admin: 08/01/18 08:39 Dose: 40 mg Documented by: Glucagon (Glucagen) 1 mg SQ UD PRN; Protocol PRN Reason: Hypoglycemia Protocol Stop: 08/29/18 12:00 Glucose (Dex4 Glucose) 4 - 8 tabs PO UD PRN; Protocol PRN Reason: Hypoglycemia Protocol Stop: 08/29/18 12:00 Glucose (Glucose 40%) 15 - 30 gm PO UD PRN; Protocol PRN Reason: Hypoglycemia Protocol Stop: 08/29/18 12:00 Hydromorphone HCl (Dilaudid) 1 mg IV Q4H PRN PRN Reason: Pain Stop: 08/13/18 10:34 Last Admin: 08/01/18 07:21 Dose: 1 mg Documented by: Acetaminophen (Ofirmev) 1,000 mg in 100 mls @ 400 mls/hr IV Q8H [facility] Stop: 08/31/18 15:29 Sodium Chloride (Nss 1000ml) 1,000 mls @ 125 mls/hr IV .Q8H [facility] Stop: 08/02/18 07:14 Insulin Aspart (Novolog Flexpen) 0 units SC ACHS [facility] Stop: 08/29/18 12:59 Last Admin: 08/01/18 12:52 Dose: 5 units Documented by: Insulin Glargine (Lantus Solostar Pen) 0 units SC BID [facility]; Protocol Stop: 08/30/18 08:59 Last Admin: 07/31/18 22:13 Dose: 20 units Documented by: Lisinopril (Zestril) 20 mg PO BID [facility] Stop: 08/31/18 08:59 Last Admin: 08/01/18 08:40 Dose: 20 mg Documented by: Magnesium Hydroxide (Milk Of Magnesia) 30 ml PO Q6H PRN PRN Reason: Constipation Stop: 08/29/18 10:34 Miscellaneous (Carbohydrates For Hypoglycemia) 15 - 30 gm PO UD PRN PRN Reason: Hypoglycemia Treatment Stop: 08/29/18 12:00 Miscellaneous Information (Consult Glycemic Management Pharmacy) 1 ea N/A UD PRN PRN Reason: Consult Stop: 08/29/18 17:07 Multivitamins (Multivitamin Tab) 1 tab PO QAM [facility] Stop: 08/30/18 08:59 Last Admin: 08/01/18 08:38 Dose: 1 tab Documented by: Naloxone HCl (Narcan) 0.1 mg IV Q5M PRN PRN Reason: Oversedation/Resp Depression Stop: 08/29/18 10:34 Nitroglycerin (Nitrostat) 0.4 mg SL UD PRN PRN Reason: Chest Pain Stop: 08/29/18 10:34 Ondansetron HCl (Zofran) 4 mg IV Q6H PRN PRN Reason: Nausea And Vomiting Stop: 08/29/18 10:34 Last Admin: 08/01/18 14:53 Dose: 4 mg Documented by: Oxycodone HCl (Roxicodone Immediate Rel) 5 - 10 mg PO Q4H PRN PRN Reason: Pain Stop: 08/13/18 10:34 Last Admin: 08/01/18 10:02 Dose: 10 mg Documented by: Pantoprazole Sodium (Protonix) 40 mg PO HS [facility] Stop: 08/29/18 20:59 Last Admin: 07/31/18 22:07 Dose: 40 mg Documented by: Polyethylene Glycol (Miralax Powder Packet) 17 gm PO DAILY PRN PRN Reason: Constipation Stop: 08/30/18 14:41 Potassium Chloride (Klor-Con M10) 10 meq PO DAILY [facility] Stop: 08/31/18 08:59 Last Admin: 08/01/18 08:39 Dose: 10 meq Documented by: Pramipexole Dihydrochloride (Mirapex) 0.5 mg PO HS [facility] Stop: 08/29/18 20:59 Last Admin: 07/31/18 22:07 Dose: 0.5 mg Documented by: Ranitidine HCl (Zantac) 300 mg PO PM PRN PRN Reason: Heartburn Stop: 08/29/18 20:59 Sennosides (Senokot) 17.2 mg PO HS [facility] Stop: 08/29/18 20:59 Last Admin: 07/31/18 22:07 Dose: 17.2 mg Documented by: Tramadol HCl (Ultram) 50 - 100 mg PO Q4H PRN PRN Reason: Pain Stop: 08/31/18 13:16 Verapamil HCl (Calan Sr) 360 mg PO DAILY [facility] Stop: 08/30/18 08:59 Last Admin: 08/01/18 08:41 Dose: 360 mg Documented by: Vitamin D (Vitamin D3) 1,000 units PO QAM [facility] Stop: 08/30/18 08:59 Last Admin: 08/01/18 08:38 Dose: 1,000 units Documented by:
[2018-08-01] MEDS ORDERED: KETOROLAC TROMETHAMINE 15 MG/ML VIAL IV ONE (15:12)
[2018-08-01] MEDS: SODIUM CHLORIDE 0.9% 1000ML 1,000 ML IV SCH ×2 (15:31→23:26)
[2018-08-01] MEDS: ACETAMINOPHEN 1,000 MG/100 ML VIAL IV SCH ×2 (15:32→23:25)
[2018-08-01] MEDS: SENNA 8.6 MG TAB PO SCH (20:10)
[2018-08-01] MEDS: INSULIN GLARGINE SOLOSTAR 100 UNITS/ML 3 ML PEN SC SCH (21:16)
[2018-08-01] MEDS: PRAMIPEXOLE DIHYDROCHLO 0.5 MG TAB PO SCH (21:19)
[2018-08-01] MEDS: DOXAZosin MESYLATE TAB 2 MG TAB PO SCH (21:20)
[2018-08-02 06:18] LABS: Hematocrit (blood only) 27.1 % (42-52); Hemoglobin 8.7 g/dL (14.0-18.0); Mean Corpuscular Hgb Conc 32.1 g/dL (32-36); Mean Corpuscular Volume 85.5 fL (80-100); Platelet Count 209 K/uL (130-400); RDW Coefficient of Variation 14.4 % (11.5-14.5); RDW Standard Deviation 45.4 fL (36.4-46.3); Red Blood Count 3.17 M/uL (4.7-6.1)
[2018-08-02] MEDS: ACETAMINOPHEN 1,000 MG/100 ML VIAL IV SCH ×3 (06:32→23:42)
[2018-08-02 06:50] LABS: BUN Creatinine Ratio 19.2 (10-20); Creatinine Clr Calc Pharmacy 72.4 ml/min; Est GFR (African American) 69.3; Est GFR (Non-African American) 59.8; Potassium 4.1 mmol/L (3.5-5.1)
[2018-08-02] MEDS: DOCUSATE SODIUM 100 MG CAP PO SCH (08:47)
[2018-08-02] MEDS: ONDANSETRON INJ 2 MG/ML 2 ML VIAL IV PRN (08:50)
[2018-08-02] MEDS: BUDESONIDE/FORMOTEROL FUMARATE 160/4.5 60 PUFFS/INHALER INH SCH ×2 (09:22→20:52)
[2018-08-02] MEDS: ATORVASTATIN 40 MG TAB PO SCH (09:22)
[2018-08-02] MEDS: MULTIVITAMIN TAB PO SCH (09:23)
[2018-08-02] MEDS: CHOLECALCIFEROL 1,000 UNITS TAB PO SCH (09:23)
[2018-08-02] MEDS: PANTOprazole 40 MG in SYRINGE 0 ML IV SCH (09:24)
[2018-08-02] MEDS: CARVEDILOL 25 MG TAB PO SCH (09:25)
[2018-08-02] MEDS: ASPIRIN 81 MG ECTAB PO SCH ×2 (09:25→20:50)
[2018-08-02] MEDS: POTASSIUM CHLORIDE 10 MEQ TABCR PO SCH (09:26)
[2018-08-02] MEDS: VERAPAMIL HCL 180 MG TABCR PO SCH (09:26)
[2018-08-02] MEDS: INSULIN GLARGINE SOLOSTAR 100 UNITS/ML 3 ML PEN SC SCH (09:28)
[2018-08-02] MEDS: INSULIN ASPART 100 UNITS/ML 3 ML PEN SC SCH ×3 (09:29→19:38)
--- NOTE | 2018-08-02 09:34 | Hospitalist Progress Note ---
Date of Service August 02, 2018 Assessment & Plan (1) Nausea: -Likely developing post operative ileus -check KUB -change diet to clear liquids and monitor -encourage ambulation to promote bowel motility -hold nonessential medications -limit opiates/anticholingergics -hold bowel regimen for now -zofran prn (2) S/P total knee arthroplasty: Post op day# 3 S/P R TKA by Dr Villarreal Procedure: EBL#5ml tolerated procedure well -pain/wound per ortho ( 08/01 developed N/V after MS contin administration, since discontinued and pain regimen adjusted, limit opiates given above) -pain control with IV omirfev, po oxycodone, IV dilaudid for severe pain -activity as directed by ortho -continue to follow cbc, bmp (3) CKD (chronic kidney disease), stage III: -bun/cr stable 12/06. -lasix and lisinopril on hold, monitor bmp (4) Diabetes mellitus, type II: -blood sugar controlled, glycemic pharmacist on board -lantus/novolog per protocol (5) Congestive heart failure: -compensated -cont BB, but holding lasix and lisinopril given nausea -monitor weights, daily I and Os closely (6) Coronary artery disease: -Hx cardiac cath 06/2018: Chronic total occlusion of RCA. 40-50% stenosis at mid LAD at takeoff of small second Dx. Second Dx with 80% ostial stenosis. -continue ASA, statin, coreg -SCOOBY on hold (7) Hypertension: -blood pressure controlled -continue BB, Verapamil, but holding lasix and lisinopril -continue adequate pain control -lasix and Lisinopril held as above (8) Hyperlipidemia: -continue atorvastatin (9) AGUSTIN (obstructive sleep apnea): -CPAP HS. Recommend re-evaluation by Sleep medicine as outpatient nonurgently. (10) GERD (gastroesophageal reflux disease): -continue PPI IV given nausea, H2 lisseth as needed (11) Restrictive lung disease: -no acute exacerbation -continue symbicort (12) RLS (restless legs syndrome): -continue mirapex (13) DVT prophylaxis: -SCDs and ASA BID per ortho Disposition: per primary Follow up: PCP Dr Luna for routine care upon discharge Pt was seen in collaboration with Dr Hadley. See addendum Supervising Physician Co-Signing Physician Notes I have seen and examined the patient and have discussed the case with the provider above. I agree with the assessment and plan as stated. Mr. Garibay has some persistent nausea today and KUB reveals question of ileus. This is in line with recent narcotic use including use of MS Contin x3 doses, oxycodone 10 mg times multiple doses just in a 24 hour period. Abdomen is benign patient is without pain. He is received multiple stool softeners and laxatives and as a result has liquid stool but this appears to be improving. Continue n.p.o. status for bowel rest and minimal IV fluids overnight to avoid dehydration, especially in the setting of possible continued vomiting. DO Gonzalo Hadley Patient was seen and examined in 307-1. Follow up S/P R TKA POD #3. "I'm not doing well today." Patient complains of nausea, "I feel like I could vomit." Has not had episode of emesis since yesterday. "I feel like I need a good BM." Experienced abdominal pain this morning, sharp, periumbilical while trying to move bowels. Currently w/o abd pain. "I think I moved liquid stool." Decreased appetite, unable to tolerate food. Liquids makes more nauseated but can keep them down. Increased abd distension, bloating, passing minimal flatus. Denies f/c/s, chest pain, sob, lightheaded, dizziness, emesis, dysuria, hem aturia, increased urg/freq with urination. He was up and moving with PT this morning, ambulated cotton way. Complains of 6/10 R knee pain after ambulating with PT. Physical Exam Vital Signs (Past 24 Hours): Last Vital Signs Temp 36.6 C 08/02/18 07:11 Pulse 67 08/02/18 07:11 Resp 18 08/02/18 07:11 BP 144/72 H 08/02/18 07:11 Pulse Ox 93 08/02/18 07:11 Physical Exam: Gen: WD/WN, morbidly obese male, ill appearing, sitting up in bedside chair, +distress with GI upset, A&O x3, answers questions approp. HEENT: Normocephalic, atraumatic, conjunctivae moist, sclerae anicteric, mucous membranes moist. Lung: Clear to Auscultation bilaterally, no wheezes/rales/rhonchi Heart: Regular rate, regular rhythm, 1/6 TRAM noted RUSB, no rubs, or gallops Abdomen: +Distended abdomen, firm, NT to palpation, +hyperactive high tinkling bowel sounds X4, no rebound, guarding or rigidity Extremities: RLE Dressing CDI, No edema, pedal pulse +2 and equal Skin: Warm, no rash, negative turgor. Results & Data Laboratory Results Short CBC 07/12/18 07/31/18 08/01/18 Range/Units 10:59 06:39 06:03 WBC (4.8-10.8) K/uL Hgb (14.0-18.0) g/dL Hct (42-52) % Plt Count (130-400) K/uL Creatinine 1.34 1.58 H 1.40 (0.6-1.4) mg/dl 08/02/18 08/02/18 Range/Units 05:45 05:45 WBC 7.20 (4.8-10.8) K/uL Hgb 8.7 L (14.0-18.0) g/dL Hct 27.1 L (42-52) % Plt Count 209 (130-400) K/uL Creatinine 1.19 (0.6-1.4) mg/dl BMP 08/02/18 05:45 Sodium 140 Potassium 4.1 Chloride 106 Carbon Dioxide 28 BUN 23 H Creatinine 1.19 Glucose 123 H Calcium 8.0 L Medications Administered Aspirin (Ecotrin Ectab) 81 mg PO BID [facility] Stop: 08/29/18 20:59 Last Admin: 08/02/18 09:25 Dose: 81 mg Documented by: [id number] Admin: 08/01/18 21:20 Dose: 81 mg Documented by: [id number] Admin: 08/01/18 08:39 Dose: 81 mg Documented by: [id number] Admin: 07/31/18 22:07 Dose: 81 mg Documented by: [id number] Admin: 07/31/18 08:39 Dose: 81 mg Documented by: [id number] Admin: 07/30/18 21:18 Dose: 81 mg Documented by: [id number] Atorvastatin Calcium (Lipitor) 80 mg PO QAM [facility] Stop: 08/30/18 08:59 Last Admin: 08/02/18 09:22 Dose: Not Given Documented by: [id number] Admin: 08/01/18 08:38 Dose: 80 mg Documented by: [id number] Admin: 07/31/18 08:40 Dose: 80 mg Documented by: [id number] Budesonide/Formoterol Fumarate (Symbicort 160mcg/4.5mcg) 2 puffs INH BID [facility] Stop: 08/29/18 20:59 Last Admin: 08/02/18 09:22 Dose: 2 puffs Documented by: [id number] Admin: 08/01/18 21:20 Dose: 2 puffs Documented by: [id number] Admin: 08/01/18 08:39 Dose: 2 puffs Documented by: [id number] Admin: 07/31/18 22:07 Dose: 2 puffs Documented by: [id number] Admin: 07/31/18 08:48 Dose: 2 puffs Documented by: [id number] Admin: 07/30/18 21:20 Dose: 2 puffs Documented by: [id number] Carvedilol (Coreg) 25 mg PO BID [facility] Stop: 08/29/18 20:59 Last Admin: 08/02/18 09:25 Dose: 25 mg Documented by: [id number] Admin: 08/01/18 21:19 Dose: 25 mg Documented by: [id number] Admin: 08/01/18 08:38 Dose: 25 mg Documented by: [id number] Admin: 07/31/18 22:10 Dose: Not Given Documented by: [id number] Admin: 07/31/18 08:39 Dose: 25 mg Documented by: [id number] Admin: 07/30/18 21:18 Dose: Not Given Documented by: [id number] Docusate Sodium (Colace) 100 mg PO BID [facility] Stop: 08/29/18 20:59 Last Admin: 08/02/18 08:47 Dose: Not Given Documented by: [id number] Admin: 08/01/18 20:10 Dose: Not Given Documented by: [id number] Admin: 08/01/18 08:38 Dose: 100 mg Documented by: [id number] Admin: 07/31/18 22:06 Dose: 100 mg Documented by: [id number] Admin: 07/31/18 08:40 Dose: 100 mg Documented by: [id number] Admin: 07/30/18 21:18 Dose: 100 mg Documented by: [id number] Doxazosin Mesylate (Cardura) 2 mg PO HS [facility] Stop: 08/29/18 20:59 Last Admin: 08/01/18 21:20 Dose: 2 mg Documented by: [id number] Admin: 07/31/18 22:06 Dose: 2 mg Documented by: [id number] Admin: 07/30/18 21:18 Dose: 2 mg Documented by: [id number] Furosemide (Lasix) 40 mg PO QAM [facility] Stop: 08/30/18 09:59 Last Admin: 08/01/18 08:39 Dose: 40 mg Documented by: [id number] Admin: 07/31/18 10:07 Dose: Not Given Documented by: [id number] Hydromorphone HCl (Dilaudid) 1 mg IV Q4H PRN PRN Reason: Pain Stop: 08/13/18 10:34 Last Admin: 08/01/18 07:21 Dose: 1 mg Documented by: [id number] Acetaminophen (Ofirmev) 1,000 mg in 100 mls @ 400 mls/hr IV Q8H [facility] Stop: 08/31/18 15:29 Last Infusion: 08/02/18 07:10 Dose: 0 mls/hr Documented by: [id number] Admin: 08/02/18 06:32 Dose: 400 mls/hr Documented by: [id number] Infusion: 08/01/18 23:40 Dose: 0 mls/hr Documented by: [id number] Admin: 08/01/18 23:25 Dose: 400 mls/hr Documented by: [id number] Infusion: 08/01/18 15:57 Dose: 0 mls/hr Documented by: [id number] Admin: 08/01/18 15:32 Dose: 400 mls/hr Documented by: [id number] Pantoprazole Sodium 40 mg/ (Syringe) 10 mls @ 5 mls/min IV QAM [facility] Stop: 09/01/18 08:59 Last Admin: 08/02/18 09:24 Dose: 5 mls/min Documented by: [id number] Insulin Aspart (Novolog Flexpen) 0 units SC ACHS [facility] Stop: 08/29/18 12:59 Last Admin: 08/02/18 09:29 Dose: 1 units Documented by: [id number] Cosigned by: [id number] Admin: 08/01/18 21:17 Dose: 3 units Documented by: [id number] Cosigned by: [id number] Admin: 08/01/18 18:44 Dose: 2 units Documented by: [id number] Cosigned by: [id number] Admin: 08/01/18 12:52 Dose: 5 units Documented by: [id number] Cosigned by: [id number] Admin: 08/01/18 08:42 Dose: 11 units Documented by: [id number] Cosigned by: [id number] Admin: 07/31/18 22:14 Dose: Not Given Documented by: [id number] Cosigned by: [id number] Admin: 07/31/18 19:00 Dose: 14 units Documented by: [id number] Cosigned by: [id number] Admin: 07/31/18 13:08 Dose: 17 units Documented by: [id number] Cosigned by: [id number] Admin: 07/31/18 08:44 Dose: 14 units Documented by: [id number] Cosigned by: [id number] Admin: 07/30/18 21:22 Dose: 4 units Documented by: [id number] Cosigned by: [id number] Admin: 07/30/18 18:47 Dose: 19 units Documented by: [id number] Cosigned by: [id number] Admin: 07/30/18 13:11 Dose: 9 units Documented by: [id number] Cosigned by: [id number] Insulin Glargine (Lantus Solostar Pen) 0 units SC BID [facility]; Protocol Stop: 08/30/18 08:59 Last Admin: 08/02/18 09:28 Dose: 18 units Documented by: [id number] Cosigned by: [id number] Admin: 08/01/18 21:16 Dose: 18 units Documented by: [id number] Cosigned by: [id number] Admin: 07/31/18 22:13 Dose: 20 units Documented by: [id number] Cosigned by: [id number] Admin: 07/31/18 08:45 Dose: 20 units Documented by: [id number] Cosigned by: [id number] Lisinopril (Zestril) 20 mg PO BID [facility] Stop: 08/31/18 08:59 Last Admin: 08/01/18 08:40 Dose: 20 mg Documented by: [id number] Multivitamins (Multivitamin Tab) 1 tab PO QAM [facility] Stop: 08/30/18 08:59 Last Admin: 08/02/18 09:23 Dose: Not Given Documented by: [id number] Admin: 08/01/18 08:38 Dose: 1 tab Documented by: [id number] Admin: 07/31/18 08:39 Dose: 1 tab Documented by: [id number] Ondansetron HCl (Zofran) 4 mg IV Q6H PRN PRN Reason: Nausea And Vomiting Stop: 08/29/18 10:34 Last Admin: 08/02/18 08:50 Dose: 4 mg Documented by: [id number] Admin: 08/01/18 14:53 Dose: 4 mg Documented by: [id number] Admin: 08/01/18 10:33 Dose: 4 mg Documented by: [id number] Oxycodone HCl (Roxicodone Immediate Rel) 5 - 10 mg PO Q4H PRN PRN Reason: Pain Stop: 08/13/18 10:34 Last Admin: 08/01/18 10:02 Dose: 10 mg Documented by: [id number] Admin: 08/01/18 05:57 Dose: 10 mg Documented by: [id number] Admin: 07/31/18 19:05 Dose: 10 mg Documented by: [id number] Admin: 07/31/18 13:19 Dose: 10 mg Documented by: [id number] Admin: 07/31/18 08:43 Dose: 10 mg Documented by: [id number] Admin: 07/30/18 12:46 Dose: 10 mg Documented by: [id number] Potassium Chloride (Klor-Con M10) 10 meq PO DAILY [facility] Stop: 08/31/18 08:59 Last Admin: 08/02/18 09:26 Dose: 10 meq Documented by: [id number] Admin: 08/01/18 08:39 Dose: 10 meq Documented by: [id number] Pramipexole Dihydrochloride (Mirapex) 0.5 mg PO HS [facility] Stop: 08/29/18 20:59 Last Admin: 08/01/18 21:19 Dose: 0.5 mg Documented by: [id number] Admin: 07/31/18 22:07 Dose: 0.5 mg Documented by: [id number] Admin: 07/30/18 21:19 Dose: 0.5 mg Documented by: [id number] Sennosides (Senokot) 17.2 mg PO HS [facility] Stop: 08/29/18 20:59 Last Admin: 08/01/18 20:10 Dose: Not Given Documented by: [id number] Admin: 07/31/18 22:07 Dose: 17.2 mg Documented by: [id number] Admin: 07/30/18 21:19 Dose: 17.2 mg Documented by: [id number] Verapamil HCl (Calan Sr) 360 mg PO DAILY [facility] Stop: 08/30/18 08:59 Last Admin: 08/02/18 09:26 Dose: 360 mg Documented by: [id number] Admin: 08/01/18 08:41 Dose: 360 mg Documented by: [id number] Admin: 07/31/18 08:39 Dose: 360 mg Documented by: [id number] Vitamin D (Vitamin D3) 1,000 units PO QAM [facility] Stop: 08/30/18 08:59 Last Admin: 08/02/18 09:23 Dose: Not Given Documented by: [id number] Admin: 08/01/18 08:38 Dose: 1,000 units Documented by: [id number] Admin: 07/31/18 08:39 Dose: 1,000 units Documented by: [id number] Discontinued Medications Acetaminophen (Tylenol) 1,000 mg PO PREOP [facility] Stop: 07/30/18 18:00 Last Admin: 07/30/18 06:15 Dose: 1,000 mg Documented by: [id number] Acetaminophen (Tylenol) 1,000 mg PO Q8 [facility] Stop: 08/29/18 13:59 Last Admin: 08/01/18 13:19 Dose: Not Given Documented by: [id number] Admin: 08/01/18 05:57 Dose: 1,000 mg Documented by: [id number] Admin: 07/31/18 22:08 Dose: 1,000 mg Documented by: [id number] Admin: 07/31/18 13:18 Dose: 1,000 mg Documented by: [id number] Admin: 07/31/18 05:27 Dose: 1,000 mg Documented by: [id number] Admin: 07/30/18 21:20 Dose: 1,000 mg Documented by: [id number] Admin: 07/30/18 13:10 Dose: 1,000 mg Documented by: [id number] Bacitracin (Bacitracin) Confirm Administered Dose 50,000 units .ROUTE .STK-MED [facility] Stop: 07/30/18 07:11 Last Admin: 07/30/18 08:29 Dose: 50,000 units Documented by: [id number] Celecoxib (Celebrex) 200 mg PO PREOP [facility] Stop: 07/30/18 18:00 Last Admin: 07/30/18 06:14 Dose: 200 mg Documented by: [id number] Dexamethasone (Decadron) 8 mg PO PREOP [facility] Stop: 07/30/18 18:00 Last Admin: 07/30/18 06:13 Dose: 8 mg Documented by: [id number] Famotidine (Pepcid) 20 mg PO PREOP [facility] Stop: 07/30/18 18:00 Last Admin: 07/30/18 06:14 Dose: 20 mg Documented by: [id number] Furosemide (Lasix) 40 mg PO BID17 [facility] Stop: 08/29/18 16:59 Last Admin: 07/31/18 09:35 Dose: 40 mg Documented by: [id number] Gabapentin (Neurontin) 300 mg PO PREOP [facility] Stop: 07/30/18 18:00 Last Admin: 07/30/18 06:14 Dose: 300 mg Documented by: [id number] Hydromorphone HCl (Dilaudid) Confirm Administered Dose 1 mg .ROUTE .STK-MED ONE Stop: 07/30/18 11:10 Last Admin: 07/30/18 11:10 Dose: 1 mg Documented by: [id number] Lactated Ringer's (Lr) 1,000 mls @ 15 mls/hr IV .Q24H [facility] Stop: 07/30/18 18:00 Last Infusion: 07/30/18 09:46 Dose: 0 mls/hr Documented by: [id number] Infusion: 07/30/18 07:24 Dose: 0 mls/hr Documented by: [id number] Infusion: 07/30/18 06:28 Dose: 15 mls/hr Documented by: [id number] Admin: 07/30/18 05:52 Dose: 999 mls/hr Documented by: [id number] Cefazolin Sodium (Ancef 3000mg) 65 mls @ 130 mls/hr IV PREOP [facility]; Protocol Stop: 07/30/18 18:00 Last Infusion: 07/30/18 09:46 Dose: 0 mls/hr Documented by: [id number] Admin: 07/30/18 07:24 Dose: 130 mls/hr Documented by: [id number] Tranexamic Acid 1,000 mg/ (Sodium Chloride) 110 mls @ 660 mls/hr IV TODAY@0600 [facility] Stop: 07/30/18 06:09 Last Infusion: 07/30/18 06:53 Dose: 0 mls/hr Documented by: [id number] Admin: 07/30/18 06:43 Dose: 660 mls/hr Documented by: [id number] Tranexamic Acid 1,000 mg/ (Sodium Chloride) 110 mls @ 660 mls/hr IV 0630 [facility] Stop: 07/30/18 06:39 Last Infusion: 07/30/18 09:46 Dose: 0 mls/hr Documented by: [id number] Admin: 07/30/18 08:28 Dose: 660 mls/hr Documented by: [id number] Ropivacaine 150 mg/Bupivacaine HCl 30 ml/Epinephrine HCl 0.15 mg/Ketorolac Tromethamine 30 mg/Dexamethasone 4 mg/ Ketamine HCl 10 mg/ Clonidine HCl 100 mcg/ Sodium Chloride 93.35 mls @ 0 mls/hr INFIL TODAY@0600 [facility] Stop: 07/30/18 06:01 Last Admin: 07/30/18 08:28 Dose: 93.3 mls/hr Documented by: [id number] Sodium Chloride (Nss 1000ml) 1,000 mls @ 100 mls/hr IV .Q10H [facility] Stop: 07/30/18 20:34 Last Infusion: 07/30/18 21:46 Dose: 0 mls/hr Documented by: [id number] Admin: 07/30/18 11:28 Dose: 100 mls/hr Documented by: [id number] Cefazolin Sodium (Ancef 2000mg) 2,000 mg in 15 mls @ 3.75 mls/min IV Q8H [facility]; Protocol Stop: 07/30/18 23:03 Last Admin: 07/30/18 22:37 Dose: 3.75 mls/min Documented by: [id number] Admin: 07/30/18 14:44 Dose: 3.75 mls/min Documented by: [id number] Cefazolin Sodium (Ancef 2000mg) 2,000 mg in 15 mls @ 3.75 mls/min IV Q8H [facility] Stop: 08/01/18 00:03 Last Admin: 07/31/18 23:53 Dose: 3.75 mls/min Documented by: [id number] Admin: 07/31/18 16:15 Dose: 3.75 mls/min Documented by: [id number] Admin: 07/31/18 08:38 Dose: 3.75 mls/min Documented by: [id number] Sodium Chloride (Nss 1000ml) 1,000 mls @ 80 mls/hr IV .[id number] [facility] Stop: 08/30/18 11:59 Last Infusion: 07/31/18 14:48 Dose: 0 mls/hr Documented by: [id number] Admin: 07/31/18 12:41 Dose: 80 mls/hr Documented by: [id number] Sodium Chloride (Nss 1000ml) 1,000 mls @ 125 mls/hr IV .Q8H [facility] Stop: 08/02/18 07:14 Last Infusion: 08/02/18 07:56 Dose: 0 mls/hr Documented by: [id number] Admin: 08/01/18 23:26 Dose: 125 mls/hr Documented by: [id number] Infusion: 08/01/18 23:26 Dose: 125 mls/hr Documented by: [id number] Infusion: 08/01/18 21:36 Dose: 125 mls/hr Documented by: [id number] Admin: 08/01/18 15:31 Dose: 125 mls/hr Documented by: [id number] Insulin Aspart (Novolog Flexpen) 0 units SC TODAY@0000,0400 [facility] Stop: 07/31/18 04:01 Last Admin: 07/31/18 04:15 Dose: 1 units Documented by: [id number] Cosigned by: [id number] Admin: 07/30/18 23:29 Dose: 2 units Documented by: [id number] Cosigned by: [id number] Insulin Glargine (Lantus Solostar Pen) 30 units SC 1315 ONE; Protocol Stop: 07/30/18 13:16 Last Admin: 07/30/18 13:12 Dose: 30 units Documented by: [id number] Cosigned by: [id number] Insulin Glargine (Lantus Solostar Pen) 0 units SC HS ONE; Protocol Stop: 07/30/18 21:01 Last Admin: 07/30/18 21:23 Dose: 40 units Documented by: [id number] Cosigned by: [id number] Insulin Glargine (Lantus Solostar Pen) 0 units SC TODAY@1130 [facility]; Protocol Stop: 08/01/18 11:31 Last Admin: 08/01/18 12:55 Dose: 18 units Documented by: [id number] Cosigned by: [id number] Ketorolac Tromethamine (Toradol) 15 mg IV Q6H [facility] Stop: 07/31/18 06:01 Last Admin: 07/31/18 05:28 Dose: 15 mg Documented by: [id number] Admin: 07/30/18 23:22 Dose: 15 mg Documented by: [id number] Admin: 07/30/18 17:43 Dose: 15 mg Documented by: [id number] Admin: 07/30/18 11:28 Dose: 15 mg Documented by: [id number] Ketorolac Tromethamine (Toradol) 15 mg IV NOW ONE Stop: 08/01/18 15:13 Last Admin: 08/01/18 15:32 Dose: 15 mg Documented by: [id number] Lisinopril (Zestril) 20 mg PO QAM [facility] Stop: 08/30/18 09:59 Last Admin: 07/31/18 11:13 Dose: 20 mg Documented by: [id number] Metoclopramide HCl (Reglan) 10 mg PO PREOP [facility] Stop: 07/30/18 18:00 Last Admin: 07/30/18 06:14 Dose: 10 mg Documented by: [id number] Miscellaneous (Ortho Joint Anesthetic) Confirm Administered Dose 1 ea .ROUTE .STK-MED ONE Stop: 07/30/18 07:11 Last Admin: 07/30/18 08:30 Dose: Not Given Documented by: [id number] Morphine Sulfate (Ms Contin) 15 mg PO Q12H [facility] Stop: 08/14/18 11:59 Last Admin: 08/01/18 12:27 Dose: 15 mg Documented by: [id number] Admin: 07/31/18 23:53 Dose: 15 mg Documented by: [id number] Admin: 07/31/18 12:43 Dose: 15 mg Documented by: [id number] Ondansetron HCl (Zofran) 4 mg IV NOW STA Stop: 08/01/18 14:52 Last Admin: 08/01/18 15:01 Dose: Not Given Documented by: [id number] Pantoprazole Sodium (Protonix) 40 mg PO HS [facility] Stop: 08/29/18 20:59 Last Admin: 07/31/18 22:07 Dose: 40 mg Documented by: [id number] Admin: 07/30/18 21:19 Dose: 40 mg Documented by: [id number] Polyethylene Glycol (Miralax Powder Packet) 17 gm PO ONE ONE Stop: 07/31/18 14:43 Last Admin: 07/31/18 16:14 Dose: 17 gm Documented by: [id number] Povidone Iodine (Betadine Ophthalmic Prep) Confirm Administered Dose 30 ml .ROUTE .STK-MED ONE Stop: 07/30/18 07:11 Last Admin: 07/30/18 08:29 Dose: 20 ml Documented by: [id number] (1) Coronary artery disease Associated angina: without angina Coronary Disease-Associated Artery/Lesion type: [place] artery [place] vs. transplanted heart: [place] heart Qualified Code(s): I25.10 - Atherosclerotic heart disease of [place] coronary artery without angina pectoris (2) Hyperlipidemia Hyperlipidemia type: unspecified Qualified Code(s): E78.5 - Hyperlipidemia, unspecified (3) S/P total knee arthroplasty Laterality: right Qualified Code(s): Z96.651 - Presence of right artificial knee joint (4) GERD (gastroesophageal reflux disease) Esophagitis presence: esophagitis presence not specified Qualified Code(s): K21.9 - Gastro-esophageal reflux disease without esophagitis (5) Hypertension Hypertension type: essential hypertension Qualified Code(s): I10 - Essential (primary) hypertension
--- NOTE | 2018-08-02 09:38 | Orthopedic Progress Note ---
Date of Service August 02, 2018 Assessment & Plan (1) Right knee DJD: Postop day 3 status post right TKA. We will hold PT at this point in time. I am going to order an ultrasound of the right lower extremity to rule out DVT. A KUB x-ray has already been ordered and taken per medicine service to rule out ileus. Continue DVT prophylaxis with aspirin twice daily, SCDs, ADRIAN hose. Current pain management with oxycodone, IV Dilaudid, tramadol, acetaminophen Subjective Postop day 3 status post right total knee arthroplasty. Patient is sitting up at the bedside in the chair. He does not appear very comfortable. He is having right lower extremity discomfort as well as abdominal discomfort. He has his breakfast but he is refusing to eat it. He is worried about further emesis. States that he had some episodes of emesis last night. He has been going to the bathroom but has not had any firm bowel movements. He states that has mostly been watery stool. Stats that his RLE hurts. Hurts to move the knee/leg. Denies chest pain, shortness of breath, or lightheadedness. Physical Exam Vital Signs (Past 24 Hours): Last Vital Signs Temp 36.6 C 08/02/18 07:11 Pulse 67 08/02/18 07:11 Resp 18 08/02/18 07:11 BP 144/72 H 08/02/18 07:11 Pulse Ox 93 08/02/18 07:11 Physical Exam: On examination of the right lower extremity, he has a sarath dressing on that is intact and functioning. He does have some noted swelling of the knee and also of the thigh and of the anterior calf. He does not have any overt swelling of the ankle and foot. Mild palpation over the knee elicits moderate pain response from him. Palpating the anterior compartments of the calf does cause him some discomfort but is not severe. Palpation of the posterior calf does cause him some tenderness. Homans exam causes him increased pain in the back of the RLE. On examination of his abdomen, bowel sounds are slow but I do not appreciate any rushes. His abdomen is extended and tight,tympanic on palpation. Results & Data Laboratory Results 08/02/18 08/02/18 08/02/18 Range/Units 08:27 05:45 05:45 WBC 7.20 (4.8-10.8) K/uL RBC 3.17 L (4.7-6.1) M/uL Hgb 8.7 L (14.0-18.0) g/dL Hct 27.1 L (42-52) % MCV 85.5 (80-100) fL MCH 27.4 (25-34) pg MCHC 32.1 (32-36) g/dL RDW Std Deviation 45.4 (36.4-46.3) fL RDW Coeff of Shawn 14.4 (11.5-14.5) % Plt Count 209 (130-400) K/uL MPV 10.0 (7.4-10.4) fL Sodium 140 (136-145) mmol/L Potassium 4.1 (3.5-5.1) mmol/L Chloride 106 (98-107) mmol/L Carbon Dioxide 28 (21-32) mmol/L Anion Gap 6.0 (3-11) BUN 23 H (7-18) mg/dl Creatinine 1.19 (0.6-1.4) mg/dl Est Cr Clr Drug Dosing 72.4 ml/min Est GFR ( Amer) 69.3 Est GFR (Non-Af Amer) 59.8 BUN/Creatinine Ratio 19.2 (10-20) Glucose 123 H (70-99) mg/dl POC Glucose 142 H (70-99) Calcium 8.0 L (8.5-10.1) mg/dl Magnesium 2.0 (1.8-2.4) mg/dl 08/01/18 08/01/18 08/01/18 Range/Units 20:48 17:12 11:55 WBC (4.8-10.8) K/uL RBC (4.7-6.1) M/uL Hgb (14.0-18.0) g/dL Hct (42-52) % MCV (80-100) fL MCH (25-34) pg MCHC (32-36) g/dL RDW Std Deviation (36.4-46.3) fL RDW Coeff of Shawn (11.5-14.5) % Plt Count (130-400) K/uL MPV (7.4-10.4) fL Sodium (136-145) mmol/L Potassium (3.5-5.1) mmol/L Chloride (98-107) mmol/L Carbon Dioxide (21-32) mmol/L Anion Gap (3-11) BUN (7-18) mg/dl Creatinine (0.6-1.4) mg/dl Est Cr Clr Drug Dosing ml/min Est GFR ( Amer) Est GFR (Non-Af Amer) BUN/Creatinine Ratio (10-20) Glucose (70-99) mg/dl POC Glucose 177 H 166 H 111 H (70-99) Calcium (8.5-10.1) mg/dl Magnesium (1.8-2.4) mg/dl
--- NOTE | 2018-08-02 09:52 | XRay Report ---
KUB HISTORY: Generalized abdominal pain. Nausea. COMPARISON: Chest and abdominal series 10/24/2014. FINDINGS: A few borderline dilated gas-filled loops of large and small bowel. No evidence for bowel o bstruction. No renal calculi. No ureteral calculi. No pneumoperitoneum or pneumatosis. IMPRESSION: A few borderline dilated gas-filled loops of large and small bowel suggestive of a mild ileus. No oli dence for bowel obstruction. Electronically signed by: Tristin Martell M.D. 08/02/2018 9:51 AM
[2018-08-02] MEDS: SODIUM CHLORIDE 0.9% 1000ML 1,000 ML IV SCH ×2 (11:34→23:43)
--- NOTE | 2018-08-02 11:41 | Ultrasound Report ---
RIGHT LOWER EXTREMITY VENOUS DOPPLER CLINICAL HISTORY: Right leg edema. Surgery. COMPARISON STUDY: Bilateral lower extremity venous Doppler September TECHNIQUE: Sonography of the deep venous system of the right lower extremity was performed. Compress ion and augmentation were evaluated. FINDINGS: The right common femoral, superficial femoral and popliteal veins were compressible. Augme ntation was normal. Flow was shown within the deep calf vessels although evaluation is difficult give n suboptimal penetration. IMPRESSION: Technically difficult exam but no evidence of deep venous thrombus within the right lower extremity. Electronically signed by: Xavi Melissa M.D. 08/02/2018 11:40 AM
[2018-08-02] MEDS: HYDROmorphone INJ 1 MG/ML SYRINGE IV PRN (16:54)
[2018-08-03] MEDS: INSULIN ASPART 100 UNITS/ML 3 ML PEN SC SCH ×5 (00:56→21:55)
[2018-08-03 06:20] LABS: Basophils # (auto) 0.01 K/uL (0-0.2); Basophils % (auto) 0.1 %; Eosinophils # (auto) 0.12 K/uL (0-0.5); Eosinophils % (auto) 1.8 %; Hematocrit (blood only) 23.9 % (42-52); Hemoglobin 7.7 g/dL (14.0-18.0); Immature Granulocytes # (auto) 0.04 K/uL (0.00-0.02); Immature Granulocytes % (auto) 0.6 %; Lymphocytes # (auto) 2.25 K/uL (1.2-3.4); Lymphocytes % (auto) 33.7 %; Mean Corpuscular Hgb Conc 32.2 g/dL (32-36); Mean Corpuscular Volume 85.4 fL (80-100); Mean Platelet Volume 10.1 fL (7.4-10.4); Monocytes # (auto) 0.74 K/uL (0.11-0.59); Monocytes % (auto) 11.1 %; Neutrophils # (auto) 3.51 K/uL (1.4-6.5); Neutrophils % (auto) 52.7 %; Platelet Count 192 K/uL (130-400); RDW Coefficient of Variation 14.3 % (11.5-14.5); White Blood Count 6.67 K/uL (4.8-10.8)
[2018-08-03 06:53] LABS: BUN Creatinine Ratio 16.1 (10-20); Creatinine Clr Calc Pharmacy 84.5 ml/min; Est GFR (African American) 83.5; Est GFR (Non-African American) 72.1; Potassium 3.7 mmol/L (3.5-5.1)
[2018-08-03 07:33] LABS: RBC Morphology Unremarkable
[2018-08-03] MEDS: ACETAMINOPHEN 1,000 MG/100 ML VIAL IV SCH ×2 (07:51→15:33)
[2018-08-03] MEDS: ASPIRIN 81 MG ECTAB PO SCH (07:52)
[2018-08-03] MEDS: POTASSIUM CHLORIDE 10 MEQ TABCR PO SCH (07:53)
[2018-08-03] MEDS: BUDESONIDE/FORMOTEROL FUMARATE 160/4.5 60 PUFFS/INHALER INH SCH ×2 (07:53→21:53)
[2018-08-03] MEDS: VERAPAMIL HCL 180 MG TABCR PO SCH (07:53)
[2018-08-03] MEDS: PANTOprazole 40 MG in SYRINGE 0 ML IV SCH (07:58)
[2018-08-03] MEDS ORDERED: INSULIN GLARGINE SOLOSTAR 100 UNITS/ML 3 ML PEN SC STA (08:39)
--- NOTE | 2018-08-03 09:58 | XRay Report ---
SINGLE VIEW CHEST CLINICAL HISTORY: Dyspnea. FINDINGS: 2 AP, portable, upright chest radiographs are compared to study dated 12/25/2017 and correlat ed with chest CT dated 05/26/2016. The examination is degraded by portable technique and patient rotati on. The heart is enlarged and there is atherosclerotic calcification of the thoracic aorta. There is mild pulmonary vascular congestion. Chronic interstitial thickening is similar to previous. There is mild elevation of the right hemidiaphragm with bibasilar scarring/atelectasis. No airspace consolida tion or large pleural effusion is seen. No pneumothorax is identified. The skeletal structures are os teopenic. The bony thorax is grossly intact. IMPRESSION: Cardiomegaly with mild pulmonary vascular congestion. Electronically signed by: Shon Hawthorne M.D. 08/03/2018 9:57 AM
[2018-08-03] MEDS ORDERED: KETOROLAC TROMETHAMINE 15 MG/ML VIAL IV PRN (10:58)
[2018-08-03] MEDS ORDERED: FUROSEMIDE 40 MG/4 ML VIAL IV STA (10:59)
--- NOTE | 2018-08-03 11:35 | Progress Note ---
DATE: 08/03/2018 SUBJECTIVE: Gumaro is postop day 4 from a right total knee arthroplasty and has appropriate amount of pain in the knee. He, however, does have continued pain in the abdomen and does note some shortness of breath in addition. He has been passing stool and flatus. OBJECTIVE: On right leg examination, dressing is clean, dry, and intact. He can flex and extend the toes and the ankle. Calf has minimal tenderness. Right abdomen exam does show distention and tympanic abdomen. No rebounding. ASSESSMENT: 1. Postoperative day #4 right total knee arthroplasty. 2. Ileus. PLAN: We will continue to limit opioids. We will give him sips of water with ice chips and Zofran for ileus. We will continue to monitor as well. We will hold Lasix and lisinopril given a history of kidney disease. We will continue to evaluate shortness of breath as he does have a history of restrictive lung disease. We will continue to follow and appreciate the hospitalist's input. We will continue TEDs and aspirin for DVT prophylaxis.
[2018-08-03] MEDS: ENOXAPARIN INJ 40 MG/0.4 ML SYR SQ SCH (12:47)
[2018-08-03] MEDS: FUROSEMIDE 40 MG in SYRINGE 0 ML IV STA ×2 (12:47→14:37)
--- NOTE | 2018-08-03 13:56 | Pharmacy Report ---
Pharmacy Glycemic Short Note 2 - Date of Service August 03, 2018 - Glycemic Short BSG Results (Last 24 hours): 08/02/18 08/02/18 08/03/18 18:49 23:40 05:17 Glucose 85 POC Glucose 115 H 102 H 08/03/18 08/03/18 06:08 12:17 Glucose POC Glucose 92 96 OUTPATIENT ANTIDIABETIC REGIMEN: * 70/30 40 units AM & 70 units HS, metformin * A1c = 7.1 % 08/15/18 ASSESSMENT: BSGs euglycemic over the preceding 24hrs: 037-461-68-96mg/dL. He has developed a post-operative ileus and was subsequently made NPO last night. Appropriate measures were made by the evening glycemic pharmacist. I did order him 12 units of lantus this AM, which is a significant decrease in his home dose. PLAN FOR INPATIENT GLYCEMIC CONTROL: * Holding outpatient oral diabetes medications * Basal insulin (dose reduction) * Lantus 12 units x1 this AM. Lantus will be assessed prn with his NPO status * Bolus insulin Q6 WHILE NPO * NovoLog per scale ACHS or Q6hrs while NPO * Goal Range: Low 110 mg/dL - High 140 mg/dL * Correction Factor: 18 mg/dL/unit * Nutritional / Prandial insulin per carb ratio of 1 unit per 6 grams CHO consumed PLAN FOR DISCHARGE: * A1c of 7.1% is near goal for patient based on age and co morbidities * Continue home regimen on discharge with dose titration as needed per outpatient provider
[2018-08-03] MEDS ORDERED: Nursing to Pharmacy Communication ONE (17:18)
--- NOTE | 2018-08-03 17:34 | Hospitalist Progress Note ---
Date of Service August 03, 2018 Assessment & Plan (1) Dyspnea: Some mild congestion on chest x-ray with clear lungs auscultation after holding his Lasix and starting IV fluids in the setting of postoperative ileus while patient was n.p.o. Seems to have some increasing dyspnea this morning. I V fluids were stopped and will give a small amount of Lasix to help with diuresis. The patient is not in acute heart failure. (2) Postoperative ileus: Postoperative state, ileus in the setting of multiple narcotic medications to control pain. Continue bowel rest until he feels able to tolerate clear liquids. Continue supportive care with antiemetics and nonnarcotic pain medications. (3) S/P total knee arthroplasty: Doing well per orthopedics. (4) CKD (chronic kidney disease), stage III: Stable, at baseline. Lasix and lisinopril on hold. He did receive 1 dose of Lasix for shortness of breath secondary to fluid overload after IV fluids were given. (5) Diabetes mellitus, type II: At goal on current insulin regimen. Continue per inpatient glycemic pharmacist recommendations. (6) Coronary artery disease: Stable, aspirin, statin, Coreg on hold while patient is n.p.o. (7) Hypertension: Home medications were held. Continue to monitor closely. Will use parenteral antihypertensives if needed. (8) AGUSTIN (obstructive sleep apnea): CPAP HS. Recommend re-evaluation by Sleep medicine as outpatient nonurgently. (9) RLS (restless legs syndrome): continue mirapex per home regimen (10) DVT prophylaxis: Switch to aspirin twice daily to Lovenox as patient is n.p.o. Discussed this with orthopedics prior to switching. Full code Disposition-pending orthopedic clearance and stabilization of blood counts as well as improvement of postop ileus. Hue Hadley DO [facility] Hospitalist Subjective Some persistent nausea this morning but this has improved. Bowels seem to be improving after multiple laxatives and stool softeners. No vomiting recently. He is not had any narcotics all night and is doing well. He reports minimal pain in his operative site today. Still does not feel ready to tolerate food. He reported feeling short of breath this morning more so than normal and had a 90% on room air. IV fluids were stopped and a chest x-ray was taken revealing some minimal congestion. Physical Exam Vital Signs (Past 24 Hours): Last Vital Signs Temp 36.6 C 08/03/18 14:49 Pulse 71 08/03/18 14:49 Resp 20 08/03/18 14:49 BP 147/66 H 08/03/18 14:49 Pulse Ox 91 08/03/18 14:49 CONSTITUTIONAL: obese, vitals as above, NAD, malaise has improved EYES: normal conjuctivae, no scleral icterus ENT: MMM RESPIRATORY: clear to auscultation bilaterally, no crackles, rales or wheezes, normal respiratory effort CARDIOVASCULAR: regular rate and rhythm, S1 and 2 heard without murmurs, gallops or rubs, no JVD, no peripheral edema GASTROINTESTINAL: normal bowel sounds, soft, nontender, nondistended MUSCULOSKELETAL: strength 5/5 throughout, head is normocephalic and atraumatic SKIN: warm and dry NEUROLOGIC: CN 2-12 grossly intact, no gross neuro deficit. RLE warm and well-perfused, 2+pulses, sensation intact. PSYCHIATRIC: alert cooperative and oriented to person, place and time. Results & Data Laboratory Results Short CBC 08/03/18 Range/Units 05:17 WBC 6.67 (4.8-10.8) K/uL Hgb 7.7 L (14.0-18.0) g/dL Hct 23.9 L (42-52) % Plt Count 192 (130-400) K/uL BMP 08/03/18 05:17 Sodium 142 Potassium 3.7 Chloride 107 Carbon Dioxide 28 BUN 16 Creatinine 1.02 Glucose 85 Calcium 8.0 L Medications Administered Current Inpatient Medications Aspirin (Ecotrin Ectab) 81 mg PO BID [facility] Stop: 08/29/18 20:59 Last Admin: 08/03/18 07:52 Dose: 81 mg Documented by: Bisacodyl (Dulcolax) 10 mg [place] Q6H PRN PRN Reason: Constipation Stop: 08/29/18 10:34 Budesonide/Formoterol Fumarate (Symbicort 160mcg/4.5mcg) 2 puffs INH BID [facility] Stop: 08/29/18 20:59 Last Admin: 08/03/18 07:53 Dose: 2 puffs Documented by: Carvedilol (Coreg) 25 mg PO BID [facility] Stop: 08/29/18 20:59 Last Admin: 08/02/18 09:25 Dose: 25 mg Documented by: Dextrose (Dextrose 50%) 25 - 50 ml IV UD PRN; Protocol PRN Reason: Hypoglycemia Protocol Stop: 08/29/18 12:00 Diphenhydramine HCl (Benadryl Capsule) 25 mg PO Q8H PRN PRN Reason: Itching Stop: 08/29/18 10:34 Docusate Sodium (Colace) 100 mg PO BID [facility] Stop: 08/29/18 20:59 Last Admin: 08/02/18 08:47 Dose: Not Given Documented by: Doxazosin Mesylate (Cardura) 2 mg PO HS [facility] Stop: 08/29/18 20:59 Last Admin: 08/01/18 21:20 Dose: 2 mg Documented by: Enoxaparin Sodium (Lovenox) 40 mg SQ QAM [facility] Stop: 09/02/18 11:29 Last Admin: 08/03/18 12:47 Dose: 40 mg Documented by: Furosemide (Lasix) 40 mg PO QAM [facility] Stop: 08/30/18 09:59 Last Admin: 08/01/18 08:39 Dose: 40 mg Documented by: Glucagon (Glucagen) 1 mg SQ UD PRN; Protocol PRN Reason: Hypoglycemia Protocol Stop: 08/29/18 12:00 Glucose (Dex4 Glucose) 4 - 8 tabs PO UD PRN; Protocol PRN Reason: Hypoglycemia Protocol Stop: 08/29/18 12:00 Glucose (Glucose 40%) 15 - 30 gm PO UD PRN; Protocol PRN Reason: Hypoglycemia Protocol Stop: 08/29/18 12:00 Hydromorphone HCl (Dilaudid) 1 mg IV Q4H PRN PRN Reason: Pain Stop: 08/13/18 10:34 Last Admin: 08/02/18 16:54 Dose: 1 mg Documented by: Acetaminophen (Ofirmev) 1,000 mg in 100 mls @ 400 mls/hr IV Q8H [facility] Stop: 08/31/18 15:29 Last Infusion: 08/03/18 16:07 Dose: Infused Documented by: Pantoprazole Sodium 40 mg/ (Syringe) 10 mls @ 5 mls/min IV QAM [facility] Stop: 09/01/18 08:59 Last Admin: 08/03/18 07:58 Dose: 5 mls/min Documented by: Sodium Chloride (Nss 1000ml) 1,000 mls @ 80 mls/hr IV .[id number] [facility] Stop: 09/01/18 11:59 Last Infusion: 08/03/18 15:33 Dose: Infused Documented by: Insulin Aspart (Novolog Flexpen) 0 units SC ACHS [facility] Stop: 09/02/18 16:29 Insulin Glargine (Lantus Solostar Pen) 0 units SC BID [facility]; Protocol Stop: 08/30/18 08:59 Last Admin: 08/02/18 09:28 Dose: 18 units Documented by: Ketorolac Tromethamine (Toradol) 15 mg IV Q8H PRN PRN Reason: severe breakthrough pain only Stop: 08/08/18 10:57 Lisinopril (Zestril) 20 mg PO BID [facility] Stop: 08/31/18 08:59 Last Admin: 08/01/18 08:40 Dose: 20 mg Documented by: Magnesium Hydroxide (Milk Of Magnesia) 30 ml PO Q6H PRN PRN Reason: Constipation Stop: 08/29/18 10:34 Miscellaneous (Carbohydrates For Hypoglycemia) 15 - 30 gm PO UD PRN PRN Reason: Hypoglycemia Treatment Stop: 08/29/18 12:00 Miscellaneous Information (Consult Glycemic Management Pharmacy) 1 ea N/A UD P RN PRN Reason: Consult Stop: 08/29/18 17:07 Multivitamins (Multivitamin Tab) 1 tab PO QAM [facility] Stop: 08/30/18 08:59 Last Admin: 08/02/18 09:23 Dose: Not Given Documented by: Naloxone HCl (Narcan) 0.1 mg IV Q5M PRN PRN Reason: Oversedation/Resp Depression Stop: 08/29/18 10:34 Nitroglycerin (Nitrostat) 0.4 mg SL UD PRN PRN Reason: Chest Pain Stop: 08/29/18 10:34 Ondansetron HCl (Zofran) 4 mg IV Q6H PRN PRN Reason: Nausea And Vomiting Stop: 08/29/18 10:34 Last Admin: 08/02/18 08:50 Dose: 4 mg Documented by: Oxycodone HCl (Roxicodone Immediate Rel) 5 - 10 mg PO Q4H PRN PRN Reason: Pain Stop: 08/13/18 10:34 Last Admin: 08/01/18 10:02 Dose: 10 mg Documented by: Polyethylene Glycol (Miralax Powder Packet) 17 gm PO DAILY PRN PRN Reason: Constipation Stop: 08/30/18 14:41 Pramipexole Dihydrochloride (Mirapex) 0.5 mg PO HS [facility] Stop: 08/29/18 20:59 Last Admin: 08/01/18 21:19 Dose: 0.5 mg Documented by: Ranitidine HCl (Zantac) 300 mg PO PM PRN PRN Reason: Heartburn Stop: 08/29/18 20:59 Sennosides (Senokot) 17.2 mg PO HS [facility] Stop: 08/29/18 20:59 Last Admin: 08/01/18 20:10 Dose: Not Given Documented by: Tramadol HCl (Ultram) 50 - 100 mg PO Q4H PRN PRN Reason: Pain Stop: 08/31/18 13:16 Last Admin: 08/02/18 15:22 Dose: 100 mg Documented by: Verapamil HCl (Calan Sr) 360 mg PO DAILY [facility] Stop: 08/30/18 08:59 Last Admin: 08/03/18 07:53 Dose: 360 mg Documented by: Vitamin D (Vitamin D3) 1,000 units PO QAM [facility] Stop: 08/30/18 08:59 Last Admin: 08/02/18 09:23 Dose: Not Given Documented by: (1) Coronary artery disease Associated angina: without angina Coronary Disease-Associated Artery/Lesion type: [place] artery [place] vs. transplanted heart: [place] heart Qualified Code(s): I25.10 - Atherosclerotic heart disease of [place] coronary artery without angina pectoris (2) S/P total knee arthroplasty Laterality: right Qualified Code(s): Z96.651 - Presence of right artificial knee joint (3) Hypertension Hypertension type: essential hypertension Qualified Code(s): I10 - Essential (primary) hypertension
[2018-08-04] MEDS: ACETAMINOPHEN 1,000 MG/100 ML VIAL IV SCH ×4 (00:02→23:23)
[2018-08-04 05:35] LABS: Hematocrit (blood only) 23.9 % (42-52); Hemoglobin 7.7 g/dL (14.0-18.0); Mean Corpuscular Hgb Conc 32.2 g/dL (32-36); Mean Corpuscular Volume 85.4 fL (80-100); Mean Platelet Volume 9.2 fL (7.4-10.4); Platelet Count 207 K/uL (130-400); RDW Coefficient of Variation 14.4 % (11.5-14.5); RDW Standard Deviation 44.5 fL (36.4-46.3); White Blood Count 6.43 K/uL (4.8-10.8)
[2018-08-04 06:04] LABS: BUN Creatinine Ratio 11.2 (10-20); Calcium 8.1 mg/dl (8.5-10.1); Creatinine Clr Calc Pharmacy 80.5 ml/min; Est GFR (African American) 78.8; Potassium 3.8 mmol/L (3.5-5.1)
[2018-08-04] MEDS: PANTOprazole 40 MG in SYRINGE 0 ML IV SCH (08:23)
[2018-08-04] MEDS: ENOXAPARIN INJ 40 MG/0.4 ML SYR SQ SCH (08:24)
[2018-08-04] MEDS: VERAPAMIL HCL 180 MG TABCR PO SCH (08:24)
[2018-08-04] MEDS: BUDESONIDE/FORMOTEROL FUMARATE 160/4.5 60 PUFFS/INHALER INH SCH ×2 (08:25→20:38)
[2018-08-04] MEDS ORDERED: INSULIN GLARGINE SOLOSTAR 100 UNITS/ML 3 ML PEN SC ONE (09:00)
[2018-08-04] MEDS: INSULIN ASPART 100 UNITS/ML 3 ML PEN SC SCH ×4 (09:32→20:41)
--- NOTE | 2018-08-04 10:31 | Progress Note ---
DATE: 08/04/2018 SUBJECTIVE: Postop day 5 right total knee replacement. He continued to complaints of pain in the abdomen and mild amount of shortness of breath. His main complaint today, however, is pain in the right knee. OBJECTIVE: Right knee examination, dressing is clean and dry. He has no tenderness of the calf. He can flex and extend the digits. Abdomen does appear to be less tense than yesterday. ASSESSMENT: 1. Postop day 5 right total knee replacement. 2. Ileus. PLAN: At this point in time, we will continue treatment for ileus. Continue Zofran. We will continue physical therapy and I did encourage him to walk. We will defer to the hospitalist as whether or not he would benefit from blood transfusion. Hemoglobin is stable at 7.7, but he does have some complaints of shortness of breath which may be a consequence of restricted lung disease. Continue TEDs and SCDs and Lovenox. I discussed with the hospitalist, switching his pain medication regimen from Toradol to Celebrex 400 mg daily for short term, they will switch this. We will continue to follow while in the hospital.
[2018-08-04] MEDS: CELECOXIB 100 MG CAP PO SCH ×2 (12:14→20:38)
--- NOTE | 2018-08-04 14:12 | Pharmacy Report ---
Pharmacy Glycemic Short Note 2 - Date of Service August 04, 2018 - Glycemic Short BSG Results (Last 24 hours): 08/03/18 08/03/18 08/04/18 17:13 20:42 05:23 Glucose 94 POC Glucose 105 H 117 H 08/04/18 08/04/18 08/04/18 06:42 08:13 11:55 Glucose POC Glucose 104 H 105 H 124 H OUTPATIENT ANTIDIABETIC REGIMEN: * 70/30 40 units AM & 70 units HS, metformin * A1c = 7.1 % 08/15/18 ASSESSMENT: BSGs euglycemic over the preceding 24hrs: [id number]/dL. Diet is being advanced to clears. He seems to be responding well to the 10units of lantus I ordered this morning. Will continue to follow and adjust insulin PRN PLAN FOR INPATIENT GLYCEMIC CONTROL: * Holding outpatient oral diabetes medications * Basal insulin * lantus doses predicated on PO status * Bolus insulin Q6 WHILE NPO * NovoLog per scale ACHS or Q6hrs while NPO * Goal Range: Low 110 mg/dL - High 150 mg/dL * Correction Factor: 18 mg/dL/unit * Nutritional / Prandial insulin per carb ratio of 1 unit per 6 grams CHO consumed PLAN FOR DISCHARGE: * A1c of 7.1% is near goal for patient based on age and co morbidities * Continue home regimen on discharge with dose titration as needed per outpatient provider
--- NOTE | 2018-08-04 16:06 | Hospitalist Progress Note ---
Date of Service August 04, 2018 Assessment & Plan (1) Postoperative anemia: H/H is low but stable. Asymptomatic. Cont to monitor. (2) Dyspnea: Some mild congestion on chest x-ray with clear lungs auscultation after holding his Lasix and starting IV fluids in the setting of postoperative ileus while patient was n.p.o. Dyspnea has resolved. Cont to wean off oxygen. (3) Postoperative ileus: Postoperative state, ileus in the setting of multiple narcotic medications to control pain. Tolerating clears, advance to diabetic diet now. (4) S/P total knee arthroplasty: Doing well per orthopedics. (5) CKD (chronic kidney disease), stage III: Stable, at baseline. Lasix and lisinopril on hold. He did receive 1 dose of Lasix for shortness of breath secondary to fluid overload after IV fluids were given. (6) Diabetes mellitus, type II: At goal on current insulin regimen. Continue per inpatient glycemic pharmacist recommendations. (7) Coronary artery disease: Stable, aspirin, statin, Coreg on hold while patient is n.p.o. (8) Hypertension: Restart home meds (9) AGUSTIN (obstructive sleep apnea): CPAP HS. Recommend re-evaluation by Sleep medicine as outpatient nonurgently. (10) RLS (restless legs syndrome): continue mirapex per home regimen (11) DVT prophylaxis: Lovenox Full code Disposition-pending orthopedic clearance. RECOMMENDATION: With starting celebrex in addition to Lasix and Lisinopril per home regimen would recommend a repeat BMP in one week with PCP. Recommend one week follow-up with PCP in office as a post-hospital visit. Hue Hadley DO [facility] Hospitalist Subjective Some residual nausea but is asking for solid foods knee pain is improved Denies lightheadedness, SOB, chest pain or other symptoms. Discussed starting Celebrex at least temporarily to help avoid narcotic pain meds Physical Exam Vital Signs (Past 24 Hours): Last Vital Signs Temp 36.4 C L 08/04/18 15:08 Pulse 60 08/04/18 15:08 Resp 18 08/04/18 15:08 BP 130/67 08/04/18 15:08 Pulse Ox 96 08/04/18 15:08 CONSTITUTIONAL: obese, vitals as above, NAD, malaise has improved EYES: normal conjuctivae, no scleral icterus ENT: MMM RESPIRATORY: clear to auscultation bilaterally, no crackles, rales or wheezes, normal respiratory effort CARDIOVASCULAR: regular rate and rhythm, S1 and 2 heard without murmurs, gallops or rubs, no JVD, no peripheral edema GASTROINTESTINAL: normal bowel sounds, soft, nontender, nondistended MUSCULOSKELETAL: strength 5/5 throughout, head is normocephalic and atraumatic SKIN: warm and dry NEUROLOGIC: CN 2-12 grossly intact, no gross neuro deficit. RLE warm and well- perfused, 2+pulses, sensation intact. PSYCHIATRIC: alert cooperative and oriented to person, place and time. Results & Data Laboratory Results Short CBC 08/04/18 Range/Units 05:23 WBC 6.43 (4.8-10.8) K/uL Hgb 7.7 L (14.0-18.0) g/dL Hct 23.9 L (42-52) % Plt Count 207 (130-400) K/uL BMP 08/04/18 05:23 Sodium 139 Potassium 3.8 Chloride 107 Carbon Dioxide 30 BUN 12 Creatinine 1.07 Glucose 94 Calcium 8.1 L Medications Administered Current Inpatient Medications Aspirin (Ecotrin Ectab) 81 mg PO BID [facility] Stop: 08/29/18 20:59 Last Admin: 08/03/18 07:52 Dose: 81 mg Documented by: Bisacodyl (Dulcolax) 10 mg [place] Q6H PRN PRN Reason: Constipation Stop: 08/29/18 10:34 Budesonide/Formoterol Fumarate (Symbicort 160mcg/4.5mcg) 2 puffs INH BID [facility] Stop: 08/29/18 20:59 Last Admin: 08/04/18 08:25 Dose: 2 puffs Documented by: Carvedilol (Coreg) 25 mg PO BID [facility] Stop: 08/29/18 20:59 Last Admin: 08/02/18 09:25 Dose: 25 mg Documented by: Celecoxib (Celebrex) 200 mg PO BID [facility] Stop: 09/03/18 11:59 Last Admin: 08/04/18 12:14 Dose: 200 mg Documented by: Dextrose (Dextrose 50%) 25 - 50 ml IV UD PRN; Protocol PRN Reason: Hypoglycemia Protocol Stop: 08/29/18 12:00 Diphenhydramine HCl (Benadryl Capsule) 25 mg PO Q8H PRN PRN Reason: Itching Stop: 08/29/18 10:34 Docusate Sodium (Colace) 100 mg PO BID [facility] Stop: 08/29/18 20:59 Last Admin: 08/02/18 08:47 Dose: Not Given Documented by: Doxazosin Mesylate (Cardura) 2 mg PO HS [facility] Stop: 08/29/18 20:59 Last Admin: 08/01/18 21:20 Dose: 2 mg Documented by: Enoxaparin Sodium (Lovenox) 40 mg SQ QAM [facility] Stop: 09/02/18 11:29 Last Admin: 08/04/18 08:24 Dose: 40 mg Documented by: Furosemide (Lasix) 40 mg PO QAM [facility] Stop: 08/30/18 09:59 Last Admin: 08/01/18 08:39 Dose: 40 mg Documented by: Glucagon (Glucagen) 1 mg SQ UD PRN; Protocol PRN Reason: Hypoglycemia Protocol Stop: 08/29/18 12:00 Glucose (Dex4 Glucose) 4 - 8 tabs PO UD PRN; Protocol PRN Reason: Hypoglycemia Protocol Stop: 08/29/18 12:00 Glucose (Glucose 40%) 15 - 30 gm PO UD PRN; Protocol PRN Reason: Hypoglycemia Protocol Stop: 08/29/18 12:00 Hydromorphone HCl (Dilaudid) 1 mg IV Q4H PRN PRN Reason: Pain Stop: 08/13/18 10:34 Last Admin: 08/02/18 16:54 Dose: 1 mg Documented by: Acetaminophen (Ofirmev) 1,000 mg in 100 mls @ 400 mls/hr IV Q8H [facility] Stop: 08/31/18 15:29 Last Admin: 08/04/18 08:23 Dose: 400 mls/hr Documented by: Pantoprazole Sodium 40 mg/ (Syringe) 10 mls @ 5 mls/min IV QAM [facility] Stop: 09/01/18 08:59 Last Admin: 08/04/18 08:23 Dose: 5 mls/min Documented by: Insulin Aspart (Novolog Flexpen) 0 units SC ACHS [facility] Stop: 09/02/18 16:29 Last Admin: 08/04/18 13:46 Dose: Not Given Documented by: Insulin Glargine (Lantus Solostar Pen) 0 units SC BID [facility]; Protocol Stop: 08/30/18 08:59 Last Admin: 08/02/18 09:28 Dose: 18 units Documented by: Lisinopril (Zestril) 20 mg PO BID [facility] Stop: 08/31/18 08:59 Last Admin: 08/01/18 08:40 Dose: 20 mg Documented by: Magnesium Hydroxide (Milk Of Magnesia) 30 ml PO Q6H PRN PRN Reason: Constipation Stop: 08/29/18 10:34 Miscellaneous (Carbohydrates For Hypoglycemia) 15 - 30 gm PO UD PRN PRN Reason: Hypoglycemia Treatment Stop: 08/29/18 12:00 Miscellaneous Information (Consult Glycemic Management Pharmacy) 1 ea N/A UD PRN PRN Reason: Consult Stop: 08/29/18 17:07 Multivitamins (Multivitamin Tab) 1 tab PO QAM [facility] Stop: 08/30/18 08:59 Last Admin: 08/02/18 09:23 Dose: Not Given Documented by: Naloxone HCl (Narcan) 0.1 mg IV Q5M PRN PRN Reason: Oversedation/Resp Depression Stop: 08/29/18 10:34 Nitroglycerin (Nitrostat) 0.4 mg SL UD PRN PRN Reason: Chest Pain Stop: 08/29/18 10:34 Ondansetron HCl (Zofran) 4 mg IV Q6H PRN PRN Reason: Nausea And Vomiting Stop: 08/29/18 10:34 Last Admin: 08/02/18 08:50 Dose: 4 mg Documented by: Oxycodone HCl (Roxicodone Immediate Rel) 5 - 10 mg PO Q4H PRN PRN Reason: Pain Stop: 08/13/18 10:34 Last Admin: 08/01/18 10:02 Dose: 10 mg Documented by: Polyethylene Glycol (Miralax Powder Packet) 17 gm PO DAILY PRN PRN Reason: Constipation Stop: 08/30/18 14:41 Pramipexole Dihydrochloride (Mirapex) 0.5 mg PO HS [facility] Stop: 08/29/18 20:59 Last Admin: 08/01/18 21:19 Dose: 0.5 mg Documented by: Ranitidine HCl (Zantac) 300 mg PO PM PRN PRN Reason: Heartburn Stop: 08/29/18 20:59 Sennosides (Senokot) 17.2 mg PO HS [facility] Stop: 08/29/18 20:59 Last Admin: 08/01/18 20:10 Dose: Not Given Documented by: Tramadol HCl (Ultram) 50 - 100 mg PO Q4H PRN PRN Reason: Pain Stop: 08/31/18 13:16 Last Admin: 08/02/18 15:22 Dose: 100 mg Documented by: Verapamil HCl (Calan Sr) 360 mg PO DAILY [facility] Stop: 08/30/18 08:59 Last Admin: 08/04/18 08:24 Dose: 360 mg Documented by: Vitamin D (Vitamin D3) 1,000 units PO QAM [facility] Stop: 08/30/18 08:59 Last Admin: 08/02/18 09:23 Dose: Not Given Documented by: (1) Coronary artery disease Associated angina: without angina Coronary Disease-Associated Artery/Lesion type: [place] artery [place] vs. transplanted heart: [place] heart Qualified Code(s): I25.10 - Atherosclerotic heart disease of [place] coronary artery without angina pectoris (2) S/P total knee arthroplasty Laterality: right Qualified Code(s): Z96.651 - Presence of right artificial knee joint (3) Hypertension Hypertension type: essential hypertension Qualified Code(s): I10 - Essential (primary) hypertension
[2018-08-05] MEDS: INSULIN ASPART 100 UNITS/ML 3 ML PEN SC SCH ×4 (06:26→16:47)
[2018-08-05 06:32] LABS: BUN Creatinine Ratio 10.8 (10-20); Calcium 8.5 mg/dl (8.5-10.1); Creatinine Clr Calc Pharmacy 74.3 ml/min; Est GFR (African American) 71.5; Est GFR (Non-African American) 61.7; Potassium 3.7 mmol/L (3.5-5.1)
[2018-08-05] MEDS: VERAPAMIL HCL 180 MG TABCR PO SCH (07:27)
[2018-08-05] MEDS: CELECOXIB 100 MG CAP PO SCH (07:28)
[2018-08-05] MEDS: ENOXAPARIN INJ 40 MG/0.4 ML SYR SQ SCH (08:10)
[2018-08-05] MEDS: PANTOprazole 40 MG in SYRINGE 0 ML IV SCH (08:11)
[2018-08-05] MEDS: BUDESONIDE/FORMOTEROL FUMARATE 160/4.5 60 PUFFS/INHALER INH SCH (08:13)
[2018-08-05] MEDS: ACETAMINOPHEN 1,000 MG/100 ML VIAL IV SCH (08:16)
[2018-08-05] MEDS ORDERED: ACETAMINOPHEN SOL 650 MG/20.3 ML UDC PO PRN (08:37)
[2018-08-05] MEDS ORDERED: DOCUSATE SODIUM 100 MG CAP PO PRN (08:41)
[2018-08-05] MEDS ORDERED: INSULIN GLARGINE SOLOSTAR 100 UNITS/ML 3 ML PEN SC SCH (08:41)
[2018-08-05 08:53] LABS: Hematocrit (blood only) 26.8 % (42-52); Hemoglobin 8.6 g/dL (14.0-18.0)
[2018-08-05] MEDS ORDERED: PANTOprazole 40 MG TAB PO SCH (09:00)
[2018-08-05] MEDS ORDERED: INSULIN GLARGINE SOLOSTAR 100 UNITS/ML 3 ML PEN SC ONE (09:00)
--- NOTE | 2018-08-05 10:10 | Orthopedic Progress Note ---
Date of Service August 05, 2018 Assessment & Plan (1) Right knee DJD: Postop day 6 status post right TKA. PT/ OT Continue DVT prophylaxis with aspirin twice daily, SCDs, ADRIAN recinos. Current pain management with oxycodone, IV Dilaudid, tramadol, acetaminophen Spoke w SS...D/C planning still uncertain, awaiting placement at [facility] vs. . D/C today when SS arrangements finalized and medically cleared. Subjective Postop day #6 status post right total knee arthroplasty. Patient is sitting up at the bedside. He is comfortable. He is having right lower extremity discomfort, denies abdominal discomfort, states he is tolerating po intake, has had multiple BM's, and doing well in PT. Hgb 8.6 this AM. BP elevated this AM. Physical Exam Vital Signs (Past 24 Hours): Last Vital Signs Temp 36.5 C 08/05/18 06:31 Pulse 61 08/05/18 07:26 Resp 18 08/05/18 06:31 BP 180/72 H 08/05/18 07:26 Pulse Ox 99 08/05/18 06:31 Physical Exam: A&Ox3. Right knee wound vac in tact. No erythema, no drainage. Toes and ankle mobile. No calf tenderness. N/V+.
[2018-08-05] MEDS: CARVEDILOL 25 MG TAB PO SCH (10:42)
[2018-08-05] MEDS: CHOLECALCIFEROL 1,000 UNITS TAB PO SCH (10:43)
[2018-08-05] MEDS: LISINOPRIL 20 MG TAB PO SCH (10:44)
[2018-08-05] MEDS: MULTIVITAMIN TAB PO SCH (10:44)
[2018-08-05] MEDS: FUROSEMIDE 40 MG TAB PO SCH (11:18)
[2018-08-05] MEDS: OXYCODONE HCL IR 5 MG TAB (IMMEDIATE RELEASE) PO PRN (11:19)
--- NOTE | 2018-08-06 07:15 | Discharge Summary ---
Date of Service Date of Discharge: August 05, 2018 Date of Admission: 07/30/18 Admission HPI Per Admitting Provider Mr Garibay is a 73 year old male who complains of right knee pain, presents for pre-op evaluation prior to right total knee replacement on 07-30-18. He presents with chronic pain, crepitus and instability on the right side. Patient is here today for pre-op visit for right TKA for 07/30/18. He states that the symptoms have been chronic non-traumatic. The symptoms occur constantly with intermittent worsening. Currently the patient states that the symptoms are severe. The pain is described as aching, throbbing and sometimes sharp. The symptoms occur continuously. He rates his current pain as 10/10, least is a 3/10. The symptoms are aggravated by daily activities and walking. Gumaro states that the symptoms are relieved by no specific activity. In addition to right knee pain the patient is also experiencing limping. Patient is using cane for ambulation. he states that he did have a cortisone injection into that knee several years ago. Principal Diagnosis right knee osteoarthritis Discharge Exam Constitutional WD/WN, vitals as above no acute distress Musculoskeletal NVDI, calf SNT, negative candy sign. DP palpable, able to wiggle toes/ankle movement without difficulty. CHANDA dressing clean dry and intact. expected post- operative bruising noted. Discharge Data Allergies Allergy/AdvReac Type Severity Reaction Status Date / Time clindamycin Allergy Mild RASH Verified 07/30/18 05:49 Consultations 07/30/18 10:35 Consult Case Management - Discharge Planning Routine Consult Hospitalist Routine Procedures Performed Operation Date: 07/30/18 07:15 Actual Procedures p Right Total Knee Arthroplasty(Right) - Robert Villarreal DO Ordered Studies 07/30/18 05:00 US - OR guided needle placemen Routine 08/02/18 09:28 US venous doppler LE RT Routine Hospital Course (1) Right knee DJD: Postop day 6 status post right TKA. PT/ OT Continue DVT prophylaxis with aspirin twice daily, SCDs, ADRIAN recinos. Current pain management with oxycodone, IV Dilaudid, tramadol, acetaminophen Spoke w SS...D/C planning still uncertain, awaiting placement at [facility] vs. . D/C today when SS arrangements finalized and medically cleared. Per Medicine: (1) Postoperative anemia: H/H is low but stable. Asymptomatic. Cont to monitor. (2) Dyspnea: Some mild congestion on chest x-ray with clear lungs auscultation after holding his Lasix and starting IV fluids in the setting of postoperative ileus while patient was n.p.o. Dyspnea has resolved. Cont to wean off oxygen. (3) Postoperative ileus: Postoperative state, ileus in the setting of multiple narcotic medications to control pain. Tolerating clears, advance to diabetic diet now. (4) S/P total knee arthroplasty: Doing well per orthopedics. (5) CKD (chronic kidney disease), stage III: Stable, at baseline. Lasix and lisinopril on hold. He did receive 1 dose of Lasix for shortness of breath secondary to fluid overload after IV fluids were given. (6) Diabetes mellitus, type II: At goal on current insulin regimen. Continue per inpatient glycemic pharmacist recommendations. (7) Coronary artery disease: Stable, aspirin, statin, Coreg on hold while patient is n.p.o. (8) Hypertension: Restart home meds (9) AGUSTIN (obstructive sleep apnea): CPAP HS. Recommend re-evaluation by Sleep medicine as outpatient nonurgently. (10) RLS (restless legs syndrome): continue mirapex per home regimen (11) DVT prophylaxis: Lovenox Full code Disposition-pending orthopedic clearance. RECOMMENDATION: With starting celebrex in addition to Lasix and Lisinopril per home regimen would recommend a repeat BMP in one week with PCP. Recommend one week follow-up with PCP in office as a post-hospital visit. Total Time Total Time Spent Total Time Spent (In Minutes): 20 Total Time Includes: Examination of the Patient, Discharge Planning and Medication Reconciliation Discharge Plan Discharge Items Patient Disposition: Transfer Long-Term Fac Reason For Visit: Right Knee Osteoarthritis Discharge Diagnosis: right total knee replacement Discharge Goals: Decrease discomfort, Improve function and Increase independence Activity: Per 'Additional Instructions' section Driving/Machine Use Comment: no driving until cleared by your physician Weightbearing: Right weightbearing Weightbearing Comment: WBAT with walker Non-emergency contact: Primary Care Provider and Surgeon Call non-emergency contact if: you have any medication questions, your temperature is above 101, your wound has increased redness, your wound has increased drainage and your wound pain has increased Follow-up/Referrals: Joaquín Luna MD [Primary Care Provider] - Diet: Regular Other Ambulatory Orders: Basic Metabolic Panel (Routine) Timeframe: 2 Weeks Location: Determined by Patient Ordered By: Hue Ramsay Provider Instructions: ACTIVITY RECOMMENDATIONS: SELF CARE INSTRUCTIONS AFTER TOTAL KNEE REPLACEMENT A. You may need to continue a physical therapy program after discharge from the hospital. There are several options available to you. Your doctor will assist you in selecting the best one for you. 1. An out-patient facility 2 to 3 times a week for therapy or home therapy. 2. Continue working on all exercises taught to you in the hospital. Your goals should be to increase bending of your knee to 90 degrees and beyond and to fully straighten your knee. B. You may progress at your own pace from walking with a walker or crutches to a cane; then to no assistive devices. C. Make walking a part of your daily routine. Be up as much as comfortable with rest periods throughout the day. Rest with leg elevation is very important. Use the ice wrap frequently for the first 3-4 weeks. D. There are no restrictions on activities. You may ride in a car, shop, participate in job analysis manager and all social activities. E. Wear the long elastic stockings (ADRIAN hose) 20 hours a day for 2 weeks after surgery. They can be removed several times a day for laundering and for a bath. F. You may shower, no tub baths until cleared by your doctor. SPECIAL CARE INSTRUCTIONS: VERY IMPORTANT TO READ AND REVIEW A. There are a few signs you need to watch for after you are home. Call [facility] if you notice any of the followin. Increased severe knee pain. Some pain is expected especially when you exercise. 2. Increased swelling in your leg or knee; pain or swelling of the calf muscle in either lower leg. 3. Any fluid drainage from the incision. 4. Shortness of breath or chest pain. B. Please call [facility] at if you have any concerns or questions about your operation or recovery. The doctor or his nurse will return your call promptly. C. You must take antibiotics before dental work, bladder, bowel or other surgery. Your doctor will provide you with a permanent care to carry describing this precaution. IMPORTANT: * REMEMBER TO TAKE ASPIRIN, 81 MG, TWICE DAILY FOR 4 WEEKS UNLESS OTHERWISE DIRECTED. THIS IS YOUR BLOOD THINNER. * HIGH RISK PATIENTS MAY BE PRESCRIBED A STRONGER BLOOD THINNER. THIS WILL BE PROVIDED AT DISCHARGE. * CALL IF INCREASED PAIN, REDNESS, DRAINAGE OR FEVER GREATER THAT 101. * WEAR ADRIAN HOSE 20 HOURS PER DAY FOR 2 WEEKS. * CHANDA Dressing- This is a large suction dressing covering your incision. This will help pull any excess drainage from the wound and allow your incision to heal properly. You may shower with this if you can keep the unit outside of the shower. If any bleeding or leakage is noted please call your doctor's office. This will remain on your incision for 7 days and then should be removed. This can be done yourself or by the home nursing staff if applicable. The entire unit is disposable once removed. Once removed, keep incision clean and dry. If redness or drainage is noted, please call your surgeon. *ONCE THIS IS REMOVED, FOLLOW THESE INSTRUCTIONS: DERMABOND Prineo- This is a mesh tape dressing that is covered with glue. It should remain in place until the incision is properly healed, usually 10-14 days. This dressing is designed to naturally slough off. You may trim the excess mesh tape as it peels off. Incision may be briefly wet in a shower. Dry immediately by blotting with a clean, dry towel. Do not bath or swim until instructed by your doctor. Do not scratch, rub, or pick at the dressing. Do not apply any topical ointments or lotions until dressing is completely removed and/or instructed by your doctor. There may be a small piece of suture material at one end of your incision. Do not pull or trim this. If it is bothersome or catching on clothing, you may cover it with a band-aid. FOLLOW UP VISIT: If appointment is not already scheduled: Please call [facility] to make a follow-up appointment for 2 weeks after your surgery at . FOLLOW UP WITH PCP IN 1 WEEK WITH BLOOD WORK. Date & Time 08/12/2018 11:20 AM Provider Joaquín Luna MD Department Internal Medicine [facility] You aspirin was held while you are on the Lovenox injections and Celebrex, however, this will likely need to be restarted once you complete this therapy. Please check with Dr. Luna regarding the most appropriate time to restart this. It was a pleasure taking care of you! Please call if you have any questions or problems. You can reach a [facility] hospitalist on duty at [facility] 24 hours a day by calling [phone]. Take care of yourself. Hue Hadley, DO [facility] Hospitalist Prescriptions: New celecoxib [Celebrex] 100 mg Capsule 200 mg PO BID 30 Days Qty: 120 RF: 0 tramadol 50 mg Tablet 50 - 100 mg PO Q4H PRN (Reason: pain) Qty: 40 RF: 0 enoxaparin 40 mg/0.4 mL Syringe 40 mg subcut QAM 30 Days Qty: 12 RF: 0 Continued furosemide 40 mg Tablet 40 mg PO BID RF: 0 atorvastatin 80 mg Tablet 80 mg PO PM RF: 0 carvedilol 25 mg Tablet 25 mg PO BID RF: 0 verapamil 360 mg Capsule,Ext Rel. Pellets 24 Hr 360 mg PO DAILY RF: 0 ranitidine HCl 300 mg Tablet 300 mg PO HS PRN (Reason: Heartburn) RF: 0 lisinopril 20 mg Tablet 20 mg PO BID RF: 0 cyanocobalamin (vitamin B-12) [Vitamin B-12] 1,000 mcg Tablet 1,000 mcg PO QAM RF: 0 potassium chloride 10 mEq Tablet Extended Release 10 meq PO HS RF: 0 pramipexole 0.5 mg Tablet 0.5 mg PO HS RF: 0 pantoprazole 40 mg Tablet,Delayed Release (Dr/Ec) 40 mg PO HS RF: 0 metformin 1,000 mg Tablet 1,000 mg PO BID RF: 0 nitroglycerin 0.4 mg Tablet, Sublingual 1 tab Sublingual DIRECTED PRN (Reason: Chest Pain) RF: 0 doxazosin 2 mg Tablet 2 mg PO HS RF: 0 cinnamon bark [Cinnamon] 500 mg Capsule 500 mg PO QAM RF: 0 Novolin 70-30 FlexPen U-100 100 unit/mL (70-30) Insulin Pen 40 unit SUBCUT QAM RF: 0 insulin NPH and regular human [Novolin 70-30 FlexPen U-100] 100 unit/mL (70- 30) Insulin Pen 70 unit SUBCUT HS PRN (Reason: sliding scale) RF: 0 cholecalciferol (vitamin D3) [Vitamin D3] 1,000 unit Tablet 1,000 unit PO QAM RF: 0 Symbicort 160-4.5 mcg/actuation Hfa Aerosol Inhaler 2 puff INHALATION BID RF: 0 Discontinued aspirin [Aspirin Low Dose] 81 mg Tablet,Delayed Release (Dr/Ec) 81 mg PO QAM RF: 0 Stand-Alone Forms: [facility] Discharge Orders: Discharge Order (Routine); Ordered 08/05/18 Ordered By: Kerwin Infante Skilled Items Patient informed of condition?: Yes DNR: No Discharge Level of Care: Skilled Communicable Disease: No Discharge Prognosis: Improving Admission Data Admit Date/Time: 07/30/18 09:19 Attending Provider: Robert Villarreal Admit Provider: Robert Villarreal Primary Care Provider: Joaquín Luna Other Providers: Hue Hadley ; Wyatt Watts Service: Surgical Services Other Interventions: Discharge Summary Assessment (RN) Last Done: 08/05/18 17:06 DC Date/Time DO NOT enter until pt leaves facility: 08/05/18 17:17
--- NOTE | 2018-08-09 17:17 | Hospitalist Progress Note ---
Date of Service August 02, 2018 Assessment & Plan (1) Postoperative ileus: Emesis 2/2 post-op ileus likely related to overuse of narcotics for post- operative pain. Cont with NSAIDs/Tylenol. Avoid narcotics if possible. CKD Stage III-baseline post op state-continues to recover. Wound care per Ortho. Cont Incentive [place] DMII-at goal on ISS and Lantus CHF-compensated, Lasix held in setting of vomiting CAD-stable, cont medical management. HTN-controlled. DVT proph-ASA, may switch to Lovenox while NPO Hue Hadley DO [facility] [address] [facility] Hospitalist Subjective improved. Physical Exam Vital Signs (Past 24 Hours): Last Vital Signs Temp 36.9 C 08/05/18 17:06 Pulse 66 08/05/18 17:06 Resp 18 08/05/18 17:06 BP 143/67 H 08/05/18 17:06 Pulse Ox 94 08/05/18 17:06 CONSTITUTIONAL: obese, vitals as above, NAD EYES: normal conjuctivae, no scleral icterus ENT: MMM RESPIRATORY: clear to auscultation bilaterally, no crackles, rales or wheezes, normal respiratory effort CARDIOVASCULAR: regular rate and rhythm, S1 and 2 heard without murmurs, gallops or rubs, no JVD, no peripheral edema GASTROINTESTINAL: normal bowel sounds, soft, nontender, nondistended MUSCULOSKELETAL: strength 5/5 throughout, head is normocephalic and atraumatic SKIN: warm and dry NEUROLOGIC: CN 2-12 grossly intact, no gross neuro deficit. RLE warm and well- perfused, 2+pulses, sensation intact. PSYCHIATRIC: alert cooperative and oriented to person, place and time.
--- NOTE | 2018-08-09 17:21 | Hospitalist Progress Note ---
Date of Service August 05, 2018 Assessment & Plan (1) Postoperative ileus: resolved. Doing well. Further instructions per dc summary. Subjective Feels well with complete resolution of symptoms, and he is now tolerating solid foods since last night. Ready for discharge today. Physical Exam Vital Signs (Past 24 Hours): Last Vital Signs Temp 36.9 C 08/05/18 17:06 Pulse 66 08/05/18 17:06 Resp 18 08/05/18 17:06 BP 143/67 H 08/05/18 17:06 Pulse Ox 94 08/05/18 17:06 CONSTITUTIONAL: obese, vitals as above, NAD EYES: normal conjuctivae, no scleral icterus ENT: MMM RESPIRATORY: clear to auscultation bilaterally, no crackles, rales or wheezes, normal respiratory effort CARDIOVASCULAR: regular rate and rhythm, S1 and 2 heard without murmurs, gallops or rubs, no JVD, no peripheral edema GASTROINTESTINAL: normal bowel sounds, soft, nontender, nondistended MUSCULOSKELETAL: strength 5/5 throughout, head is normocephalic and atraumatic SKIN: warm and dry NEUROLOGIC: CN 2-12 grossly intact, no gross neuro deficit. RLE warm and well- perfused, 2+pulses, sensation intact. PSYCHIATRIC: alert cooperative and oriented to person, place and time.
== END 2018-08-05 17:17 | DRG 470 ==
LOC: ASU 05:12 → 3E 09:19
DX: K21.9 Gastro-esophageal reflux disease without esophagitis; K56.7 Ileus, unspecified; I13.0 Hypertensive heart and chronic kidney disease with heart failure and stage 1 through stage 4 chronic kidney disease, or unspecified chronic kidney disease; I50.32 Chronic diastolic (congestive) heart failure; D62 Acute posthemorrhagic anemia; J98.4 Other disorders of lung; Z79.82 Long term (current) use of aspirin; N18.3 Chronic kidney disease, stage 3 (moderate); Z88.1 Allergy status to other antibiotic agents; Z83.3 Family history of diabetes mellitus; G25.81 Restless legs syndrome; Z87.891 Personal history of nicotine dependence; E78.5 Hyperlipidemia, unspecified; I25.10 Atherosclerotic heart disease of native coronary artery without angina pectoris; Z85.9 Personal history of malignant neoplasm, unspecified; G47.33 Obstructive sleep apnea (adult) (pediatric); I25.2 Old myocardial infarction; E11.40 Type 2 diabetes mellitus with diabetic neuropathy, unspecified; M17.11 Unilateral primary osteoarthritis, right knee; Z79.84 Long term (current) use of oral hypoglycemic drugs